=== PATIENT | female | born 1950 | race Caucasian/White ===

== ENCOUNTER → 2017-11-27 14:07 | Outpatient (CLI) | payer MEDICARE, OTHER, SELFPAY ==
--- NOTE | 2017-11-27 14:12 | CT_ITS ---
CT chest w con HISTORY: Follow-up right lung mass, emphysema, history of smoking ITS.REASON: LUNG MASS ORDERING PHYSICIAN: Florian Correa MD PATIENT AGE: 67 years TECHNIQUE: Axial images obtained following the administration of 75 mL of Isovue 370 . Sagittal, and coronal reformatted images are also generated and reviewed. All CT scans at the facility use one or more dose reduction, viz: automated exposure control; ma/kV adjustment per patient size (including targeted exams where dose is matched to indication; i.e. head); or iterative reconstruction technique. COMPARISON: 04/26/2017, 01/18/2017 FINDINGS: There are multiple small isodense lesions in the lower pole of the right lobe of the thyroid gland. This does not appear significantly changed. Irregular opacity once again noted in the right apex. The dimensions are somewhat difficult to measure due to the irregular shape measuring up to 4 cm transverse and 2 cm AP. This does not appear significantly changed. No mediastinal or hilar mass or adenopathy. There are biapical blebs with centrilobular emphysema. Fibrotic changes are present in the right upper lobe medially and in the left apex. There is a calcified granuloma in the left upper lobe. No new nodules are evident. 3 mm noncalcified nodule present in the right middle lobe unchanged. No evidence of aortic aneurysm or central pulmonary embolus. Mild atheromatous changes involving the aorta. No acute bony anomalies. Upper abdominal images show exophytic left renal cysts IMPRESSION: Overall stable CT appearance of the chest. There is been no significant change in the irregular opacity in the right apex which may represent postinflammatory fibrotic changes. Continued annual follow-up is recommended in this patient with history of smoking.
== END ==
PROVIDERS: Family Provider Family Medicine; PCP Family Medicine; Visit Provider Family Medicine
DX: R91.8 Other nonspecific abnormal finding of lung field (principal)
CPT/HCPCS: 71260; Q9967

== ENCOUNTER 2018-02-17 08:30 | Outpatient (RCR) | payer OTHER, SELFPAY ==
--- NOTE | 2017-12-26 11:23 | HMH.PTOPEV ---
PT Outpatient Evaluation Rehab PT Outpatient Evaluation Start: 12/26/17 11:14 Freq: Status: Active Protocol: Document 12/26/17 11:15 KELLEY (Rec: 12/26/17 11:23 KELLEY [id number]) Electronically Signed By Joey Noonan, PT 12/26/17 11:15 Outpatient Therapy Subjective History Subjective History Pt reports injury to neck occurred on 11/23/17 while at work. 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 Pt reports that pain (L arm) then progressed to L sided neck with headache. Pt currently reports constant neck pain L >R, and L UE s/s from shoulder to finger tips. Chief Complaint Pain Paresthesia Weakness Symptom Type Ache Throb Sharp Dull Stabbing Burning Numbness Tingling Shooting Symptoms Relieved By Rest/Positioning Symptoms Aggravated By Physical Activity Lifting Prior Functional Limitations None Current Functional Limitations Reaching Lifting Housework Driving Symptom Description Constant but Variable Level of pain today (0-10) 6 Pain scale - at its best (0-10) 6 Pain scale - at its worst (0-10) 8 Cervical Eval Palpation Cervical Muscles R Cervical Paraspinal L Cervical Paraspinal R Suboccipital L Suboccipital R CT Junction L CT Junction R Upper Trapezius L Upper Trapezius Cervical/Thoracic Palpation Findings Tenderness Spasm Muscle Guarding Posture Head/C-Spine Posture Sitting Position Flexed Head/C-Spine Posture Standing Position Flexed Flexibility Deficits Upper Trapezius Muscle Length (R) Mild Tightness (L) Moderate Tightness Levaetor Scapulae Muscle
== END 2018-02-17 08:31 | disposition home or self-care (01) ==
LOC: PT 08:30
PROVIDERS: Family Provider Family Medicine; PCP Nurse Practitioner Family; Visit Provider Nurse Practitioner Family
DX: M54.12 Radiculopathy, cervical region (principal)
CPT/HCPCS: 97010; 97012; 97014; 97035; 97110; 97140; 97163; G0283

== ENCOUNTER 2018-02-17 09:00 | Outpatient (RCR) | payer OTHER, MEDICARE, SELFPAY ==
--- NOTE | 2017-12-13 15:32 | HMH.OTOPEV ---
OT Inpatient Evaluation Rehab OT Outpatient Eval Start: 12/13/17 15:20 Freq: Status: Active Protocol: Document 12/13/17 15:21 RMSCOTTHALMoises (Rec: 12/13/17 15:32 [facility] SYSTEM[facility]ises [id number]) Electronically Signed By Candace Brown OT 12/13/17 15:21 Outpatient Therapy Subjective History Subjective History Pt is a 67 year old female who reports to therapy for initial evaluation to left shoulder. Pt currently works at [employer] fulltime and started there in October,. Pt reports she was standing on the line at work and reached for something with the left arm and she suddenly had sharp pain go down to the left elbow from the shoulder. Pt's pain has continued. Pt also does work overhead, pushing, pulling, and lifting materials . Pt demonstrates with decreased AROM and strength at left shoulder. Pt will continue to be seen and address these deficits. 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
== END 2018-02-17 09:01 | disposition home or self-care (01) ==
LOC: OT 09:00
PROVIDERS: Family Provider Family Medicine; PCP Nurse Practitioner Family; Visit Provider Nurse Practitioner Family
DX: M25.512 Pain in left shoulder (principal)
CPT/HCPCS: 97014; 97033; 97035; 97110; 97166; G0283

== ENCOUNTER → 2018-03-11 12:46 | Outpatient (CLI) | payer OTHER, SELFPAY ==
--- NOTE | 2018-03-11 12:56 | MR_ITS ---
MR shoulder LT wo con HISTORY:Left shoulder pain extending into the neck and humerus ITS.REASON: pain ORDERING PHYSICIAN: Yessenia Coy PATIENT AGE: 67 years Comparison: None TECHNIQUE: Standard multiplanar multiecho sequences are performed without contrast. FINDINGS: There is moderate acromioclavicular hypertrophy with a downsloping acromion. There is thickening of the supraspinatus tendon with increased T2 signal consistent with tendinopathy/tendinosis. There is discontinuity along the undersurface of the supraspinatus tendon with some heterogeneous signal intensity within the substance of the supraspinatus consistent with partial tear. At the distal aspect of the supraspinatus tendon at the insertion upon the greater tuberosity of the humerus there is focal increased T2 signal suggesting a more prominent partial tear at this region. There is does appear to be some fibers intact especially. A complete thickness tear tear is not identified. Tendinopathy/tendinosis of the infraspinatus tendon also noted also suspect partial tear distally.. The subscapularis and teres minor tendons are intact. No obvious labral tear. Focal increased T2 signal involves the greater tuberosity of the humerus consistent with bone marrow edema at the region of the insertion of the first benign is tendon. Small amount fluid is present in the subcoracoid region. The bicipital tendon is in place IMPRESSION: 1. Acromioclavicular arthropathy with subacromial stenosis which may result in impingement symptomatology. 2. Partial tear of the supraspinatus tendon with tendinopathy/tendinosis. A tear at the insertion on the greater tuberosity as expected with some intact fibers superficially and with edema of the greater tuberosity. 3. Tendinopathy/tendinosis of the infraspinatus tendon with partial tear distally as before
== END ==
PROVIDERS: Family Provider Family Medicine; PCP Nurse Practitioner Family; Visit Provider Nurse Practitioner Family
DX: M25.512 Pain in left shoulder (principal); Z02.6 Encounter for examination for insurance purposes
CPT/HCPCS: 73221

== ENCOUNTER → 2019-04-23 12:52 | Outpatient (CLI) | payer OTHER, SELFPAY ==
--- NOTE | 2019-04-23 13:22 | MR_ITS ---
PROCEDURE: MR SHOULDER LT WO CON CLINICAL INDICATION: LEFT SHOULDER PAIN COMPARISON: No exams were available for comparison TECHNIQUE: Routine multi-echo and multiplanar images. FINDINGS: Signal from the osseous marrow elements are normal except for subchondral increased T2 signal at the left AC joint area along with some surrounding mildly prominent area of increased T2 signal within the soft tissues likely from arthritic changes. The supraspinatus tendon shows 2 sites of abnormal signal, 1 of which involves the anterior insertion at the greater tubercle where there is moderate increased T2 signal and there is a focal full-thickness defect in the supraspinatus tendon approximately 10 millimeters proximal to the greater tubercle. There is perhaps on the minimal amount of fluid in the adjacent subdeltoid bursa. There is narrowing of the glenohumeral joint with loss of the articular cartilage involving the humeral head and glenoid process of the scapula. There is generalized attenuation of the entire labrum especially at the 12 o'clock position. Signal from the surrounding muscles appear to be unremarkable. Long head of the biceps tendon appears to be intact. IMPRESSION: Two sites of abnormal signal involving supraspinatus tendon, and there could be a partial tear at the insertion site at the greater tubercle with a full-thickness tear involving the supraspinatus tendon approximately 1 centimeter proximal to the greater tubercle. Attenuated labrum could be developmental or from chronic degenerative change. Arthritic changes at the AC joint without impingement. Dictated by: Ernesto Rendon 04/23/2019 15:34 Electronically signed by Ernesto Rendon in [facility] 04/23/2019 15:34
== END ==
PROVIDERS: PCP Family Medicine; Visit Provider Orthopaedic Surgery Adult Reconstructive Orthopaedic Surgery
DX: M25.512 Pain in left shoulder (principal)
CPT/HCPCS: 73221

== ENCOUNTER 2019-04-24 14:00 | Outpatient (RCR) | payer OTHER, MEDICARE, SELFPAY ==
--- NOTE | 2018-10-28 14:04 | HMH.RHREAS ---
Rehab Reassessment Rehab OP Re-assessment Start: 07/25/18 10:40 Freq: Status: Active Protocol: Document 10/28/18 12:59 TFRY (Rec: 10/28/18 14:04 TFRY [id number]) Electronically Signed By Marifer Haddad OT 10/28/18 12:59 Rehab Re-assessment Subjective Subjective My shoulder is about 80-85% better. Objective Objective Notes Patient seen this date for skilled occupational therapy services. See exeercise flow sheet for exercises. Reassessment of left shoulder - AROM - flexion - 0-135; abduction - 0-104; int. rot. - 0-50; ext. rot. - 0-12. PROM - left shoulder - flexion - 0 -150; abduction - 0-135; int. rot. - 0-68; ext. rot. - 0-35. Left shoulder strength - flexion - 3+/5; abduction - 3/ 5; int. rot. - 3+/5; ext. rot. - 3+/5. Pain on average is a 5. Patient reports being able to do more around the house than able to do previously. Assessment Progress Assessment Progressing as Expected Assessment Notes ROM/strength are improving. Patient goals met STG's - 7/8 LTG's - / Goals Not Met AROM/strength Plan Plan Continue to work on increasing AROM/strength of left shoulder. Frequency of Therapy 2x/week Duration of therapy 8 weeks Time and Billing Re-Eval Time 5 Re-Eval Billing Units 0 PHYSICIAN CERTIFICATION: I certify the specified therapy services for Narciso Hernandez are required, authorized, and reviewed every 30 days.
== END 2019-04-24 14:05 | disposition home or self-care (01) ==
LOC: OT 14:00
PROVIDERS: Visit Provider Orthopaedic Surgery Adult Reconstructive Orthopaedic Surgery
DX: S43.422A Sprain of left rotator cuff capsule, initial encounter (principal)
CPT/HCPCS: 97014; 97110; 97140; 97164; 97165; G0283

== ENCOUNTER 2019-06-16 10:00 | Outpatient (RCR) | payer OTHER, SELFPAY | END 2019-06-16 10:05 | disposition home or self-care (01) | LOC: OT 10:00 | PROVIDERS: Visit Provider Orthopaedic Surgery Adult Reconstructive Orthopaedic Surgery | DX: M25.512 Pain in left shoulder (principal) | CPT/HCPCS: 97014; 97110; 97140; 97165; G0283 ==

== ENCOUNTER → 2019-08-25 13:16 | Outpatient (CLI) | payer MEDICARE, SELFPAY ==
--- NOTE | 2019-08-25 13:27 | CT_ITS ---
PROCEDURE: CT CHEST W CON CLINCAL INDICATION: chest discomfort Chest pain COMPARISON: CHWWO CT CHEST W/WO CONTRAST from 04/26/[address] chest w con from 11/27/2017 TECHNIQUE: IV Contrast: 75ml Optiray 350 Axial images obtained with sagittal and coronal reformats. All CT scans at the facility use one or more dose reduction, viz: automated exposure control, ma/kV adjustment per patient size (including targeted exams where dose is matched to indication, i.e. head), or iterative reconstruction technique. FINDINGS: There is a septated cystic lesion in the right lobe of the thyroid gland measuring 1.9 cm. No mediastinal or hilar mass or adenopathy. Changes of COPD with centrilobular and paraseptal emphysema. Irregular increased density is once again noted in the right apex which does not appear significantly changed consistent with pulmonary fibrotic cyst changes. There is some scarring also in the left apex. There are other areas of scarring in both lungs. Calcified granuloma is present in the left upper lobe. No new nodules are evident. No lobar consolidation or collapse. Upper abdominal images show prior cholecystectomy. Left renal cysts are noted IMPRESSION: 1. Stable CT appearance of the chest. Irregular increased density once again noted in the right apex not significantly changed the 2. Cystic lesion within the right lobe of the thyroid gland not significantly changed. 3. COPD with scattered areas of scarring with centrilobular and paraseptal emphysema. Dictated by: Reed Lo MD 08/27/2019 08:08 Electronically signed by Reed Lo MD in [facility] 08/27/2019 08:08
[2019-08-25 13:40] LABS: Blood Urea Nitrogen 15 mg/dL (7-18); Creatinine,Serum 0.69 mg/dL (0.55-1.02); Estimated Glomerular Filt Rate 84 ml/min (>60); GFR (African American) 102 ML/MIN (>60)
== END ==
PROVIDERS: PCP Emergency Medicine; Visit Provider Emergency Medicine
DX: R07.89 Other chest pain (principal)
CPT/HCPCS: 36415; 71260; 82565; 84520; Q9967

== ENCOUNTER → 2019-12-18 10:13 | Outpatient (CLI) | payer MEDICARE, SELFPAY ==
--- NOTE | 2019-12-18 10:13 | MM_ITS ---
PROCEDURE: MM DIG SCREENING MAMM BI W/CAD Digital Breast Tomosynthesis Included CLINICAL INDICATION: screening There is no personal or family history of breast cancer. COMPARISON: DIGMAMMS MAMMOGRAM SCREEN-METAL TECHNICIAN N/C from 05/10/2004 DIGMAMMS MAMMOGRAM SCREEN-METAL TECHNICIAN N/C from 07/24/2007 DMSB DIG MAMM-SCREEN JOSUE W/CAD from 01/18/2017 TECHNIQUE: Standard CC and MLO images and 3D Tomosynthesis was obtained. R2 CAD reviewed. FINDINGS: Moderate diffuse fibroglandular densities are seen in the central portions of both breast. The findings of bilateral and symmetrical. There is no suspicious lesion and no suspicious microcalcifications. IMPRESSION: Moderate breast density with no suspicious lesions seen BI-RAD Category: 1 Negative FOLLOW-UP: 1YR 1 Year Follow-up (A letter has been sent to the patient regarding results of the study.) Dictated by: Dr. James Monte MD 12/18/2019 11:[address] James Monte MD in [facility] 12/18/2019 11:16
== END ==
PROVIDERS: PCP Emergency Medicine; Visit Provider Emergency Medicine
DX: Z12.31 Encounter for screening mammogram for malignant neoplasm of breast (principal)
CPT/HCPCS: 77063; 77067

== ENCOUNTER → 2019-12-23 09:33 | Outpatient (CLI) | payer MEDICARE, SELFPAY | PROVIDERS: PCP Emergency Medicine; Visit Provider Emergency Medicine | DX: R06.02 Shortness of breath (principal) | CPT/HCPCS: 94060; 94618; 94640; 94726; 94729 ==

== ENCOUNTER 2020-04-19 15:00 | Outpatient (RCR) | payer OTHER, SELFPAY | END 2020-04-19 16:00 | disposition home or self-care (01) | LOC: OT 15:00 | PROVIDERS: Visit Provider Orthopaedic Surgery Adult Reconstructive Orthopaedic Surgery | DX: M75.102 Unspecified rotator cuff tear or rupture of left shoulder, not specified as traumatic (principal) | CPT/HCPCS: 97014; 97110; 97140; 97164; 97166; G0283 ==

== ENCOUNTER 2020-07-20 13:08 | Emergency (ER) | payer MEDICARE, SELFPAY ==
[2020-07-20] VITALS (11 sets, daily range): BP systolic 117–143; BP diastolic 64–95; PULSE 88–100; RESP 18–20; TEMP 36.1–37; O2SAT 96–97; BMI 17.5
--- NOTE | 2020-07-20 13:03 | ECG_ITS ---
APPROVED REPORT Exam: Resting ECG HR:99 bpm ECG Measurements Heart Rate 99 AXES LA 146 P 87 QRSd 94 QRS 59 QT 346 T 72 QTc 444 Conclusion Normal sinus rhythm Late r wave progression - unchanged from prior Abnormal ECG Electronically signed by : Romulo Flores, 07/21/2020 19:21:46
--- NOTE | 2020-07-20 13:12 | XR_ITS ---
PROCEDURE: XR CHEST PORTABLE CLINICAL HISTORY: CP, SOA COMPARISON: CR CXR1 CHEST-PORTABLE from 09/22/2013 CR CXR1VP XR chest portable from 11/23/[address] CHEST W CON from 08/25/2019 FINDINGS: Moderate emphysematous changes are noted similar to the most recent chest 11/23/2017. There may be mild bulous change right upper lobe. There is minimal postinflammatory scarring left lower lobe and this was seen previously. There is no acute infiltrate. Cardiac size is normal and the peripheral vascularity is somewhat attenuated consistent emphysematous changes. IMPRESSION: Moderate COPD, no acute chest pathology noted Dictated by: Dr. James Monte MD 07/20/2020 13:39 Dr. James Monte MD in [facility] 07/20/2020 13:39
--- NOTE | 2020-07-20 13:19 | PC.NURSE ---
Lab at bedside
[2020-07-20 13:43] LABS: Basophils # 0.2 K/mm3 (0-0.2); Basophils % 1.6 % (0.1-2.0); Eosinophils # 0.2 K/mm3 (0.0-0.4); Eosinophils % 1.7 % (0.1-12.0); Hematocrit 57.7 % (37.0-47.0); Lymphocytes # 3.5 K/mm3 (0.7-4.5); Lymphocytes % 34.5 % (10-50); Mean Corpuscular HGB Conc 32.2 g/dL (31.8-35.4); Mean Corpuscular Hemoglobin 28.8 pg (27.0-31.2); Mean Corpuscular Volume 89.4 fl (81-99); Mean Platelet Volume 7.4 fl (7.4-10.4); Monocytes # 0.4 K/mm3 (0.1-1.0); Monocytes % 4.1 % (1.7-9.3); Neutrophils # 5.9 K/mm3 (1.8-7.8); Neutrophils % 58.1 % (37.0-80.0); Platelet Count 312 K/mm3 (142-424); Red Blood Count 6.45 M/mm3 (4.20-5.40); Red Cell Distribution Width 15.3 % (11.5-17.5); White Blood Count 10.2 K/mm3 (4.8-10.8)
[2020-07-20 13:44] LABS: Hemoglobin 18.6 g/dL (12.2-16.2)
[2020-07-20 13:59] LABS: Anion Gap 12.8 mEq/L (5-15); Blood Urea Nitrogen 9 mg/dl (7-17); Calcium 10.8 mg/dl (8.4-10.2); Carbon Dioxide 25 mmol/L (22.0-30.0); Chloride 102 mmol/L (98-107); Creatinine Clearance Estimated 37 mL/min (50-200); Estimated Glomerular Filt Rate 82 ml/min (>60); GFR (African American) 100 ML/MIN (>60); Glucose 99 mg/dl (74-100); Lactic Acid 1.1 mmol/L (0.7-2.1); Potassium 4.8 mmoL/L (3.5-5.1); Sodium 135 mmol/L (136-145)
[2020-07-20 14:14] LABS: Troponin I < 0.01 ng/ml (0.00-0.034)
--- NOTE | 2020-07-20 16:19 | HMH.EDCP ---
ED Disposition Clinical Impression: Atypical chest pain Disposition: Home, Self-Care Condition on Discharge: Good Instructions: DI for Atypical Chest Pain Additional Instructions: Glad To let you know that we have checked your labs including cardiac enzymes and also troponin 3 hours apart and chest x-ray and all of these findings have been within normal limits; please follow-up as needed Referrals: Gama Gil MD [Primary Care Provider] - - Critical Care Critical Care Time: No Attestation: On 07/20/20, the high probability of a clinically significant, sudden or life threatening deterioration of the following system(s) required my full and direct attention, intervention and personal management. The time I documented below is in addition to time spent performing reported procedures but includes the following listed in this critical care notation. Medical Decision Making - Medical Records Medical records reviewed: Yes: I reviewed the patient's medical records. MR Comment: This is a 70-year-old female here with a complaint of chest pain; states it radiates to her back we have checked labs including cardiac enzymes and also troponin 3 hours apart and chest x-ray and all of these findings have been within normal limits; - Chris Inquiry Pt receiving controlled substance: No Vital Signs: 07/20/20 13:08 07/20/20 13:33 07/20/20 13:40 Temperature 96.9 F L Temperature Source Temporal Artery Scan Pulse Rate [Apical] 96 H 94 H 90 Respiratory Rate 18 20 Blood Pressure [Right Arm] 130/84 143/81 H 143/81 H Blood Pressure Mean [Right Arm] 99 101 101 Blood Pressure Source [Right Arm] Automatic Cuff Automatic Cuff Automatic Cuff Blood Pressure Position [Right Arm] Sitting Sitting Sitting 02 Sat by Pulse Oximetry 97 96 96 Oxygen Delivery Method Room Air Room Air 07/20/20 14:00 07/20/20 14:19 07/20/20 14:24 Temperature Temperature Source Pulse Rate [Apical] 89 90 90 Respiratory Rate Blood Pressure [Right Arm] 140/86 130/76 130/76 Blood Pressure Mean [Right Arm] 104 94 94 Blood Pressure Source [Right Arm] Automatic Cuff Automatic Cuff Automatic Cuff Blood Pressure Position [Right Arm] Sitting Sitting Sitting 02 Sat by Pulse Oximetry 96 97 97 Oxygen Delivery Method Room Air Room Air Room Air 07/20/20 15:00 07/20/20 15:30 07/20/20 16:26 Temperature Temperature Source Pulse Rate [Apical] 91 H 89 100 H Respiratory Rate Blood Pressure [Right Arm] 136/86 141/81 H 117/95 H Blood Pressure Mean [Right Arm] 102 101 102 Blood Pressure Source [Right Arm] Automatic Cuff Automatic Cuff Automatic Cuff Blood Pressure Position [Right Arm] Sitting Sitting Sitting 02 Sat by Pulse Oximetry 96 97 96 Oxygen Delivery Method Room Air Room Air Room Air 07/20/20 16:45 Temperature Temperature Source Pulse Rate [Apical] 88 Respiratory Rate Blood Pressure [Right Arm] 128/81 Blood Pressure Mean [Right Arm] 96 Blood Pressure Source [Right Arm] Automatic Cuff Blood Pressure Position [Right Arm] Sitting 02 Sat by Pulse Oximetry 97 Oxygen Delivery Method Room Air - Lab Data Lab results reviewed: Yes: I reviewed the patient's lab results. Lab Results 07/20/20 13:21: WBC 10.2, RBC 6.45 H, Hgb 18.6 H*, Hct 57.7 H, MCV 89.4, MCH 28.8, MCHC 32.2, RDW 15.3, Plt Count 312, MPV 7.4, Neut % (Auto) 58.1, Lymph % (Auto) 34.5, [place] % (Auto) 4.1, Eos % (Auto) 1.7, Baso % (Auto) 1.6, Neut # (Auto) 5.9, Lymph # (Auto) 3.5, [place] # (Auto) 0.4, Eos # (Auto) 0.2, Baso # (Auto) 0.2 07/20/20 13:21: Sodium 135 L, Potassium 4.8, Chloride 102, Carbon Dioxide 25, Anion Gap 12.8, BUN 9, Creatinine 0.70, Estimated Creat Clear 37, Estimated GFR 82, Est GFR ( Amer) 100, Glucose 99, Calcium 10.8 H, Troponin I < 0.01 07/20/20 13:21: Lactate 1.1 07/20/20 16:15: Troponin I < 0.01 Result diagrams: 07/20/20 13:21 07/20/20 13:21 Orders (Tests/Meds): ED MEDICATIONS Discontinued Medications Generic Name Dose R
--- NOTE | 2020-07-20 16:20 | PC.NURSE ---
Called for dietary tray
--- NOTE | 2020-07-20 16:51 | PC.NURSE ---
Pt up to restroom at this time. States her DAVALOS has improved
[2020-07-20 16:58] LABS: Troponin I < 0.01 ng/ml (0.00-0.034)
== END 2020-07-20 18:17 | disposition home or self-care (01) ==
PROVIDERS: Emergency Provider Emergency Medicine; PCP Emergency Medicine
DX: R07.89 Other chest pain (principal); F41.8 Other specified anxiety disorders; F17.210 Nicotine dependence, cigarettes, uncomplicated; Z88.0 Allergy status to penicillin; Z79.899 Other long term (current) drug therapy
CPT/HCPCS: 36415; 71045; 80048; 83605; 84484; 85025; 87040; 93005; 96374; 99283

== ENCOUNTER 2020-07-27 14:14 | Observation (INO) | payer MEDICARE, SELFPAY ==
[2020-07-27 15:18] VITALS: BP 128/77; PULSE 95; RESP 20; TEMP 36.4; O2SAT 98; BMI 18.4
--- NOTE | 2020-07-27 15:19 | PC.NURSE ---
LATE ENTRY: PT ARRIVED TO THE FLOOR AT 1420
--- NOTE | 2020-07-27 15:31 | CA_ITS ---
APPROVED REPORT EXAM: Comprehensive 2D, Doppler, and color-flow Echocardiogram [employer]: Karla Moser CRT Ht: 5 ft 3 in Wt: 104lbs BSA: 1.46 BP: 128/77 mmHg Indications: Chest Pain, COPD, Shortness of Breath, smoking 2D Dimensions LVOT 1.53 cm (M/F) 1.5-2.5 M-Mode Dimensions RVDd 2.23 cm (0.9-2.6) LA Diam 1.66 cm (1.9-4.0) LVDd 3.25 cm (3.5-5.7) Ao Diam 2.83 cm (2.0-3.7) LVDs 1.97 cm (3.5-5.7) IVSd 1.28 cm (0.6-1.1) PWd 0.58 cm (0.6-1.1) EF (Teich) 71.30% FS 39.40% EDV (Teich) 42.50 mL ESV (Teich) 12.20 mL LV Diastology E Decel Time 158.00 (160-240 msec) E/A Ratio 0.67 MED E' 6.50 (< 7 cm/sec) MED A' 11.90 cm/s E'/MED E' Ratio 8.83 (>14) LAT E' 8.60 (<10 cm/sec) LAT A' 9.70 cm/s E/LAT E' Ratio 6.67 (>14) Aortic Valve AO Peak GR. 5.10 mmHg Mitral Valve MV A Velocity 86.00 (40-130 cm/s) E/A Ratio 0.67 MV Decel. Time 158.00 (160-240 ms) Pulmonary Valve PV Peak Velocity 38.00 (50-150 cm/s) Tricuspid Valve TR P. Velocity 181.00 cm/s RAP Estimate 10.00 mmHg RVSP 23.10 mmHg Left Ventricle Left atrium is mildly enlarged, left ventricle is normal size, mild concentric left ventricular hypertrophy, visually estimated ejection fraction 55% with no regional wall motion abnormality, grade 1 diastolic dysfunction seen without tissue Doppler evidence of raise left atrial pressure. Right Ventricle Right atrium and right ventricle are mildly enlarged with normal contractility. Aortic Valve Aortic valve is minimally thickened and fibrosed, there is no aortic stenosis or aortic insufficiency. Mitral Valve Mitral valve is minimally thickened, there is mild mitral regurgitation. Tricuspid Valve Tricuspid valve is grossly normal, there is mild tricuspid regurgitation, tricuspid regurgitation jet velocity is inadequate for calculation of the right ventricular systolic pressure. Pulmonic Valve Pulmonic valve is poorly visualized. Great Vessels Aortic root is normal size. Pericardium No significant pericardial effusion noted. Conclusion 1. Mild biatrial enlargement, normal left ventricular size, mild concentric left ventricular hypertrophy, visually estimated ejection fraction 55% with no regional wall motion abnormality, grade 1 diastolic dysfunction seen without tissue Doppler evidence of raise left atrial pressure. 2. Mildly enlarged right ventricle with normal contractility. 3. Mild mitral and tricuspid regurgitation. 4. No significant pericardial effusion noted. Electronically signed by : Alex Barroso, 07/28/2020 15:06:48
--- NOTE | 2020-07-27 15:35 | HMH.HP ---
*Admission Date: 07/27/20 *Chief complaint: chest pain *History of present illness: this pt is having progressive episodes of chest pain with minimal exertion and at rest - pt has tob use and fh with copd- pt was seen in the ed with recent chest pain and was seen in the ed - she has increased pain over the last few days - pt was seen in the pcp office and admitted with unstable angina - [facility] History I have reviewed the patient's past medical history: Yes Medical History: Reports:: Anxiety, Depression Denies:: Cancer, Diabetes Mellitus Type 1, Diabetes Mellitus Type 2, MRSA *Have you ever received a pneumonia vaccine?: Yes *Have you received a flu vaccine this season?: Yes Other Medical History: Reports: Arthritis Other Surgeries: Yes: Appendectomy, Cholecystectomy, Colonoscopy Amputation: No Fractures: No - *Social History Last grade of school completed: GED Smoking Status: Current every day smoker Tobacco Type: cigarettes # Packs/Day (cigarettes): 1 Alcohol Intake: never Alcohol Intake Frequency:: holidays/special occasions only Substance Use Type: denies use *Occupational Status:: other Housing: house Household Members: none *Travel in the last 8 weeks: None - Psychiatric History Pschychiatric History:: Reports:: Anxiety, Depression Family Hx:: Other Review of Systems - Review of Systems Review of systems:: pertinent systems reviewed and negative unless documented below - Constitutional Denies headache(s) - Eyes Denies change in vision - ENT Denies sore throat - *Cardiovascular Reports chest pain, Reports shortness of breath - *Respiratory Denies cough, Denies coughing up blood - *Gastrointestinal Denies abdominal pain - *Genitourinary Denies painful urination - *Musculoskeletal Denies joint pain - Integumentary/Breasts Denies rash - *Neurologic Denies seizure-like activity - Psychiatric Denies anxiety Meds Home Medications Medication Instructions Recorded Confirmed Type Albuterol Sulfate [Proventil Hfa] 2 puff INHALATION QID 07/20/20 07/27/20 History Umeclidinium Brm/Vilanterol Tr 1 inh INHALATION DAILY 07/20/20 07/27/20 History [Anoro Ellipta] Allergies Allergy/AdvReac Type Severity Reaction Status Date / Time chlorzoxazone Allergy Unknown COULDN'T Verified 07/27/20 13:07 [From PARAFON FORTE] MOVE Penicillins [PENICILLINS] Allergy Unknown Verified 07/27/20 13:07 Exam Vital signs and Labs for Last 24 Hours: Temp Pulse Resp BP Pulse Ox 97.6 F 95 H 20 128/77 98 07/27/20 15:18 07/27/20 15:18 07/27/20 15:18 07/27/20 15:18 07/27/20 15:18 I & O for Last 24 hours: Intake & Output 07/25/20 07/26/20 07/27/20 07/28/20 11:59 11:59 11:59 11:59 Weight 104 lb 4.8 oz - Constitutional no acute distress, thin - *Routine HEENT Exam Head: Present: normocephalic Eye: Present: EOMI, PERRL ENT: Present: mucous membranes dry - *Routine Neck Exam Present: supple. Absent: JVD - *Routine Respiratory Exam Present: decreased breath sounds, wheezes - *Routine Cardiovascular Exam Present: RRR, murmur, S4 - *Routine Abdominal Exam Present: soft - *Routine Extremities Exam Absent: calf tenderness - *Routine Skin Exam Present: intact - *Routine Neurological Exam Present: alert, oriented X3, CN II-XII intact - Routine Psychiatric Exam Present: normal affect Assessment and Plan (1) Unstable angina Status: Acute Category: Medical Code(s): I20.0 - Unstable angina (2) Chronic obstructive pulmonary disease Status: Chronic Qualifiers: COPD type: emphysema Emphysema type: unspecified Qualified Code(s): J43.9 - Emphysema, unspecified Category: Medical Code(s): J44.9 - Chronic obstructive pulmonary disease, unspecified (3) Tobacco use Status: Chronic Category: Social Hx Code(s): Z72.0 - Tobacco use (4) Low body mass index (BMI) Status: Acute Category: Medical
--- NOTE | 2020-07-27 15:46 | HMH.CNCARD ---
History of Present Illness Consult date: 07/27/20 Requesting physician: Gama Gil Consult reason: chest pain Chief complaint: chest pain History of present illness: This is a 70-year-old white female who presented to her primary care provider's office today for chest pain and then was subsequently admitted to the hospital from her primary care provider's office. The patient states that she has been having chest pain for the last several weeks but it worsened on July 202019. The patient came to the emergency department here at [facility] and was worked up and subsequently discharged from the hospital. She states that she has persisted to have chest pain since that time. She describes it as an aching sensation in the left side of her chest. She states that sometimes there is pressure as well. It radiates down her left arm and up the left side of her neck and into the left side of her jaw and her left ear. She states that this causes significant numbness and heaviness in her left arm. She states that this can be constant for several hours and does not really go away. She states that the pain will improve but then come right back. She states nothing worsens the pain. Nothing really helps to improve the pain either. She states that it is associated with shortness of breath and nausea. She describes this as a 10 out of 10 in intensity. She states that she has just not felt well since having this chest pain. She is a smoker. She denies any family history of heart disease. Although her mother did have congestive heart failure. She reports no personal history of heart disease. She denies any hypertension, hyperlipidemia or diabetes. [facility] History I have reviewed the patient's past medical history: Yes Medical History: Reports:: Anxiety, Depression Denies:: Cancer, Diabetes Mellitus Type 1, Diabetes Mellitus Type 2, MRSA *Have you ever received a pneumonia vaccine?: Yes *Have you received a flu vaccine this season?: Yes Other Medical History: Reports: Arthritis Other Surgeries: Yes: Appendectomy, Cholecystectomy, Colonoscopy Amputation: No Fractures: No - *Social History Last grade of school completed: GED Smoking Status: Current every day smoker Tobacco Type: cigarettes # Packs/Day (cigarettes): 1 Alcohol Intake: never Alcohol Intake Frequency:: holidays/special occasions only Substance Use Type: denies use *Occupational Status:: other Housing: house Household Members: none *Travel in the last 8 weeks: None - Psychiatric History Pschychiatric History:: Reports:: Anxiety, Depression Family Hx:: Other Meds Home Medications Medication Instructions Recorded Confirmed Type Albuterol Sulfate [Proventil Hfa] 2 puff INHALATION QID 07/20/20 07/27/20 History Umeclidinium Brm/Vilanterol Tr 1 inh INHALATION DAILY 07/20/20 07/27/20 History [Anoro Ellipta] Allergies Allergy/AdvReac Type Severity Reaction Status Date / Time chlorzoxazone Allergy Unknown COULDN'T Verified 07/27/20 13:07 [From PARAFON FORTE] MOVE Penicillins [PENICILLINS] Allergy Unknown Verified 07/27/20 13:07 Exam Vital signs and Labs for Last 24 Hours: Temp Pulse Resp BP Pulse Ox 97.6 F 95 H 20 128/77 98 07/27/20 15:18 07/27/20 15:18 07/27/20 15:18 07/27/20 15:18 07/27/20 15:18 I & O for Last 24 hours: Intake & Output 07/24/20 07/25/20 07/26/20 07/27/20 23:59 23:59 23:59 23:59 Weight 104 lb 4.8 oz - Constitutional no acute distress, average body habitus - *Routine HEENT Exam Head: Present: normocephalic, atraumatic Eye: Present: EOMI, PERRL ENT: Present: mucous membranes moist - *Routine Neck Exam Present: supple, full ROM, normal carotid upstroke. Absent: JVD, carotid bruit, lymphadenopathy - *Routine Respiratory Exam Present: CTA bilaterally - *Routine Cardiovascular Exam Present: RRR, Normal S1, Normal S2. Absent: murmur - *Routine Abdominal Exam Present: soft,
[2020-07-27 15:48] LABS: Basophils # 0.2 K/mm3 (0-0.2); Basophils % 1.4 % (0.1-2.0); Eosinophils # 0.1 K/mm3 (0.0-0.4); Hematocrit 52.8 % (37.0-47.0); Hemoglobin 17.1 g/dL (12.2-16.2); Lymphocytes % 36.7 % (10-50); Mean Corpuscular HGB Conc 32.4 g/dL (31.8-35.4); Mean Corpuscular Hemoglobin 28.6 pg (27.0-31.2); Mean Corpuscular Volume 88.4 fl (81-99); Monocytes # 0.5 K/mm3 (0.1-1.0); Monocytes % 4.6 % (1.7-9.3); Neutrophils # 6.2 K/mm3 (1.8-7.8); Neutrophils % 56.3 % (37.0-80.0); Platelet Count 337 K/mm3 (142-424); Red Blood Count 5.97 M/mm3 (4.20-5.40); White Blood Count 10.9 K/mm3 (4.8-10.8)
[2020-07-27 15:56] LABS: Alanine Aminotransferase 13 U/L (12-78); Albumin Level 4.7 g/dl (3.5-5.0); Albumin/Globulin Ratio 1.4 (1.1-1.8); Alkaline Phosphatase 98 U/L (38-126); Anion Gap 14.4 mEq/L (5-15); Aspartate Amino Transferase 23 U/L (14-36); Bilirubin,Total 0.7 mg/dl (0.2-1.3); Blood Urea Nitrogen 12 mg/dl (7-17); Calcium 10.5 mg/dl (8.4-10.2); Carbon Dioxide 26 mmol/L (22.0-30.0); Chloride 102 mmol/L (98-107); Cholesterol 237 mg/dl (140-200); Creatinine Clearance Estimated 39 mL/min (50-200); Estimated Glomerular Filt Rate 99 ml/min (>60); GFR (African American) 119 ML/MIN (>60); Globulin 3.3 g/dL (1.3-3.2); Glucose 100 mg/dl (74-100); HDL Cholesterol 59 mg/dl (40-60); Magnesium 1.9 mg/dl (1.6-2.3); Potassium 4.4 mmoL/L (3.5-5.1); Sodium 138 mmol/L (136-145); Triglycerides 94 mg/dl (30-150); VLDL Cholesterol 19 mg/dL (0-40)
[2020-07-27 16:00] VITALS: PULSE 90
[2020-07-27 16:00] LABS: INR 0.98 (0.9-1.1); Prothrombin Time 10.9 seconds (9.4-11.8)
[2020-07-27 16:07] LABS: Direct LDL Cholesterol 157.32 mg/dL (100-129)
[2020-07-27 16:09] LABS: Coronavirus 19 IgG Antibody Negative (Negative); Coronavirus 19 IgM Antibody Negative (Negative)
[2020-07-27 16:14] LABS: Troponin I < 0.01 ng/ml (0.00-0.034)
[2020-07-27 20:00] VITALS: BP 121/73; PULSE 72; PULSE 80; RESP 17; TEMP 36.7; O2SAT 96
[2020-07-27 21:56] LABS: Troponin I < 0.01 ng/ml (0.00-0.034)
[2020-07-28] VITALS (15 sets, daily range): BP systolic 86–129; BP diastolic 52–76; PULSE 48–80; RESP 16–18; TEMP 36.6–36.7; O2SAT 94–98; BMI 18.4
--- NOTE | 2020-07-28 | IR_ITS ---
APPROVED REPORT Patient Location: Inpatient PROCEDURES Left heart catheterization Left ventriculogram Selective coronary angiogram INDICATION Unstable angina Informed consent was obtained prior to the procedure. COMPLICATIONS NONE Estimated Blood Loss: LESS THAN 10 ML TECHNIQUE One percent lidocaine used to anesthetize the right anterior aspect of the wrist. The right radial artery was accessed via the Seldinger technique. A 6 Serbian sheath was placed in the right radial artery. 2.5 mg of verapamil, 800 mcg of nitroglycerin, 1mg Lidocaine and 5000 U Heparin were given through the arterial sheath. The trap catheter was also used to perform left heart catheterization, left ventriculogram and selective coronary angiogram. At the end of the procedure the sheath was removed good hemostasis was achieved using Traclet band, patient was transferred to the postop holding area in stable condition. ANGIOGRAPHIC RESULTS The left main artery Has a distal eccentric 20% stenosis The left anterior descending artery Has an ostial 10 to 20% stenosis with mild mid vessel 10 to 20% stenoses The circumflex artery Is a nondominant yet still large vessel with a mid vessel 30% stenosis The right coronary artery Is a large dominant vessel and has a proximal smooth 30 to 40% stenosis The GOLD ventriculogram reveals Normal 65% The left ventricular end-diastolic pressure 10 mmHg IMPRESSION Mild to moderate nonflow limiting coronary disease as described above Normal ejection fraction Normal left ventricular end-diastolic pressure PLAN 1. Medical management 2. Aggressive risk factor modification Electronically signed by : Keshawn Lang, 07/28/2020 14:24:01
--- NOTE | 2020-07-28 05:56 | PC.NURSE ---
Pt has been A&O x4 this shift. Pt has only c/o a headache for which Tylenol 650 was administered per SEP, pt slept soundly afterwards. Pt able to ambulate to bathroom, tolerated well. UOP has been adequate. Pt has nitro paste on per SEP but has not c/o chest pain this shift. Last ECG read shows NSR with peaked T waves. Vital signs have been stable. Lung sounds clear, sats in high 90s on RA. bowel sounds positive x4, abd soft and nontender. NPO since midnight. Call light in reach, no concerns at this time.
--- NOTE | 2020-07-28 07:13 | HMH.PNCARD ---
Subjective Date: 07/28/20 Time: 07:14 Principal diagnosis: chest pain Interval history: 70-year-old white female in bed in no acute distress. Denies any chest pain overnight. Troponins overnight are returned normal. Echocardiogram results are pending. Exam Vital signs and Labs for Last 24 Hours: Temp Pulse Resp BP Pulse Ox 97.9 F 60 17 113/69 96 07/28/20 04:00 07/28/20 04:00 07/28/20 04:00 07/28/20 04:00 07/28/20 04:00 Laboratory Results - last 24 hr 07/27/20 14:40: WBC 10.9 H, RBC 5.97 H, Hgb 17.1 H, Hct 52.8 H, MCV 88.4, MCH 28.6, MCHC 32.4, RDW 15.0, Plt Count 337, MPV 8.0, Neut % (Auto) 56.3, Lymph % (Auto) 36.7, [place] % (Auto) 4.6, Eos % (Auto) 1.0, Baso % (Auto) 1.4, Neut # (Auto) 6.2, Lymph # (Auto) 4.0, [place] # (Auto) 0.5, Eos # (Auto) 0.1, Baso # (Auto) 0.2 07/27/20 14:40: PT 10.9, INR 0.98 07/27/20 14:40: Sodium 138, Potassium 4.4, Chloride 102, Carbon Dioxide 26, Anion Gap 14.4, BUN 12, Creatinine 0.60, Estimated Creat Clear 39, Estimated GFR 99, Est GFR ( Amer) 119, Glucose 100, Calcium 10.5 H, Magnesium 1.9, Total Bilirubin 0.7, AST 23, ALT 13, Alkaline Phosphatase 98, Total Protein 8.0, Albumin 4.7, Globulin 3.3 H, Albumin/Globulin Ratio 1.4, Triglycerides 94, Cholesterol 237 H, LDL Cholesterol Direct 157.32 H, VLDL Cholesterol 19, HDL Cholesterol 59, Cholesterol/HDL Ratio 4.0 H 07/27/20 14:40: Troponin I < 0.01 07/27/20 14:40: SARS-CoV-2 IgG Ab (Rapid) Negative, SARS-CoV-2 IgM Ab (Rapid) Negative 07/27/20 21:25: Troponin I < 0.01 I & O for Last 24 hours: Intake & Output 07/25/20 07/26/20 07/27/20 07/28/20 11:59 11:59 11:59 11:59 Intake Total 440 / 440 Output Total 500 / 500 Balance -60 / -60 Weight 104 lb 4.811 oz - Constitutional no acute distress - *Routine HEENT Exam Head: Present: normocephalic Eye: Present: EOMI, PERRL ENT: Present: mucous membranes moist - *Routine Neck Exam Present: supple. Absent: lymphadenopathy - *Routine Respiratory Exam Present: CTA bilaterally - *Routine Cardiovascular Exam Present: RRR - *Routine Abdominal Exam Present: soft, normoactive bowel sounds. Absent: tenderness - *Routine Extremities Exam Absent: cyanosis, clubbing, edema - *Routine Skin Exam Present: warm. Absent: rash - *Routine Neurological Exam Present: alert, oriented X3 Progress Note: A&P Assessment and Plan for All Diagnoses:: 1. Chest pain/unstable angina, plan for cardiac catheterization today 2. Hyperlipidemia, consider starting statin therapy pending left heart catheterization results 3. Further recommendations pending cardiac cath and echo results.
--- NOTE | 2020-07-28 07:47 | HMH.PHAVTE ---
[facility] VTE Monitoring - Patient Demographics Admission date: 07/27/20 Report Date: 07/28/20 Time: 07:47 Allergies/Adverse Reactions: Patient Allergies chlorzoxazone [From PARAFON FORTE] Allergy (Unknown, Verified 07/27/20 13:07) COULDN'T MOVE Penicillins [PENICILLINS] Allergy (Unknown, Verified 07/27/20 13:07) Height: 1.6 m Weight: 47.31 kg Patient Problems: Current Active Problems Unstable angina (Acute) Low body mass index (BMI) (Acute) Chronic obstructive pulmonary disease (Chronic) Tobacco use (Chronic) - VTE Risk Labs: VTE Related Lab Results Hgb 17.1 g/dL (12.2-16.2) H 07/27/20 14:40 Hct 52.8 % (37.0-47.0) H 07/27/20 14:40 Plt Count 337 K/mm3 (142-424) 07/27/20 14:40 PT 10.9 seconds (9.4-11.8) 07/27/20 14:40 INR 0.98 (0.9-1.1) 07/27/20 14:40 BUN 12 mg/dl (7-17) 07/27/20 14:40 Creatinine 0.60 mg/dl (0.52-1.04) 07/27/20 14:40 Estimated Creat Clear 39 mL/min (50-200) 07/27/20 14:40 VTE Score: 4 VTE Risk Level: Low Risk - Prophylaxis VTE Prophylaxis Ordered?: Yes Types of VTE Prophylaxis: TEDS Knee High Location of Applied Device: Bilateral Lower Extremeties
--- NOTE | 2020-07-28 07:48 | HMH.PHAINT ---
MEDICATION RECONCILIATION COMPLETED ON PATIENT USING EXTERNAL FILL HISTORY FROM PHARMACY. -EVELYN GALAN, [place]
--- NOTE | 2020-07-28 14:36 | HMH.DCSUM ---
General - General Admission date:: 07/27/20 Discharge date: 07/28/20 HPI HPI: this pt is having progressive episodes of chest pain with minimal exertion and at rest - pt has tob use and fh with copd- pt was seen in the ed with recent chest pain and was seen in the ed - she has increased pain over the last few days - pt was seen in the pcp office and admitted with unstable angina - Hospital Course Hospital Course: Laboratory Tests 07/27/20 07/27/20 07/27/20 14:40 14:40 14:40 WBC 10.9 H RBC 5.97 H Hgb 17.1 H Hct 52.8 H MCV 88.4 MCH 28.6 MCHC 32.4 RDW 15.0 Plt Count 337 MPV 8.0 Neut % (Auto) 56.3 Lymph % (Auto) 36.7 [place] % (Auto) 4.6 Eos % (Auto) 1.0 Baso % (Auto) 1.4 Neut # (Auto) 6.2 Lymph # (Auto) 4.0 [place] # (Auto) 0.5 Eos # (Auto) 0.1 Baso # (Auto) 0.2 PT 10.9 INR 0.98 Sodium 138 Potassium 4.4 Chloride 102 Carbon Dioxide 26 Anion Gap 14.4 BUN 12 Creatinine 0.60 Estimated Creat Clear 39 Estimated GFR 99 Est GFR ( Amer) 119 Glucose 100 Calcium 10.5 H Magnesium 1.9 Total Bilirubin 0.7 AST 23 ALT 13 Alkaline Phosphatase 98 Troponin I Total Protein 8.0 Albumin 4.7 Globulin 3.3 H Albumin/Globulin Ratio 1.4 Triglycerides 94 Cholesterol 237 H LDL Cholesterol Direct 157.32 H VLDL Cholesterol 19 HDL Cholesterol 59 Cholesterol/HDL Ratio 4.0 H SARS-CoV-2 IgG Ab (Rapid) SARS-CoV-2 IgM Ab (Rapid) 07/27/20 07/27/20 07/27/20 14:40 14:40 21:25 WBC RBC Hgb Hct MCV MCH MCHC RDW Plt Count MPV Neut % (Auto) Lymph % (Auto) [place] % (Auto) Eos % (Auto) Baso % (Auto) Neut # (Auto) Lymph # (Auto) [place] # (Auto) Eos # (Auto) Baso # (Auto) PT INR Sodium Potassium Chloride Carbon Dioxide Anion Gap BUN Creatinine Estimated Creat Clear Estimated GFR Est GFR ( Amer) Glucose Calcium Magnesium Total Bilirubin AST ALT Alkaline Phosphatase Troponin I < 0.01 < 0.01 Total Protein Albumin Globulin Albumin/Globulin Ratio Triglycerides Cholesterol LDL Cholesterol Direct VLDL Cholesterol HDL Cholesterol Cholesterol/HDL Ratio SARS-CoV-2 IgG Ab (Rapid) Negative SARS-CoV-2 IgM Ab (Rapid) Negative cath report.: ANGIOGRAPHIC RESULTS The left main artery Has a distal eccentric 20% stenosis The left anterior descending artery Has an ostial 10 to 20% stenosis with mild mid vessel 10 to 20% stenoses The circumflex artery Is a nondominant yet still large vessel with a mid vessel 30% stenosis The right coronary artery Is a large dominant vessel and has a proximal smooth 30 to 40% stenosis The GOLD ventriculogram reveals Normal 65% The left ventricular end-diastolic pressure 10 mmHg IMPRESSION Mild to moderate nonflow limiting coronary disease as described above Normal ejection fraction Normal left ventricular end-diastolic pressure PLAN 1. Medical management 2. Aggressive risk factor modification pt will be dc.stopped asa and continue metoprolol. progress Note: A&P Assessment and Plan for All Diagnoses:: 1. Chest pain/unstable angina, plan for cardiac catheterization today 2. Hyperlipidemia, consider starting statin therapy pending left heart catheterization results 3. Further recommendations pending cardiac cath and echo results. Objective Vital signs: Temp Pulse Resp BP Pulse Ox 97.8 F 59 L 18 108/58 L 97 07/28/20 07:56 07/28/20 14:05 07/28/20 14:05 07/28/20 14:05 07/28/20 14:05 no acute distress - *Routine HEENT Exam Head: Present: normocephalic Eye: Present: PERRL ENT: Present: mucous membranes moist - *Routine Neck Exam Present: supple - *Routine Respiratory Exam Present: CTA bilaterally - *Routine Cardiovascular
== END 2020-07-28 18:28 | disposition home or self-care (01) ==
PROVIDERS: Internal Medicine; Nurse Practitioner Family; Admitting Provider Emergency Medicine; PCP Emergency Medicine; Visit Provider Emergency Medicine
DX: I25.110 Atherosclerotic heart disease of native coronary artery with unstable angina pectoris (principal); Z72.0 Tobacco use; J44.9 Chronic obstructive pulmonary disease, unspecified; Z88.0 Allergy status to penicillin; Z88.8 Allergy status to other drugs, medicaments and biological substances
CPT/HCPCS: 36415; 80053; 80061; 83735; 84484; 85025; 85610; 86328; 93306; 93458; 99152; C1725; C1769; G0378; J1644; Q9967

== ENCOUNTER → 2020-08-16 11:33 | Outpatient (CLI) | payer MEDICARE, SELFPAY ==
--- NOTE | 2020-08-16 11:38 | CT_ITS ---
PROCEDURE: CT HEAD/BRAIN WO CON CLINICAL INDICATION: blurry vision Severe with blurred vision in left occipital pain COMPARISON: CT HDWO CT HEAD W/O CONTRAST from 01/05/2016 TECHNIQUE: Axial images obtained. All CT scans at the facility use one or more dose reduction, viz: automated exposure control, ma/kV adjustment per patient size (including targeted exams where dose is matched to indication, i.e. head), or iterative reconstruction technique. FINDINGS: No midline shift, mass effect, intracranial hemorrhage, hydrocephalus, or extra-axial fluid collection is evident. There is an area of decreased density along the anterior horn of the right lateral ventricle. This is in the region of the lateral aspect of the corpus callosum. This area measures 8 mm and was not present on the previous exam and may be due to an old lacunar infarction. Multiple sclerosis plaques may also curve in the corpus callosum. Nonemergent MRI without and with contrast enhancement may provide further evaluation. The calvarium has an unremarkable appearance. No mastoid effusion. No sinus air-fluid level. IMPRESSION: 1. No acute intracranial findings. 2. Hypodensity anterior to the anterior horn of the right lateral ventricle in the region of the corpus callosum and could be due to an area of old lacunar infarction or demyelinating plaque. Nonemergent MRI without and with gadolinium enhancement may provide further evaluation. Dictated by: Reed Lo MD 08/16/2020 12:14 Reed Lo MD in [place] 08/16/2020 12:14
== END ==
PROVIDERS: PCP Emergency Medicine; Visit Provider Nurse Practitioner Family
DX: H53.8 Other visual disturbances (principal); J44.9 Chronic obstructive pulmonary disease, unspecified; M54.12 Radiculopathy, cervical region; R07.89 Other chest pain; R53.83 Other fatigue; Z72.0 Tobacco use
CPT/HCPCS: 70450

== ENCOUNTER 2020-08-20 17:39 | Emergency (ER) | payer MEDICARE, SELFPAY ==
[2020-08-20 17:41] VITALS: BP 106/67; PULSE 105; RESP 18; TEMP 36.9; O2SAT 98; BMI 17.9
--- NOTE | 2020-08-20 17:43 | HMH.EDHA ---
ED Disposition Clinical Impression: Acute bacterial sinusitis Headache Qualifiers: Headache type: unspecified Headache chronicity pattern: acute headache Intractability: not intractable Qualified Code(s): R51.9 - Headache, unspecified Disposition: Home, Self-Care Condition on Discharge: Good Instructions: DI for Sinus Headache, DI for Sinusitis Prescriptions: Sulfamethoxazole/Trimethoprim [Bactrim DS tablet] 1 each PO BID #14 tab Prescription Printed methylPREDNISolone [Medrol] 4 mg PO DIRECTED #21 pack Prescription Printed Referrals: Gama Gil MD [Primary Care Provider] - 3 days - Critical Care Critical Care Time: No Attestation: On , the high probability of a clinically significant, sudden or life threatening deterioration of the following system(s) required my full and direct attention, intervention and personal management. The time I documented below is in addition to time spent performing reported procedures but includes the following listed in this critical care notation. Medical Decision Making - Medical Records Medical records reviewed: Yes: I reviewed the patient's medical records. - Chris Inquiry Pt receiving controlled substance: No Vital Signs: 08/20/20 17:41 08/20/20 18:41 Temperature 98.5 F Temperature Source Oral Pulse Rate [Radial] 105 H 90 Respiratory Rate 18 Blood Pressure [Right Arm] 106/67 L 119/52 L Blood Pressure Mean [Right Arm] 80 74 Blood Pressure Position [Right Arm] Sitting Sitting 02 Sat by Pulse Oximetry 98 97 Oxygen Delivery Method Room Air Room Air - Lab Data Lab results reviewed: Yes: I reviewed the patient's lab results. Lab Results 08/20/20 18:25: WBC 14.8 H, RBC 5.92 H, Hgb 16.7 H, Hct 51.9 H, MCV 87.7, MCH 28.3, MCHC 32.2, RDW 14.7, Plt Count 415, MPV 7.5, Neut % (Auto) 72.4, Lymph % (Auto) 21.0, [place] % (Auto) 4.6, Eos % (Auto) 1.2, Baso % (Auto) 0.9, Neut # (Auto) 10.7 H, Lymph # (Auto) 3.1, [place] # (Auto) 0.7, Eos # (Auto) 0.2, Baso # (Auto) 0.1, ESR 4 08/20/20 18:25: Sodium 142, Potassium 3.6, Chloride 101, Carbon Dioxide 32 H, Anion Gap 12.6, BUN 17, Creatinine 0.70, Estimated Creat Clear 37, Estimated GFR 82, Est GFR ( Amer) 100, Glucose 150 H, Calcium 10.5 H, C-Reactive Protein 26.6 H Result diagrams: 08/20/20 18:25 08/20/20 18:25 Orders (Tests/Meds): ED MEDICATIONS Generic Name Dose Route Start Last Admin Trade Name Freq PRN Reason Stop Dose Admin Sodium Chloride 1,000 mls @ 999 mls/hr 08/20/20 18:00 08/20/20 18:11 Sod Chlor 0.9% 1000ml Bag IV 08/20/20 19:00 999 mls/hr .[id number] CORRINA Administration Discontinued Medications Generic Name Dose Route Start Last Admin Trade Name Freq PRN Reason Stop Dose Admin Dexamethasone Sodium Phosphate 10 mg 08/20/20 17:55 08/20/20 18:12 Dexamethasone 4mg/Ml 5ml Mdv IV 08/20/20 17:56 10 mg ONCE ONE Administration Diphenhydramine HCl 50 mg 08/20/20 17:56 08/20/20 18:12 Diphenhydramine 50mg/Ml Vial IV 08/20/20 17:57 50 mg ONCE ONE Administration Metoclopramide HCl 10 mg 08/20/20 17:56 08/20/20 18:11 Metoclopramide Hcl 10mg/2ml Vial IVP 08/20/20 17:57 10 mg ONCE ONE Administration ORDERS Category Date Time Status CT head/brain wo con Stat Cat Scan 08/20/20 17:54 Taken Covid-19 Nasal PCR ([facility]) Routine Lab 08/20/20 18:30 Received - CT Data CT Scan: Head Time Received: 19:14 Findings Narrative: No acute intracranial abnormality, left maxillary sinus disease Medical Decision Narrative: Patient's headache started around 10 to 10:30 AM Saturday morning and she had a CT scan of the head at 1130, within the 6-hour window to identify subarachnoid hemorrhage. CT head is of very low likelihood at this point. She has no signs of meningismus and is afebrile, low suspicion for meningitis/encephalitis. Sed rate within normal limits, unlikely temporal arteritis. She does have left maxillary sinus disease noted on the CT scan which is a
--- NOTE | 2020-08-20 17:54 | CT_ITS ---
PROCEDURE: CT HEAD/BRAIN WO CON Referring Doctor: Alistair Yanes Patient Age:70Y CLINICAL INDICATION: headache since Saturday. No history of migraines. Pain late mainly on the left side of head COMPARISON: CT HDWO CT HEAD W/O CONTRAST from 01/05/[address] HEAD/BRAIN WO CON from 08/16/2020 TECHNIQUE: No IV contrast. Standard axial images were obtained. All CT scans at the facility use one or more dose reduction, viz: automated exposure control, ma/kV adjustment per patient size (including targeted exams where dose is matched to indication, i.e. head), or iterative reconstruction technique. FINDINGS: No acute intracranial findings.. No definitive change since previous CT head studies from December [address] head from August 16 this year No territorial infarct No intracranial hemorrhage. No hydrocephalus.The ventricles and basal cisterns appear clear and satisfactory. Only question that the temporal horn on the left is slightly more evident but I believe this is merely positional. However there should be persistent headache or other findings you may want to consider postcontrast CT or MRI in follow-up. No mass or midline shift nor mass effect. No subdural or extra-axial fluid collection is evident. Posterior fossa unremarkable. Skull intact- calvarium unremarkable. Nomastoid effusions. Mastoid air cells are well developed and clear. Middle ear clear. IAC's symmetric. Paranasal sinuses: Moderate mucosal left maxillary sinus most evident posteriorly. The other paranasal sinuses unremarkable IMPRESSION: No discrete acute intracranial findings. Initially question left temporal horn is perhaps slightly more evident but suspect this is this is positional.-However there should be persistent headache or other findings you may want to consider a follow-up postcontrast CT or MRI . moderate mucosal thickening at the left maxillary sinus incidentally noted.. Dictated by: Braulio Herrera MD 08/20/2020 23:00 Braulio Herrera MD in [place] 08/20/2020 23:00
--- NOTE | 2020-08-20 18:00 | PC.NURSE ---
visual acuity lt 20/40 rt 20/40 -2 with out correction
[2020-08-20 18:41] VITALS: BP 119/52; PULSE 90; O2SAT 97
[2020-08-20 18:47] LABS: Basophils # 0.1 K/mm3 (0-0.2); Basophils % 0.9 % (0.1-2.0); Eosinophils # 0.2 K/mm3 (0.0-0.4); Eosinophils % 1.2 % (0.1-12.0); Hematocrit 51.9 % (37.0-47.0); Hemoglobin 16.7 g/dL (12.2-16.2); Lymphocytes # 3.1 K/mm3 (0.7-4.5); Mean Corpuscular HGB Conc 32.2 g/dL (31.8-35.4); Mean Corpuscular Hemoglobin 28.3 pg (27.0-31.2); Mean Corpuscular Volume 87.7 fl (81-99); Mean Platelet Volume 7.5 fl (7.4-10.4); Monocytes # 0.7 K/mm3 (0.1-1.0); Monocytes % 4.6 % (1.7-9.3); Neutrophils # 10.7 K/mm3 (1.8-7.8); Neutrophils % 72.4 % (37.0-80.0); Platelet Count 415 K/mm3 (142-424); Red Blood Count 5.92 M/mm3 (4.20-5.40); Red Cell Distribution Width 14.7 % (11.5-17.5); White Blood Count 14.8 K/mm3 (4.8-10.8)
[2020-08-20 18:49] LABS: Blood Urea Nitrogen 17 mg/dl (7-17); Calcium 10.5 mg/dl (8.4-10.2); Carbon Dioxide 32 mmol/L (22.0-30.0); Creatinine Clearance Estimated 37 mL/min (50-200); Estimated Glomerular Filt Rate 82 ml/min (>60); GFR (African American) 100 ML/MIN (>60); Glucose 150 mg/dl (74-100); Potassium 3.6 mmoL/L (3.5-5.1)
[2020-08-20 18:50] LABS: Anion Gap 12.6 mEq/L (5-15); Chloride 101 mmol/L (98-107); Sodium 142 mmol/L (136-145)
[2020-08-20 18:54] LABS: C-Reactive Protein 26.6 mg/L (0-4)
[2020-08-20 19:10] LABS: Erythrocyte Sedimentation Rate 4 mm/hr (0-30)
[2020-08-20 19:39] VITALS: BP 122/70; PULSE 92; RESP 16; TEMP 36.9; O2SAT 97
== END 2020-08-20 19:43 | disposition home or self-care (01) ==
PROVIDERS: Emergency Provider Emergency Medicine; PCP Emergency Medicine
DX: Z20.822 Contact with and (suspected) exposure to COVID-19 (principal); J01.90 Acute sinusitis, unspecified; I25.10 Atherosclerotic heart disease of native coronary artery without angina pectoris; F41.8 Other specified anxiety disorders; F17.210 Nicotine dependence, cigarettes, uncomplicated; Z79.899 Other long term (current) drug therapy
CPT/HCPCS: 70450; 80048; 85025; 85651; 86140; 96365; 96375; 99283; U0003

== ENCOUNTER → 2020-08-23 08:13 | Outpatient (CLI) | payer MEDICARE, SELFPAY ==
--- NOTE | 2020-08-23 08:33 | MR_ITS ---
PROCEDURE: MR HEAD/BRAIN WO/W CON CLINICAL INDICATION: cva, Left temporal headache, follow-up abnormal head CT COMPARISON: CT HDWO CT HEAD W/O CONTRAST from 01/05/[address] HEAD/BRAIN WO CON from 08/16/[address] HEAD/BRAIN WO CON from 08/20/2020 TECHNIQUE: Routine multiplanar multi echo sequences are performed without and with gadolinium enhancement. FINDINGS: There is fairly prominent restricted diffusion in the left occipital lobe posteriorly with some sparing of the cortex. Similar lobular areas of signal intensity noted in the medial aspect of the left temporal lobe and a small focus of restricted diffusion in the left thalamus. These areas show increased diffusion and decreased ADC signal consistent with areas of acute infarction. These areas also show slight increase in T2 signal and FLAIR signal and slight decrease in T1 signal with some mild edematous changes. No enhancement is evident. No midline shift. No obvious internal areas of hemorrhage. There are scattered periventricular and subcortical T2 white matter hyperintensities. The cerebellopontine angle, cerebellum, and brainstem have an unremarkable appearance. A small area of CSF signal intensity is present in the medial aspect of the right head of the caudate measuring 10 mm and could be due to cystic encephalomalacia changes from an old lacunar infarction. There is moderate mucosal thickening of the left maxillary sinus with an air-fluid level in left maxillary sinus. No mastoid effusion is apparent. 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 The infarction is not complete as there are areas of cortex in the left occipital lobe and medial aspect left temporal lobe which are not involved. No evidence of intracranial hemorrhage Dictated by: Reed Lo MD 08/23/2020 12:03 Reed Lo MD in [place] 08/23/2020 12:03
[2020-08-23 08:45] LABS: Blood Urea Nitrogen 18 mg/dl (7-17); Estimated Glomerular Filt Rate 71 ml/min (>60); GFR (African American) 86 ML/MIN (>60)
--- NOTE | 2020-08-23 13:30 | ECG_ITS ---
APPROVED REPORT Exam: Resting ECG HR:79 bpm ECG Measurements Heart Rate 79 AXES MO 178 P 56 QRSd 98 QRS 52 QT 386 T 66 QTc 442 Conclusion Normal sinus rhythm with sinus arrhythmia Normal ECG Electronically signed by : Romulo Flores, 08/24/2020 17:41:35
== END ==
PROVIDERS: PCP Emergency Medicine; Visit Provider Nurse Practitioner Family
DX: I63.9 Cerebral infarction, unspecified (principal)
CPT/HCPCS: 36415; 70553; 82565; 84520; 93005; A9576

== ENCOUNTER 2020-08-23 12:34 | Emergency (ER) | payer MEDICARE, SELFPAY ==
--- NOTE | 2020-08-23 12:38 | HMH.EDHA ---
ED Disposition Clinical Impression: CVA (cerebral vascular accident) Qualifiers: CVA mechanism: occlusion Precerebral and cerebral artery: posterior cerebral artery Laterality of affected vessel: left Qualified Code(s): I63.532 - Cerebral infarction due to unspecified occlusion or stenosis of left posterior cerebral artery Disposition: Home, Self-Care Condition on Discharge: Good Instructions: DI for Stroke-Ischemic Prescriptions: Clopidogrel Bisulfate [Plavix 75mg Tab] 75 mg PO DAILY #21 tab Transmission Status: Pending to [facility] Referrals: Gama Gil MD [Primary Care Provider] - 08/29/20 - Critical Care Critical Care Time: Yes Attestation: On , the high probability of a clinically significant, sudden or life threatening deterioration of the following system(s) required my full and direct attention, intervention and personal management. The time I documented below is in addition to time spent performing reported procedures but includes the following listed in this critical care notation. 45 Vital system(s) involved:: Circulatory Failure, Central Nervous System My critical care processes included: Assessment & monitoring of V/S, Initial and Re-exams, Data Review/Interpretation, Coordinating Care, Medication Orders and management, Documentation Medical Decision Making - Medical Records Medical records reviewed: Yes: I reviewed the patient's medical records. - Chris Inquiry Pt receiving controlled substance: No Vital Signs: 08/23/20 12:43 08/23/20 13:04 08/23/20 13:36 Temperature 98.4 F Temperature Source Oral Pulse Rate [Right Radial] 76 69 79 Respiratory Rate 16 Blood Pressure [Right Arm] 150/78 H 142/78 H 154/83 H Blood Pressure Mean [Right Arm] 102 99 106 Blood Pressure Source [Right Arm] Automatic Cuff Automatic Cuff Automatic Cuff Blood Pressure Position [Right Arm] Supine Sitting Sitting 02 Sat by Pulse Oximetry 97 97 95 Oxygen Delivery Method Room Air Room Air Room Air 08/23/20 15:03 Temperature Temperature Source Pulse Rate [Right Radial] 59 L Respiratory Rate Blood Pressure [Right Arm] 136/80 Blood Pressure Mean [Right Arm] 98 Blood Pressure Source [Right Arm] Automatic Cuff Blood Pressure Position [Right Arm] Sitting 02 Sat by Pulse Oximetry 96 Oxygen Delivery Method Room Air - Lab Data Lab results reviewed: Yes: I reviewed the patient's lab results. Lab Results 08/23/20 12:40: WBC 18.4 H, RBC 5.71 H, Hgb 16.1, Hct 50.7 H, MCV 88.9, MCH 28.2, MCHC 31.7 L, RDW 14.7, Plt Count 434 H, MPV 7.7, Neut % (Auto) 82.2 H, Lymph % (Auto) 11.7, Gillespie % (Auto) 5.4, Eos % (Auto) 0.4, Baso % (Auto) 0.3, Neut # (Auto) 15.1 H, Lymph # (Auto) 2.2, Gillespie # (Auto) 1.0, Eos # (Auto) 0.1, Baso # (Auto) 0.1, Total Counted 100, Neutrophils % (Manual) 69, Lymphocytes % (Manual) 26, Monocytes % (Manual) 5, Platelet Estimate Normal, RBC Morphology Normal 08/23/20 12:40: Sodium 141, Potassium 4.1, Chloride 105, Carbon Dioxide 30, Anion Gap 10.1, BUN 19 H, Creatinine 0.70, Estimated Creat Clear 37, Estimated GFR 82, Est GFR ( Amer) 100, Glucose 136 H, Calcium 10.3 H, Troponin I < 0.01 08/23/20 13:13: POC Glucose 156 H 08/23/20 13:30: Urine Color Yellow, Urine Appearance Clear, Urine pH 6.5, Ur Specific [place] 1.025, Urine Protein Negative, Urine Glucose (UA) Negative, Urine Ketones Negative, Urine Blood Trace-i, Urine Nitrate Negative, Urine Bilirubin Negative, Urine Urobilinogen 0.2, Ur Leukocyte Esterase Negative, Urine RBC 3-5, Urine WBC 3-5, Ur Squamous Epith Cells 5-10, Urine Bacteria 1+, Hyaline Casts 5-10 Result diagrams: 08/23/20 12:40 08/23/20 12:40 Orders (Tests/Meds): ED MEDICATIONS Discontinued Medications Generic Name Dose Route Start Last Admin Trade Name Freq PRN Reason Stop Dose Admin Iopamidol 100 ml 08/23/20 14:35 08/23/20 14:36 Iopamidol-370 (76%);100ml Bottle IV 08/23/20 14:36 100 ml ONCE ONE Administration Sodium Chloride 50 ml 0
[2020-08-23 12:43] VITALS: BP 150/78; PULSE 76; RESP 16; TEMP 36.9; O2SAT 97; BMI 17.9
--- NOTE | 2020-08-23 12:47 | XR_ITS ---
PROCEDURE: XR CHEST PORTABLE CLINICAL HISTORY: cva Stroke evaluation COMPARISON: CR CXR1 CHEST-PORTABLE from 09/22/2013 CR CXR1VP XR chest portable from 11/23/[address] CHEST W CON from 08/25/2019 CR XR CHEST PORTABLE from 07/20/2020 FINDINGS: The cardiomediastinal silhouette and pulmonary vascularity are within normal limits. Calcified granulomas present in the left perihilar region. COPD changes. No lobar consolidation or collapse. There is a hyperdensity in the left upper quadrant overlying the gastric air bubble which is of unknown clinical significance possibly due to an artifact. IMPRESSION: As above, no acute finding Dictated by: Reed Lo MD 08/23/2020 16:04 Reed Lo MD in [place] 08/23/2020 16:04
--- NOTE | 2020-08-23 12:47 | PC.NURSE ---
Calling Dr. Armendariz at this time
[2020-08-23 13:04] VITALS: BP 142/78; PULSE 69; O2SAT 97
--- NOTE | 2020-08-23 13:11 | PC.NURSE ---
calling [facility] at this time. dr castaneda has already spoken with dr chavarria
[2020-08-23 13:19] LABS: Chloride 105 mmol/L (98-107); Potassium 4.1 mmoL/L (3.5-5.1); Sodium 141 mmol/L (136-145)
[2020-08-23 13:20] LABS: POC Glucose,Bedside 156 (70-110)
[2020-08-23 13:21] LABS: Basophils # 0.1 K/mm3 (0-0.2); Basophils % 0.3 % (0.1-2.0); Eosinophils # 0.1 K/mm3 (0.0-0.4); Eosinophils % 0.4 % (0.1-12.0); Hematocrit 50.7 % (37.0-47.0); Hemoglobin 16.1 g/dL (12.2-16.2); Lymphocytes # 2.2 K/mm3 (0.7-4.5); Lymphocytes % 11.7 % (10-50); Mean Corpuscular HGB Conc 31.7 g/dL (31.8-35.4); Mean Corpuscular Hemoglobin 28.2 pg (27.0-31.2); Mean Corpuscular Volume 88.9 fl (81-99); Mean Platelet Volume 7.7 fl (7.4-10.4); Monocytes % 5.4 % (1.7-9.3); Neutrophils # 15.1 K/mm3 (1.8-7.8); Neutrophils % 82.2 % (37.0-80.0); Platelet Count 434 K/mm3 (142-424); Red Blood Count 5.71 M/mm3 (4.20-5.40); Red Cell Distribution Width 14.7 % (11.5-17.5); White Blood Count 18.4 K/mm3 (4.8-10.8)
[2020-08-23 13:22] LABS: Anion Gap 10.1 mEq/L (5-15); Blood Urea Nitrogen 19 mg/dl (7-17); Calcium 10.3 mg/dl (8.4-10.2); Carbon Dioxide 30 mmol/L (22.0-30.0); Creatinine Clearance Estimated 37 mL/min (50-200); Estimated Glomerular Filt Rate 82 ml/min (>60); GFR (African American) 100 ML/MIN (>60); Glucose 136 mg/dl (74-100)
--- NOTE | 2020-08-23 13:25 | CT_ITS ---
Procedure: CT ANGIO NECK CLINICAL HISTORY: stroke Left posterior cerebral artery stroke. Visual disturbance, left-sided weakness COMPARISON: CT CT CHEST W CON from 08/25/[address] ANGIO HEAD from 08/23/2020 TECHNIQUE: IV Contrast: 100ml Isovue 370 Axial images obtained with sagittal and coronal reformats. All CT scans at the facility use one or more dose reduction, viz: automated exposure control, ma/kV adjustment per patient size (including targeted exams where dose is matched to indication, i.e. head), or iterative reconstruction technique. FINDINGS: CTA NECK: Atheromatous changes are present involving the aortic arch with scattered areas of calcific plaque. No significant stenosis of the great vessels. Right common carotid: There is approximately 45 percent smooth segment stenosis involving the ostium of the right common carotid artery. Fibrocalcific plaque is present at the distal aspect of the right common carotid artery and at the proximal aspect of the right internal carotid artery with approximately 30 percent stenosis. No ulcerations evident. The right internal carotid artery cervical portion has an otherwise unremarkable appearance. Left common carotid: Calcific plaque is present at the ostium with approximately 40 percent stenosis. Scattered minimal fibrocalcific plaque of the distal common carotid with 20 percent or less stenosis. The cervical portion of the left internal carotid has an unremarkable appearance. There is moderate tortuosity of the left ICA. The left vertebral has an unremarkable appearance and is the dominant vertebral artery. Right vertebral artery is small. No stenosis or dissection evident. CTA HEAD: Right internal carotid: There are atheromatous changes involving the intracranial portion of the right ICA within the cavernous portion causing luminal irregularity but no significant stenosis. Left internal carotid: Atheromatous changes involve the cavernous portion of the left ICA without significant stenosis. There is a PCOM aneurysm on the left. The aneurysm points medially and posteriorly and measures 3.5 x 3 mm. The [id number] is otherwise unremarkable. The anterior cerebral arteries and middle cerebral arteries appear unremarkable. Basilar artery has an unremarkable appearance. There is occlusion of the P2 segment of the left posterior cerebral artery Paraseptal emphysematous changes are present in the lung apices with biapical scarring. Centrilobular emphysematous changes are also present. The right lobe of the thyroid gland is enlarged with a complex nodule measuring 2.6 cm. This is probably unchanged. 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 Occlusion of the left P2 segment of the posterior cerebral artery. Dictated by: Reed Lo MD 08/23/2020 15:42 Reed Lo MD in [place] 08/23/2020 15:42
[2020-08-23 13:30] LABS: MANUAL DIFFERENTIAL MANUAL DIFFERENTIAL (MANUAL DIFF)
--- NOTE | 2020-08-23 13:33 | PC.NURSE ---
pt taken to restroom for Urine sample
--- NOTE | 2020-08-23 13:33 | PC.NURSE ---
Pt up to restroom.
[2020-08-23 13:36] VITALS: BP 154/83; PULSE 79; O2SAT 95
[2020-08-23 13:42] LABS: Troponin I < 0.01 ng/ml (0.00-0.034)
--- NOTE | 2020-08-23 13:53 | CT_ITS ---
PROCEDURE: CT HEAD/BRAIN WO CON CLINICAL INDICATION: stroke Stroke follow-up COMPARISON: CT CT HEAD/BRAIN WO CON from 08/20/2020 MR MR HEAD/BRAIN WO/W CON from 08/23/2020 TECHNIQUE: Axial images obtained. All CT scans at the facility use one or more dose reduction, viz: automated exposure control, ma/kV adjustment per patient size (including targeted exams where dose is matched to indication, i.e. head), or iterative reconstruction technique. FINDINGS: There is been interval development of low-density changes in the left occipital lobe consistent with infarction. No intracranial hemorrhage apparent. No midline shift. Low-density changes noted in the left temporal lobe also consistent with an area of infarction. No midline shift. No hydrocephalus Mucosal thickening involves the left maxillary sinus with an air-fluid level left maxillary sinus. IMPRESSION: Interval development of low-density changes in the left occipital lobe and medial aspect of the left temporal lobe consistent with acute/subacute infarction without midline shift or intracranial hemorrhage. Dictated by: Reed Lo MD 08/23/2020 14:59 Reed Lo MD in [facility] 08/23/2020 14:59
[2020-08-23 14:17] LABS: Lymphocytes % 26 % (10-50); Monocytes % 5 % (2-9); Neutrophils % 69 % (42-76); Platelet Estimate Normal; RBC Morphology Normal; Total Cells Counted 100
[2020-08-23 15:03] VITALS: BP 136/80; PULSE 59; O2SAT 96
[2020-08-23 15:04] LABS: Microscopic, Urine URINE MICROSCOPIC (MICROSCOPIC)
[2020-08-23 15:07] LABS: Appearance,Urine CLEAR (Clear); Bilirubin,Urine Negative (Negative); Blood, Urine TRACE-I (Negative); Color,Urine YELLOW (Yellow); Glucose,Urine (UA) Negative (Negative); Ketones,Urine Negative (Negative); Leukocyte Esterase,Urine Negative (Negative); Nitrate,Urine Negative (Negative); PH,Urine 6.5 (5.0-8.5); Protein,Urine Negative (Negative); Specific Gravity, Urine 1.025 (1.005-1.030); Urobilinogen,Urine 0.2 EU/dl (0.2)
[2020-08-23 15:18] LABS: Bacteria,Urine 1+ /lpf
--- NOTE | 2020-08-23 15:51 | PC.NURSE ---
speaking with Dr. Gil
[2020-08-23 16:01] VITALS: BP 132/76; PULSE 76; RESP 16; TEMP 36.6; O2SAT 98
== END 2020-08-23 16:02 | disposition home or self-care (01) ==
PROVIDERS: Emergency Provider Emergency Medicine; PCP Emergency Medicine
DX: I63.532 Cerebral infarction due to unspecified occlusion or stenosis of left posterior cerebral artery (principal); G44.89 Other headache syndrome; H53.8 Other visual disturbances; Z86.73 Personal history of transient ischemic attack (TIA), and cerebral infarction without residual deficits; F41.9 Anxiety disorder, unspecified; F32.9 Major depressive disorder, single episode, unspecified; Z79.82 Long term (current) use of aspirin; Z79.899 Other long term (current) drug therapy; Z88.0 Allergy status to penicillin; Z88.8 Allergy status to other drugs, medicaments and biological substances; Z72.0 Tobacco use
CPT/HCPCS: 36415; 70450; 70496; 70498; 70553; 71045; 80048; 81001; 82565; 82962; 84484; 84520; 85007; 85025; 93005; 99283; A9576; Q9967

== ENCOUNTER → 2020-08-29 13:11 | Outpatient (CLI) | payer MEDICARE, SELFPAY ==
--- NOTE | 2020-08-29 13:11 | CT_ITS ---
PROCEDURE: CT LUNG SCREENING CLINICAL INDICATION: Lung cancer screening Current smoker 30 pack year smoking history COMPARISON: CT CHWWO CT CHEST W/WO CONTRAST from 04/26/[address] CHEST W CON from 08/25/2019 TECHNIQUE: The exam was performed on a [employer] Light Speed [address] scanner using 2.90 mGy CTDI. A low dose helical CT CHEST was performed on a multi-detector scanner. All CT scans at the facility use one or more dose reduction, viz: automated exposure control, ma/kV adjustment per patient size (including targeted exams where dose is matched to indication, i.e. head), or iterative reconstruction technique. The LDCT was performed in a facility that meets the criteria for the screening program. Data regarding this exam was submitted to ACR which is an approved registry. The order for this exam indicates that it came as a result of a lung cancer screening counseling shard decision-making visit that included all the elements required of such a visit including smoking cessation. The radiologist interpreting this exam meets the CMS criteria for the LDCT lung cancer screening program. The exam is reported using the Lung-RADS classification scale and reported to the ACR registry. NOTE: This study was performed for the specific purposes of lung cancer screening and is not an alternative to diagnostic chest CT. RADIATION DOSE: CTDI vol(CT dose Index-volume) = 2.90mG DLP (Dose Length Product) = 107.86 mGcm FINDINGS: COPD changes with paraseptal and centrilobular emphysema. There is scattered areas of scarring. Biapical scarring is noted right greater than left similar to the previous exam. No suspicious nodules evident. OTHER FINDINGS: Coronary artery calcification the. Lobulated 3.4 cm left renal cyst. Heterogeneous 2 cm right thyroid nodule unchanged IMPRESSION: Lung-RADS Category 2 Benign Appearance or Behavior Follow-up: Continue annual screening with LDCT in 12 months Dictated by: Reed Lo MD 09/04/2020 12:00 Reed Lo MD in [facility] 09/04/2020 12:00
== END ==
PROVIDERS: PCP Emergency Medicine; Visit Provider Internal Medicine Pulmonary Disease
DX: Z87.891 Personal history of nicotine dependence (principal); Z12.2 Encounter for screening for malignant neoplasm of respiratory organs
CPT/HCPCS: 71271

== ENCOUNTER → 2020-08-30 11:59 | Outpatient (CLI) | payer MEDICARE, SELFPAY | PROVIDERS: PCP Emergency Medicine; Visit Provider Nurse Practitioner Family | DX: H53.8 Other visual disturbances (principal); I48.0 Paroxysmal atrial fibrillation; I63.532 Cerebral infarction due to unspecified occlusion or stenosis of left posterior cerebral artery; I63.9 Cerebral infarction, unspecified; J43.9 Emphysema, unspecified; R07.89 Other chest pain; R51.9 Headache, unspecified; Z72.0 Tobacco use | CPT/HCPCS: 93270 ==

== ENCOUNTER → 2020-09-09 09:15 | Outpatient (CLI) | payer MEDICARE, SELFPAY ==
--- NOTE | 2020-09-09 09:16 | CA_ITS ---
APPROVED REPORT Letterer: Darcy Aguillon RVT Laterality: Bilateral Study Quality: Good Indications: CVA Risk Factors Smoking Doppler Spectral Velocity Analysis ECA (R) 67.40/8.60 cm/s ECA (L) 123.00/10.70 cm/s dICA (R) 116.60/38.50 cm/s dICA (L) 71.60/24.60 cm/s Layla (R) 92.00/34.20 cm/s Layla (L) 121.90/38.50 cm/s pICA (R) 78.10/26.70 cm/s pICA (L) 121.90/31.00 cm/s dCCA (R) 55.60/11.80 cm/s dCCA (L) 92.00/18.20 cm/s pCCA (R) 88.80/18.20 cm/s pCCA (L) 82.30/12.80 cm/s Vert (R) 58.80/10.70 cm/s Vert (L) 53.10/13.70 cm/s ICA/CCA 2.10 ICA/CCA 1.33 Findings Study suggests less than 50% stenosis of the right internal cartoid artery. Study suggests less than 50% stenosis of the left internal cartoid artery. Antegrade flow seen bilateral vertebral arteries. Conclusion Study suggests less than 50% stenosis of the right internal cartoid artery. Study suggests less than 50% stenosis of the left internal cartoid artery. Antegrade flow seen bilateral vertebral arteries. Electronically signed by : Tasneem Rodriguez MD 09/09/2020 19:41:11
--- NOTE | 2020-09-09 09:16 | CA_ITS ---
APPROVED REPORT EXAM: Comprehensive 2D, Doppler, and color-flow Echocardiogram Control And Recovery Combat Rescue: Kerry Weston RT(R) Ht: 5 ft 1 in Wt: 99lbs BSA: 1.40 BP: 100/45 mmHg Indications: SOA, cryptogenic stroke, atypical CP, smoker, COPD, headache 2D Dimensions LVOT 1.84 cm (M/F) 1.5-2.5 M-Mode Dimensions RVDd 2.02 cm (0.9-2.6) LA Diam 2.23 cm (1.9-4.0) LVDd 3.77 cm (3.5-5.7) Ao Diam 2.67 cm (2.0-3.7) LVDs 3.05 cm (3.5-5.7) IVSd 0.84 cm (0.6-1.1) PWd 0.87 cm (0.6-1.1) EF (Teich) 40.10% FS 19.10% EDV (Teich) 60.80 mL ESV (Teich) 36.40 mL LV Diastology E Decel Time 200.00 (160-240 msec) E/A Ratio 0.8 Mitral Valve MV E Max Darnell. 58.00 (40-130 cm/s) MV A Velocity 77.00 (40-130 cm/s) E/A Ratio 0.76 MV Decel. Time 200.00 (160-240 ms) MV PHT 59.00 ms Tricuspid Valve TR P. Velocity 221.00 cm/s RAP Estimate 10.00 mmHg RVSP 29.50 mmHg Left Ventricle Left atrium is mildly enlarged, left ventricle is normal size, mild concentric left ventricular hypertrophy, visually estimated ejection fraction 55% with no regional wall motion abnormality, Doppler evidence of impaired LV relaxation seen, there is no tissue Doppler performed. Right Ventricle Right atrium and right ventricular qualitatively mildly enlarged with normal contractility. Aortic Valve Aortic valve is minimally thickened and fibrosed, there is no aortic stenosis or aortic insufficiency. Mitral Valve Mitral valve is minimally thickened, there is mild mitral regurgitation. Tricuspid Valve Tricuspid valve grossly normal, there is mild tricuspid regurgitation, calculated right ventricular systolic pressure is within normal range. Pulmonic Valve Pulmonic valve is poorly visualized. Great Vessels Aortic root is normal size. Pericardium No significant pericardial effusion noted. Conclusion 1. Mild biatrial enlargement, normal left ventricular size, mild concentric left ventricular hypertrophy, visually estimated ejection fraction 55% with no regional wall motion abnormality. Doppler evidence of impaired LV relaxation seen, there is no tissue Doppler performed. 2. Mild mitral and tricuspid regurgitation, calculated right ventricular systolic pressure is within normal range. 3. No significant pericardial effusion noted. Electronically signed by : Alex Barroso, 09/09/2020 10:56:35
== END ==
PROVIDERS: PCP Emergency Medicine; Visit Provider Nurse Practitioner Family
DX: H53.8 Other visual disturbances (principal); I63.532 Cerebral infarction due to unspecified occlusion or stenosis of left posterior cerebral artery; J43.9 Emphysema, unspecified; R07.89 Other chest pain; R42 Dizziness and giddiness; R51.9 Headache, unspecified; Z72.0 Tobacco use
CPT/HCPCS: 93306; 93880

== ENCOUNTER → 2020-09-15 09:43 | Outpatient (CLI) | payer MEDICARE, SELFPAY ==
[2020-09-15 09:49] LABS: MANUAL DIFFERENTIAL MANUAL DIFFERENTIAL (MANUAL DIFF)
[2020-09-15 10:21] LABS: Basophils # 0.1 K/mm3 (0-0.2); Basophils % 1.1 % (0.1-2.0); Eosinophils # 0.3 K/mm3 (0.0-0.4); Eosinophils % 2.2 % (0.1-12.0); Hematocrit 46.4 % (37.0-47.0); Hemoglobin 14.6 g/dL (12.2-16.2); Lymphocytes # 2.4 K/mm3 (0.7-4.5); Lymphocytes % 20.7 % (10-50); Mean Corpuscular HGB Conc 31.6 g/dL (31.8-35.4); Mean Corpuscular Hemoglobin 27.9 pg (27.0-31.2); Mean Corpuscular Volume 88.5 fl (81-99); Mean Platelet Volume 7.3 fl (7.4-10.4); Monocytes # 0.4 K/mm3 (0.1-1.0); Monocytes % 3.6 % (1.7-9.3); Neutrophils # 8.3 K/mm3 (1.8-7.8); Neutrophils % 72.3 % (37.0-80.0); Platelet Count 479 K/mm3 (142-424); Red Blood Count 5.24 M/mm3 (4.20-5.40); Red Cell Distribution Width 14.2 % (11.5-17.5); White Blood Count 11.4 K/mm3 (4.8-10.8)
[2020-09-15 10:56] LABS: Erythrocyte Sedimentation Rate 22 mm/hr (0-30)
[2020-09-15 11:10] LABS: Chloride 109 mmol/L (98-107)
[2020-09-15 11:11] LABS: Potassium 4.6 mmoL/L (3.5-5.1); Sodium 143 mmol/L (136-145)
[2020-09-15 11:13] LABS: Alanine Aminotransferase 16 U/L (12-78); Alkaline Phosphatase 110 U/L (38-126); Anion Gap 11.6 mEq/L (5-15); Aspartate Amino Transferase 31 U/L (14-36); Bilirubin,Total 0.5 mg/dl (0.2-1.3); Blood Urea Nitrogen 12 mg/dl (7-17); Carbon Dioxide 27 mmol/L (22.0-30.0); Estimated Glomerular Filt Rate 99 ml/min (>60); GFR (African American) 119 ML/MIN (>60)
[2020-09-15 11:14] LABS: Albumin Level 4.6 g/dl (3.5-5.0); Albumin/Globulin Ratio 1.4 (1.1-1.8); Calcium 10.8 mg/dl (8.4-10.2); Globulin 3.4 g/dL (1.3-3.2); Glucose 94 mg/dl (74-100)
[2020-09-15 11:19] LABS: C-Reactive Protein 6.6 mg/L (0-4)
[2020-09-15 11:45] LABS: Thyroid Stimulating Hormone 0.02 uIU/mL (0.465-4.68)
[2020-09-15 12:50] LABS: Lymphocytes % 19 % (10-50); Monocytes % 1 % (2-9); Neutrophils % 76 % (42-76); Total Cells Counted 100
[2020-09-15 12:52] LABS: Platelet Estimate Moderate Increase; RBC Morphology Normal
[2020-09-16 18:40] LABS: Rapid Plasma Reagin Ab Titer Non Reactive (NonRea<1:1)
[2020-09-24 22:17] LABS: Antinuclear Antibodies (ANA) NEGATIVE
== END ==
PROVIDERS: Visit Provider Nurse Practitioner Family
DX: H53.40 Unspecified visual field defects (principal); I63.9 Cerebral infarction, unspecified; I67.1 Cerebral aneurysm, nonruptured; R07.89 Other chest pain; R51.9 Headache, unspecified; R63.4 Abnormal weight loss; R79.82 Elevated C-reactive protein (CRP); Z68.1 Body mass index [BMI] 19.9 or less, adult; Z72.0 Tobacco use
CPT/HCPCS: 36415; 80053; 84443; 85007; 85014; 85018; 85048; 85049; 85651; 86038; 86140; 86225; 86235; 86592

== ENCOUNTER → 2020-09-21 14:05 | Outpatient (CLI) | payer MEDICARE, SELFPAY | PROVIDERS: PCP Emergency Medicine; Visit Provider Nurse Practitioner Family | DX: H53.40 Unspecified visual field defects (principal); I63.9 Cerebral infarction, unspecified; I67.1 Cerebral aneurysm, nonruptured; R07.89 Other chest pain; R51.9 Headache, unspecified; R63.4 Abnormal weight loss; R79.82 Elevated C-reactive protein (CRP); Z68.1 Body mass index [BMI] 19.9 or less, adult; Z72.0 Tobacco use | CPT/HCPCS: 94762 ==

== ENCOUNTER → 2020-10-25 14:53 | Outpatient (CLI) | payer MEDICARE, SELFPAY ==
[2020-10-25 15:25] LABS: T4 (Thyroxine) 5.7 ug/dl (5.53-11.0)
[2020-10-25 15:38] LABS: Thyroid Stimulating Hormone 0.25 uIU/mL (0.465-4.68)
[2020-10-27 14:03] LABS: Triiodothyronine (T3) Total 128 ng/dL (71-180)
== END ==
PROVIDERS: Visit Provider Emergency Medicine
DX: E07.9 Disorder of thyroid, unspecified (principal)
CPT/HCPCS: 84436; 84443; 84480

== ENCOUNTER → 2020-11-17 16:58 | Outpatient (CLI) | payer MEDICARE, SELFPAY ==
[2020-11-17 17:47] LABS: Alanine Aminotransferase 20 U/L (12-78); Albumin Level 4.8 g/dl (3.5-5.0); Alkaline Phosphatase 114 U/L (38-126); Aspartate Amino Transferase 29 U/L (14-36); Bilirubin,Unconjugated 1.1 mg/dL (0.0-1.1); Chol/HDL Ratio 3.2 (1-3.5); Cholesterol 142 mg/dl (140-200); HDL Cholesterol 45 mg/dl (40-60); Total Protein,Serum 7.6 g/dl (6.3-8.2); Triglycerides 123 mg/dl (30-150); VLDL Cholesterol 25 mg/dL (0-40)
[2020-11-17 18:13] LABS: Direct LDL Cholesterol 75.82 mg/dL (100-129)
[2020-11-19 10:32] LABS: Prolactin 4.6 ng/mL (4.8-23.3)
[2020-11-20 06:33] LABS: Thyroid Peroxidase Antibodies <9 IU/mL (0-34)
[2020-11-21 23:41] LABS: Thyroid Stimulating Immunoglob <0.10 IU/L (0.00-0.55)
== END ==
PROVIDERS: Physician Assistant; Visit Provider Emergency Medicine
DX: E78.5 Hyperlipidemia, unspecified (principal); I10 Essential (primary) hypertension; I25.10 Atherosclerotic heart disease of native coronary artery without angina pectoris; I65.29 Occlusion and stenosis of unspecified carotid artery; J43.9 Emphysema, unspecified; Z72.0 Tobacco use; E07.9 Disorder of thyroid, unspecified
CPT/HCPCS: 36415; 80061; 80076; 84146; 84445; 86376

== ENCOUNTER → 2020-12-06 14:23 | Outpatient (CLI) | payer MEDICARE, SELFPAY ==
--- NOTE | 2020-12-06 14:23 | US_ITS ---
PROCEDURE: US THYROID CLINICAL INDICATION: hyperactive thyroid COMPARISON: No exams were available for comparison FINDINGS: Right lobe: 4.5 x 1.4 x 2.7 cm. Left lobe: 3.9 x 1.2 x 1.6 cm. Isthmus: Unremarkable Additional findings: In the mid to lower aspect of the right lobe there is a 2.7 x 1.3 cm mixed solid and cystic nodule which is well-circumscribed wider than tall no obvious internal calcifications. TR level 2 may be followed. A 4 mm slightly hypoechoic well-circumscribed nodules present in the mid polar region on the left. There is a questionable 6 x 8 mm isoechoic area in the lower pole on the left only well demonstrated in the transverse plane not well delineated in the sagittal plane IMPRESSION: 1. Dominant nodule on the right appears benign. 2. Hypoechoic and isoechoic nodule on the left probably benign. Suggest 6 month follow-up. Dictated by: Reed Lo MD 12/06/2020 15:05 Reed Lo MD in [place] 12/06/2020 15:05
== END ==
PROVIDERS: PCP Emergency Medicine; Visit Provider Nurse Practitioner Family
DX: F41.9 Anxiety disorder, unspecified (principal); R63.4 Abnormal weight loss; R79.89 Other specified abnormal findings of blood chemistry
CPT/HCPCS: 76536

== ENCOUNTER → 2020-12-20 09:41 | Outpatient (POV) | payer MEDICARE, SELFPAY | PROVIDERS: Visit Provider Otolaryngology | DX: Z00.00 Encounter for general adult medical examination without abnormal findings (principal) ==

== ENCOUNTER → 2020-12-21 13:40 | Outpatient (CLI) | payer MEDICARE, SELFPAY | PROVIDERS: Visit Provider Nurse Practitioner Family | DX: Z01.818 Encounter for other preprocedural examination (principal); Z20.822 Contact with and (suspected) exposure to COVID-19 | CPT/HCPCS: U0003 ==

== ENCOUNTER → 2020-12-22 20:16 | Outpatient (CLI) | payer MEDICARE, SELFPAY | PROVIDERS: PCP Emergency Medicine; Visit Provider Specialist | DX: G47.33 Obstructive sleep apnea (adult) (pediatric) (principal); R09.02 Hypoxemia | CPT/HCPCS: 95810 ==

== ENCOUNTER → 2021-01-24 18:21 | Outpatient (CLI) | payer MEDICARE, SELFPAY ==
[2021-01-24 22:03] LABS: Free T4 (Free Thyroxine) 0.89 ng/dl (0.78-2.19)
[2021-01-26 09:39] LABS: Triiodothyronine (T3) Total 129 ng/dL (71-180)
== END ==
PROVIDERS: Visit Provider Emergency Medicine
DX: E07.9 Disorder of thyroid, unspecified (principal)
CPT/HCPCS: 84439; 84443; 84480

== ENCOUNTER → 2021-01-30 12:28 | Outpatient (CLI) | payer MEDICARE, SELFPAY | PROVIDERS: PCP Emergency Medicine; Visit Provider Nurse Practitioner Family | DX: G47.34 Idiopathic sleep related nonobstructive alveolar hypoventilation (principal); J44.9 Chronic obstructive pulmonary disease, unspecified; Z72.0 Tobacco use | CPT/HCPCS: 94762 ==

== ENCOUNTER → 2021-02-08 06:29 | Outpatient (CLI) | payer MEDICARE, SELFPAY ==
--- NOTE | 2021-02-08 06:36 | NM_ITS ---
APPROVED REPORT Exam: Nuclear Stress Test Indication: chest pain..short of breath..fatigue Patient Location: Outpatient Stress Tech: Mayte AdamsNj AR Tech:FARZANA Kapoor RT(R)(N) Ht: 5 ft 3 in Wt: 98 lbs Bra Size: 34b HR: 57 bpm BP: 135/55 mmHg BSA: 1.43 m2 BMI: 17.3 Procedure: Patient received a 0.4 mg of intravenous Lexiscan, resting heart rate 57 bpm, resting blood pressure 135/55 mmHg, with Lexiscan maximum heart rate achived was 94 bpm which is Less than 85 % of the maximum predicted heart rate and blood pressure was 136/62 mmHg. With Lexiscan, patient denied any complaint of chest pain. Electrocardiogram Resting electrocardiogram shows sinus rhythm, with Lexiscan there is less than 1.[address] segment depression noted from the baseline EKG. The EKG portion of the Lexiscan is nondiagnostic. Cardiac Stress and Resting SPECT Images: Cardiac Stress and Resting SPECT images were obtained using technetium 99m Myoview 31.5 mCi stress and 10.11 mCi at rest. Gated SPECT for analysis of segmental wall motion and calculation of the ejection fraction also done. Prone images were also obtained. Cardiac stress and resting SPECT images show a mild fixed defect in the anterior apical wall with normal contractility on the gated SPECT is likely secondary to soft tissue attenuation, no reversible ischemia seen, computer derived ejection fraction is 51% with no regional wall motion abnormality, right ventricle is normal size and contractility. Conclusion: 1. The EKG portion of the Lexiscan is nondiagnostic. 2. No scintigraphic evidence of reversible ischemia seen, computer derived ejection fraction is 51% with no regional wall motion abnormality, right ventricle is normal size and contractility. 3. Likely normal Lexiscan Myoview study. Electronically signed by : Alex Barroso, 02/09/2021 10:25:04
--- NOTE | 2021-02-08 06:36 | CA_ITS ---
APPROVED REPORT Exam: Pharmacologic Technologist: theresa ortiz, Ht: 5 ft 1 in Wt: 98 lbs BSA: 1.40 m2 Indications: Angina Medical History Medications: Metoprolol,,,,, Asa,,,,, Lipitor,,,,, Albuterol,,,,, AmiTRIPTYLINE,,,,, ANora,,,,, AmOvig,,,,, Allergies: Penicillin, Parafon forte Cardiac Risk Factors: HTN, FHX of CAD, Smoking Stress Test Details Test: LEXISCAN HR Resting HR: 67 bpm Max Heart Rate (APMHR): 149.190370 bpm Max HR Achieved: 97 bpm Target HR (85% APMHR): 126.919611 bpm % of APMHR: 65.10 Recovery HR: 89 bpm BP Resting BP: 135/55 mmHg Max BP: 141/63 mmHg Recovery BP: 130.0/58.0 mmHg ECG Resting ECG: NSR, normal Clinical Exercise duration: 04:03 min Highest Stage Achieved: Exercise capacity: 1.0 METs Stress ECG Conclusion Aminophylline 75mg slowly given via IV. SOA, mild stomach discomfort, headache, and malaise during peak infusion that resolved during recovery. No chest pain. No arrhythmia or ectopy. Ns ST changes inferiorly. Unremarkable Lexiscan stress. Images reported seperately. Test Summary REST 04:56 . . 67 . 135/ 55 . . Stage 1 01:00 . . 89 . . . . Stage 2 01:00 . . 95 . 141/ 63 . . Stage 3 01:00 . . 90 . 132/ 56 . . Stage 4 01:00 . . 93 . 136/ 62 . . Stage 4 01:03 . . 93 . 136/ 62 . Stop exercise at 04:03 RECOVERY 01:00 . . 89 . 130/ 58 . . RECOVERY 02:00 . . 85 . 130/ 58 . . RECOVERY 03:00 . . 89 . 125/ 62 . . RECOVERY 04:00 . . 85 . 132/ 54 . . RECOVERY 05:00 . . 79 . 132/ 54 . . RECOVERY 06:00 . . 69 . 120/ 64 . . RECOVERY 07:00 . . 70 . 120/ 64 . . RECOVERY 08:00 . . 65 . 137/ 56 . . RECOVERY 09:00 . . 0 . 137/ 56 . . RECOVERY 09:10 . . 0 . 137/ 56 . . Electronically signed by : Alex Barroso, 02/09/2021 10:15:01
== END ==
PROVIDERS: PCP Emergency Medicine; Visit Provider Urology
DX: E78.2 Mixed hyperlipidemia (principal); I10 Essential (primary) hypertension; I65.29 Occlusion and stenosis of unspecified carotid artery; Z72.0 Tobacco use; I20.8 Other forms of angina pectoris
CPT/HCPCS: 78452; 93017; A9502; J0280; J2785

== ENCOUNTER → 2021-05-25 12:41 | Outpatient (CLI) | payer MEDICARE, SELFPAY ==
--- NOTE | 2021-05-25 12:42 | US_ITS ---
PROCEDURE: US THYROID CLINICAL INDICATION: abnormal 6 month follow up COMPARISON: CT CHWWO CT CHEST W/WO CONTRAST from 04/26/2017 US US THYROID from 12/06/2020 FINDINGS: Right lobe: 4.6 x 1.3 x 2.5 cm. There is a mixed cystic and solid nodule in the right lobe mid to lower pole measuring 2.5 x 1.3 cm not significantly changed. Left lobe: 4.1 x 1.1 x 1.3 cm. A 4 x 3 mm hypoechoic nodules present in the mid aspect of the left lobe unchanged. There is a 5 mm area of heterogeneous echogenicity in the upper pole nonspecific. Heterogeneous echogenicity also noted in the lower pole Isthmus: Unremarkable Additional findings: IMPRESSION: No change in the mixed cystic and solid nodule of the right lobe of the thyroid gland with other smaller nodules is present bilaterally. Annual follow-up suggested. Dictated by: Reed Lo MD 05/25/2021 17:28 Reed Lo MD in [facility] 05/25/2021 17:28
== END ==
PROVIDERS: PCP Emergency Medicine; Visit Provider Specialist
DX: I63.9 Cerebral infarction, unspecified (principal); J44.9 Chronic obstructive pulmonary disease, unspecified; R51.9 Headache, unspecified; Z72.0 Tobacco use
CPT/HCPCS: 76536

== ENCOUNTER → 2021-07-07 08:55 | Outpatient (CLI) | payer MEDICARE, SELFPAY | PROVIDERS: Visit Provider Emergency Medicine | DX: Z20.822 Contact with and (suspected) exposure to COVID-19 (principal) | CPT/HCPCS: C9803; U0003; U0005 ==

== ENCOUNTER → 2021-07-17 08:38 | Outpatient (CLI) | payer MEDICARE, SELFPAY ==
--- NOTE | 2021-07-17 08:38 | FL_ITS ---
PROCEDURE: FL BARIUM SWALLOW CLINICAL INDICATION: dysphagia COMPARISON: CT CT LUNG SCREENING from 08/29/2020 US US THYROID from 05/25/2021 TECHNIQUE: In the upright position the patient was observed to swallow barium in both the AP and lateral view. The cervical esophagus was examined under fluoroscopy with images obtained. The patient was then placed prone in the right anterior oblique position and was observed to swallow barium with Valsalva technique . FLUOROSCOPY TIME: 1.05 minutes FINDINGS: There was no evidence of aspiration. There was normal peristalsis. No filling defects or mucosal abnormalities. No masses or strictures. Mildly prominent anterior osteophytes are present at C4, C5, C6, and C7 causing indentation upon the posterior aspect of the esophagus. No hiatal hernia IMPRESSION: Posterior indentation upon the esophagus by mildly prominent cervical osteophytes otherwise negative Dictated by: Reed Lo MD 07/18/2021 12:19 Reed Lo MD in [facility] 07/18/2021 12:19
== END ==
PROVIDERS: PCP Emergency Medicine; Visit Provider Otolaryngology
DX: R13.10 Dysphagia, unspecified (principal)
CPT/HCPCS: 74220

== ENCOUNTER 2021-07-19 07:08 | Emergency (ER) | payer MEDICARE, MEDICAID, SELFPAY ==
[2021-07-19 07:09] VITALS: BP 131/62; PULSE 63; RESP 16; TEMP 36.7; O2SAT 99; BMI 18.8
--- NOTE | 2021-07-19 07:18 | CT_ITS ---
PROCEDURE INFORMATION: Exam: CT Head Without Contrast Exam date and time: 07/19/2021 7:18 AM Age: 71 years old Clinical indication: Injury or trauma; Fall; Abrasion; Eye; Left; Additional info: Fall, hit head TECHNIQUE: Imaging protocol: Computed tomography of the head without contrast. Radiation optimization: All CT scans at this facility use at least one of these dose optimization techniques: automated exposure control; mA and/or kV adjustment per patient size (includes targeted exams where dose is matched to clinical indication); or iterative reconstruction. COMPARISON: CT HEAD/BRAIN WO CON 08/23/2020 2:09 PM FINDINGS: Brain: Normal. No hemorrhage. Unremarkable white matter. No mass effect. Cerebral ventricles: No ventriculomegaly. Paranasal sinuses: Visualized sinuses are unremarkable. No fluid levels. Mastoid air cells: Visualized mastoid air cells are well aerated. Bones/joints: Unremarkable. No acute fracture. Soft tissues: There is soft tissue swelling anterior to the left orbit. IMPRESSION: No acute intracranial abnormality.
--- NOTE | 2021-07-19 07:18 | CT_ITS ---
PROCEDURE INFORMATION: Exam: CT Maxillofacial Without Contrast Exam date and time: 07/19/2021 7:18 AM Age: 71 years old Clinical indication: Injury or trauma; Fall; Swelling; Eyelid; Upper left; Additional info: Fall, hit head TECHNIQUE: Imaging protocol: Computed tomography images of the face without contrast. Radiation optimization: All CT scans at this facility use at least one of these dose optimization techniques: automated exposure control; mA and/or kV adjustment per patient size (includes targeted exams where dose is matched to clinical indication); or iterative reconstruction. COMPARISON: CT HEAD/BRAIN WO CON 07/19/2021 7:34 AM FINDINGS: Orbital cavity: Orbits are normal. Globes are unremarkable. Bones/joints: No acute fracture. Paranasal sinuses: Normal. No air-fluid levels. Soft tissues: There is soft tissue swelling anterior to the left orbit and maxillary sinus. IMPRESSION: No acute findings.
--- NOTE | 2021-07-19 07:18 | CT_ITS ---
PROCEDURE INFORMATION: Exam: CT Cervical Spine Without Contrast Exam date and time: 07/19/2021 7:18 AM Age: 71 years old Clinical indication: Injury or trauma; Fall; Concussion/head injury; Additional info: Fall, hit head TECHNIQUE: Imaging protocol: Computed tomography images of the cervical spine without contrast. Radiation optimization: All CT scans at this facility use at least one of these dose optimization techniques: automated exposure control; mA and/or kV adjustment per patient size (includes targeted exams where dose is matched to clinical indication); or iterative reconstruction. COMPARISON: CT LUNG SCREENING 08/29/2020 1:18 PM FINDINGS: Bones/joints: The vertebral body heights are maintained. There are no fractures or dislocations of the cervical spine. There is associated marginal endplate osteophytosis. There is hypertrophy and degeneration of the facet joints. The vertebral bodies and posterior elements are well aligned. Discs/Spinal canal/Neural foramina: There is narrowing of the C5-C6 intervertebral disk spaces. Prevertebral Space: The prevertebral soft tissues are unremarkable. Thyroid: There is a 14 mm nodule in the right lobe of the thyroid.No follow-up is recommended.. Lungs: There are emphysematous and fibrotic changes of the lung apices Soft tissues: Unremarkable. IMPRESSION: 1. No fractures or dislocations. 2. Multilevel spondylitic changes. COMMENTS: Consistent with the [employer]'s Incidental Findings Committee white paper (J Am Nicanor Radiol 2015): In patients aged 35 years and older with an incidental thyroid nodule equal to or greater than 1.[address], MRI or extrathyroidal US, further evaluation with dedicated thyroid US is recommended for patients with normal life expectancy and without comorbidities. For smaller nodules without suspicious features, no further evaluation or follow up is recommended.
--- NOTE | 2021-07-19 07:19 | XR_ITS ---
PROCEDURE INFORMATION: Exam: XR Right Forearm Exam date and time: 07/19/2021 7:19 AM Age: 71 years old Clinical indication: Injury or trauma; Fall; Swelling (edema); Wrist; Right; Additional info: Rue pain , fall TECHNIQUE: Imaging protocol: XR Right forearm. Views: 2 views. COMPARISON: CR XR WRIST RT 2V 07/19/2021 7:42 AM FINDINGS: Bones/joints: No acute fracture or malalignment. Osteopenia. Soft tissues: Normal. IMPRESSION: No acute fracture or malalignment.
--- NOTE | 2021-07-19 07:19 | XR_ITS ---
PROCEDURE INFORMATION: Exam: XR Right Elbow Exam date and time: 07/19/2021 7:19 AM Age: 71 years old Clinical indication: Pain; Elbow; Right; Additional info: Fall rue pain TECHNIQUE: Imaging protocol: XR Right elbow. Views: 1 or 2 views. COMPARISON: CR XR WRIST RT 2V 07/19/2021 7:42 AM FINDINGS: Bones/joints: No acute fracture or malalignment. Joint spaces are maintained. No joint effusion. Soft tissues: Normal. IMPRESSION: No acute fracture or malalignment.
--- NOTE | 2021-07-19 07:19 | XR_ITS ---
PROCEDURE INFORMATION: Exam: XR Right Wrist Exam date and time: 07/19/2021 7:19 AM Age: 71 years old Clinical indication: Pain; Wrist; Right; Additional info: Rue pain fall TECHNIQUE: Imaging protocol: XR Right wrist. Views: 1 or 2 views. COMPARISON: CR XR HAND RT MIN 3V 07/19/2021 7:40 AM FINDINGS: Bones/joints: No acute fracture in the wrist. Acute minimally displaced fracture of the base of the 5th proximal phalanx. Mild 1st CMC joint degenerative changes. Osteopenia. Soft tissues: Normal. IMPRESSION: 1. Acute minimally displaced fracture of the base of the 5th proximal phalanx. 2. No acute fracture in the wrist.
--- NOTE | 2021-07-19 07:19 | XR_ITS ---
PROCEDURE INFORMATION: Exam: XR Right Hand Exam date and time: 07/19/2021 7:19 AM Age: 71 years old Clinical indication: Pain; Hand; Right; Additional info: Rue pain fall TECHNIQUE: Imaging protocol: XR Right hand. Views: 3 or more views. COMPARISON: No relevant prior studies available. FINDINGS: Bones/joints: Acute minimally displaced fracture of the base of the 5th proximal phalanx with extension into the 5th MCP joint. Osteopenia. Mild 1st CMC joint degenerative changes. Soft tissues: Normal. IMPRESSION: Acute minimally displaced fracture of the base of the 5th proximal phalanx with extension into the 5th MCP joint.
--- NOTE | 2021-07-19 07:21 | HMH.EDFALL ---
ED Disposition <Bonnie Cobb - Last Filed: 07/19/21 07:21> Condition on Discharge: Good - Critical Care Critical Care Time: No <Gibran Diaz - Last Filed: 07/19/21 09:04> Clinical Impression: Phalanx, proximal fracture of finger Disposition: Home, Self-Care Referrals: Gama Gil MD [Primary Care Provider] - Neftaly Alegria MD [Staff Physician] - Attestation: On 07/19/21, the high probability of a clinically significant, sudden or life threatening deterioration of the following system(s) required my full and direct attention, intervention and personal management. The time I documented below is in addition to time spent performing reported procedures but includes the following listed in this critical care notation. Medical Decision Making - Medical Records Medical records reviewed: Yes: I reviewed the patient's medical records. - Chris Inquiry Pt receiving controlled substance: No - Lab Data Lab results reviewed: Yes: I reviewed the patient's lab results. <Bonnie Cobb - Last Filed: 07/19/21 07:21> <Gibran Diaz - Last Filed: 07/19/21 09:04> Vital Signs: 07/19/21 07:09 07/19/21 07:31 07/19/21 08:00 Temperature 98.1 F Temperature Source Oral Pulse Rate 77 82 Pulse Rate [Left Radial] 63 Respiratory Rate 16 Blood Pressure 148/67 H 135/57 L Blood Pressure [Left Arm] 131/62 Blood Pressure Mean 94 99 Blood Pressure Mean [Left Arm] 85 Blood Pressure Source [Left Arm] Automatic Cuff Blood Pressure Position [Left Arm] Sitting 02 Sat by Pulse Oximetry 99 94 L 94 L Oxygen Delivery Method Room Air Orders (Tests/Meds): ED MEDICATIONS Discontinued Medications Generic Name Dose Route Start Last Admin Trade Name Freq PRN Reason Stop Dose Admin Acetaminophen 650 mg 07/19/21 07:20 07/19/21 07:30 Acetaminophen 325mg Tab PO 07/19/21 07:21 650 mg ONCE ONE Administration Medical Decision Narrative: Miss Aviles is a 71 yo female who presents to the ED for mechanical fall w/ isolated RUE pain and facial trauma. Patient is neurovascularly intact and hemodynamically stable on arrival. Patient denies any prodrumal symptoms prior to falling. She denies LOC. Physical exam remarkable for well appearing female. Ambulatory on arrival. Patient has conjunctival hemorrhage to (L) eye w/ full EOM. Patient has ecchymosis to the (L) maxilla. Ecchymosis to the RUE elbow to the hand, full ROM no sensory or motor deficits. Patient is given tylenol PO for pain control. CT head, CT cervical spine, CT face and XR of RUE elbow to the hand are obtained for further evaluation results pending. Patient care handed off to oncoming physician pending final read on CT scans and final dispo. (Bonnie Cobb) Patient reassessed at 09 100. Patient is alert and oriented. No neuro deficits. CT of the head, face and cervical spine unremarkable. X-rays of the hand demonstrate a minimally angulated proximal fifth phalanx fracture. Fracture placed in a ulnar gutter splint and discharged with orthopedic follow-up (Gibran Diaz) Fall HPI - General Mode of Arrival: Ambulatory Source of Information: Patient Limitations: No Limitations - History of Present Illness MD complaint: fall Onset (ago): day(s) Fall from: standing Fall witnessed: no Place fall occurred: home Loss of consciousness: none Prolonged down time: no Symptoms prior to fall: none Context: tripped/slipped Location of injury: head, face, other (RUE ) Location of injury - extremities: Right: elbow (ecchymosis ), forearm (ecchymosis ), hand (ecchymosis and swelling ) Severity: mild Associated symptoms (after fall): denies <Bonnie Cobb - Last Filed: 07/19/21 07:21> <Gibran Diaz - Last Filed: 07/19/21 09:04> - General Chief Complaint: Fall Stated Complaint: AO fall 07/18 face and rt hand injury Time Seen by Provider: 07/19/21 07:20 - History of Present Illness HPI Narrative: Miss aviles is a 71 yo female w/ PMH for CVA s/p
[2021-07-19 07:31] VITALS: BP 148/67; PULSE 77; O2SAT 94
--- NOTE | 2021-07-19 07:34 | PC.NURSE ---
pt to radiology
--- NOTE | 2021-07-19 07:56 | PC.NURSE ---
pt return from radiology
[2021-07-19 08:00] VITALS: BP 135/57; PULSE 82; O2SAT 94
[2021-07-19 08:31] VITALS: BP 118/53; PULSE 69; O2SAT 92
[2021-07-19 09:01] VITALS: BP 138/50; PULSE 67; O2SAT 98
[2021-07-19 09:10] VITALS: BP 138/50; PULSE 72; RESP 18; TEMP 37; O2SAT 99
== END 2021-07-19 09:10 | disposition home or self-care (01) ==
PROVIDERS: Emergency Provider Internal Medicine Critical Care Medicine; PCP Emergency Medicine
DX: S62.616A Displaced fracture of proximal phalanx of right little finger, initial encounter for closed fracture (principal); W01.0XXA Fall on same level from slipping, tripping and stumbling without subsequent striking against object, initial encounter; Y92.019 Unspecified place in single-family (private) house as the place of occurrence of the external cause; J44.9 Chronic obstructive pulmonary disease, unspecified; I25.10 Atherosclerotic heart disease of native coronary artery without angina pectoris; F41.8 Other specified anxiety disorders; E78.5 Hyperlipidemia, unspecified; I10 Essential (primary) hypertension; F17.210 Nicotine dependence, cigarettes, uncomplicated
CPT/HCPCS: 29125; 70450; 70486; 72125; 73070; 73090; 73100; 73130; 99283

== ENCOUNTER → 2021-08-04 14:14 | Outpatient (CLI) | payer MEDICARE, SELFPAY ==
--- NOTE | 2021-08-04 14:19 | XR_ITS ---
FINAL REPORT CLINICAL HISTORY: rt hand fx COMPARISON: July 19, 2021 FINDINGS: RIGHT HAND Three views were obtained. There is no dislocation. There is a fracture of the proximal aspect of the 5th proximal phalanx. The bony alignment is unchanged. The visualized joint spaces are normally aligned. The soft tissues are unremarkable. IMPRESSION: No significant change in 5th digit fracture. No new fracture identified. Reviewed, Interpreted and Dictated by Bong Fraga III, MD Transcribed by Promise Rain Authenticated by Bong Fraga III, MD on 08/04/2021 03:21:09 PM [facility]
== END ==
PROVIDERS: PCP Emergency Medicine; Visit Provider Orthopaedic Surgery
DX: S62.91XA Unspecified fracture of right hand, initial encounter for closed fracture (principal)
CPT/HCPCS: 73130

== ENCOUNTER 2021-08-09 09:45 | Outpatient (RCR) | payer MEDICARE, MEDICAID, SELFPAY | END 2021-08-09 14:46 | disposition home or self-care (01) | LOC: OT 09:45 | PROVIDERS: PCP Emergency Medicine; Visit Provider Orthopaedic Surgery | DX: S62.646D Nondisplaced fracture of proximal phalanx of right little finger, subsequent encounter for fracture with routine healing (principal) | CPT/HCPCS: 97760 ==

== ENCOUNTER → 2021-08-10 14:19 | Outpatient (CLI) | payer MEDICARE, MEDICAID, SELFPAY ==
--- NOTE | 2021-08-10 14:22 | US_ITS ---
FINAL REPORT CLINICAL HISTORY: THYROID NODULE-- fu COMPARISON: May 25, 2021 FINDINGS: THYROID ULTRASOUND The right lobe of the thyroid measures 4.3 x 2.1 x 1.3 cm. The left lobe of the thyroid measures 3.8 x 1.4 x 0.9 cm. There are multiple nodules. The dominant right thyroid nodule measures 2.2 x 1.4 cm and previously measured 2.5 x 1.3 cm. This is not significantly changed and is predominantly solid and isoechoic consistent with a TI-RADS 3. There are 2 small left thyroid nodules measuring 0.3 and 0.6 cm, stable from prior. IMPRESSION: Multiple stable thyroid nodules bilaterally. Recommend additional follow-up in 6 months. Reviewed, Interpreted and Dictated by Bong Fraga III, MD Transcribed by Ahsan Reid Authenticated by Bong Fraga III, MD on 08/10/2021 03:27:[address] [facility]
== END ==
PROVIDERS: PCP Emergency Medicine; Visit Provider Otolaryngology
DX: E04.1 Nontoxic single thyroid nodule (principal)
CPT/HCPCS: 76536

== ENCOUNTER → 2021-09-01 11:56 | Outpatient (CLI) | payer MEDICARE, MEDICAID, SELFPAY ==
--- NOTE | 2021-09-01 12:03 | XR_ITS ---
FINAL REPORT CLINICAL HISTORY: . f/u fx COMPARISON: August 04, 2021 FINDINGS: 3 views of the right hand were obtained. There is a fracture of the proximal aspect of the 5th proximal phalanx. Bony alignment is stable. There has been partial interval healing. Mild degenerative changes are present. There is no soft tissue abnormality. IMPRESSION: Partial interval healing of a 5th proximal phalanx fracture. Reviewed, Interpreted and Dictated by Bong Fraga III, MD Transcribed by Ahsan Reid Authenticated by Bong Fraga III, MD on 09/01/2021 01:38:24 PM [facility]
--- NOTE | 2021-09-01 12:13 | CT_ITS ---
FINAL REPORT TECHNIQUE: Axial images were obtained from the lung apex to the mid abdomen by computed tomography. Low-dose protocol was utilized. CLINICAL HISTORY: . current smoker COMPARISON: 09/18/2020 FINDINGS: CHEST CT LOW DOSE CTDI vol (mGy): 2.90 DLP (mGy-cm): 108.38 There is a 17 mm right thyroid lobe nodule, stable. There are multiple small mediastinal nodes. There is no axillary adenopathy. The heart is normal in size. There is no pericardial or pleural effusion. There are several bilateral pulmonary nodules which are stable. There is a 5 mm medial left upper lobe nodule which is stable. This is well-seen on image #16. There is a new, 9 mm nodular opacity in the posterior right upper lobe well-seen on image #28. There is worsening right middle lobe atelectasis or scar. There is a calcified granuloma in the left lung. Limited images of the upper abdomen show left adrenal gland enlargement, favor an adenoma. IMPRESSION: New, 9 mm nodular opacity in the posterior right upper lobe. Lung RADS category 4B. Recommend PET/CT follow-up. Reviewed, Interpreted and Dictated by Bong Fraga III, MD Transcribed by Angelita Judd Authenticated by Bong Fraga III, MD on 09/01/2021 02:57:[address] [facility]
== END ==
PROVIDERS: PCP Emergency Medicine; Visit Provider Internal Medicine Pulmonary Disease
DX: S62.619A Displaced fracture of proximal phalanx of unspecified finger, initial encounter for closed fracture (principal); Z87.891 Personal history of nicotine dependence; Z12.2 Encounter for screening for malignant neoplasm of respiratory organs
CPT/HCPCS: 71271; 73130

== ENCOUNTER → 2021-09-22 10:21 | Outpatient (CLI) | payer MEDICARE, MEDICAID, SELFPAY ==
--- NOTE | 2021-09-22 10:26 | XR_ITS ---
FINAL REPORT CLINICAL HISTORY: 5th digit fracture COMPARISON: September 01, 2021 FINDINGS: RIGHT HAND: 3 views of the right hand were obtained. There is a fracture of the proximal aspect of the 5th proximal phalanx with evidence of interval healing. There is no acute fracture. There is mild degenerative change. Soft tissues are unremarkable. IMPRESSION: Healing 5th metacarpal fracture. Reviewed, Interpreted and Dictated by Bong Fraga III, MD Transcribed by Ahsan Reid Authenticated by Bong Fraga III, MD on 09/22/2021 11:26:18 AM [facility]
== END ==
PROVIDERS: PCP Emergency Medicine; Visit Provider Orthopaedic Surgery
DX: S62.619A Displaced fracture of proximal phalanx of unspecified finger, initial encounter for closed fracture (principal)
CPT/HCPCS: 73130

== ENCOUNTER → 2021-10-19 13:42 | Outpatient (CLI) | payer MEDICARE, MEDICAID, SELFPAY ==
[2021-10-19 15:25] LABS: Erythrocyte Sedimentation Rate 15 mm/hr (0-30)
[2021-10-19 16:08] LABS: C-Reactive Protein 1.2 mg/L (0-4)
== END ==
PROVIDERS: PCP Emergency Medicine; Visit Provider Specialist
DX: R51.9 Headache, unspecified (principal)
CPT/HCPCS: 36415; 85651; 86140

== ENCOUNTER → 2021-10-27 09:21 | Outpatient (CLI) | payer MEDICARE, MEDICAID, SELFPAY ==
--- NOTE | 2021-10-27 09:25 | XR_ITS ---
FINAL REPORT CLINICAL HISTORY: 5th digit fx COMPARISON: September 22, 2021 FINDINGS: RIGHT HAND Three views demonstrate a chronic fracture of the proximal aspect of the 5th proximal phalanx which appears stable. There is no dislocation. There are mild degenerative changes. The soft tissues are unremarkable. IMPRESSION: Chronic fracture of the 5th proximal phalanx. Reviewed, Interpreted and Dictated by Bong Fraga III, MD Transcribed by Promise Rain Authenticated by Bong Fraga III, MD on 10/27/2021 10:37:[address] [facility]
== END ==
PROVIDERS: PCP Emergency Medicine; Visit Provider Orthopaedic Surgery
DX: S62.646D Nondisplaced fracture of proximal phalanx of right little finger, subsequent encounter for fracture with routine healing (principal)
CPT/HCPCS: 73130

== ENCOUNTER → 2021-11-24 09:04 | Outpatient (CLI) | payer MEDICARE, MEDICAID, SELFPAY ==
--- NOTE | 2021-11-24 09:08 | XR_ITS ---
FINAL REPORT CLINICAL HISTORY: 5th finger fx f/u COMPARISON: October 27, 2021 FINDINGS: 3 views of the right hand were obtained. There is a healed fracture of the base of the 5th proximal phalanx, stable. On the lateral view is soft tissue swelling dorsal aspect of the distal metacarpals. The joint spaces are intact. IMPRESSION: Healed fracture of the of the 5th proximal phalanx, stable. Reviewed, Interpreted and Dictated by Lul Patton MD Transcribed by Ahsan Reid Authenticated by Lul Patton MD on 11/24/2021 10:12:43 AM [facility]
== END ==
PROVIDERS: PCP Emergency Medicine; Visit Provider Orthopaedic Surgery
DX: S62.646D Nondisplaced fracture of proximal phalanx of right little finger, subsequent encounter for fracture with routine healing (principal)
CPT/HCPCS: 73130

== ENCOUNTER 2021-11-29 14:00 | Outpatient (RCR) | payer MEDICARE, MEDICAID, SELFPAY ==
--- NOTE | 2021-11-02 11:17 | HMH.OTOPEV ---
OT Inpatient Evaluation Rehab OT Outpatient Eval Start: 11/02/21 10:35 Freq: Status: Active Protocol: Document 11/02/21 10:36 VIKTOR (Rec: 11/02/21 11:17 VIKTOR [id number]) Electronically Signed By Shawanda España OT 11/02/21 10:36 Outpatient Therapy Subjective History Subjective History 71 year old female referred to skilled OP OT services for chronic fx of the 5th proximal phalanx. Patient reported falling in Aug 2021 when taking trash out with resulting in fx to 5th digit. After wearing a partial cast for 1-1.5 months, Patient was completing AROM of 5th digits indepedently, however ~1 month patient continues to have limited AROM of MP, PIP and DIP AROM of 5th digit. f/u x- ray on 10/27/21 with healing of chronic fracture of the 5th proximal phalanx. 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 Director Finance Strength Symptom Type Ache,Throb Symptoms Relieved By Nothing Symptoms Aggravated By Physical Activity Prior Functional Limitations None Current Functional Limitations Reaching,Lifting,Recreation Activity Symptom Description Constant and Continuous Level of pain today (0-10) 0 Pain scale - at its best (0-10) 0 Pain scale - at its worst (0-10) 7 Wrist/Hand Eval Finger Range of Motion Right Little Finger Finger Metacarpophalangeal Flexion 60 Active Range of Motion (degrees) Finger Metacarpophalangeal Extension 25 Active Range of Motion (degrees) Finger Proximal Interphalangeal Flexion 65 Active Range (degrees) Finger Distal Interphalangeal Flexion 50 Active Range of Motion (degrees) Senior Director Finance/Pinch Strength Right Senior Director Finance Strength Measurement (lbs) 20 Left Senior Director Finance Strength Measurement (lbs) 50 OT Outpatient Assessment Impairments Problems/Impairments Impaired Range of Motion, Impaired Strength,Subjective C /O Pain Prognosis Rehab Potential Good Clinical Impression Consistent with Diagnosis Yes Short Term Goals Number of Weeks 2 Increase Range of Motion Yes: Improve R 5th digit MP flex: 70; PIP flex: 75; DIP:60 Increase Strength Yes: 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
== END 2021-11-29 14:05 | disposition home or self-care (01) ==
LOC: OT 14:00
PROVIDERS: PCP Emergency Medicine; Visit Provider Orthopaedic Surgery
DX: S62.646D Nondisplaced fracture of proximal phalanx of right little finger, subsequent encounter for fracture with routine healing (principal)
CPT/HCPCS: 97010; 97014; 97018; 97110; 97140; 97165; G0283

== ENCOUNTER → 2021-11-30 14:17 | Outpatient (CLI) | payer MEDICARE, MEDICAID, SELFPAY ==
--- NOTE | 2021-11-30 14:21 | CT_ITS ---
FINAL REPORT TECHNIQUE: This study was performed with techniques to keep radiation doses as low as reasonably achievable, (ALARA). Individualized dose reduction techniques using automated exposure control or adjustment of mA and/or kV according to the patient''s size were employed. CLINICAL HISTORY: Lung nodule follow-up COMPARISON: September 01, 2021 and August 29, 2020 FINDINGS: CTDI vol (mGy): 2.90 DLP (mGy-cm): 108.[address] images of the chest were obtained using the low-dose protocol for screening. There is no evidence of mediastinal or hilar mass or adenopathy. No axillary mass or adenopathy is identified. On the lung window images, there is a 5 mm left upper lobe nodule on image 16, stable. There is a 9 mm ground-glass nodule in the posterior right upper lobe image 27, stable since 2021 but new since 2020. There is scarring at the bilateral lung apices, right greater than left, stable. There are moderate changes of emphysema. There is a calcified granuloma in the lingula. Limited images of the upper abdomen demonstrate status post cholecystectomy. There are multiple presumed bilateral renal cysts. There is an enlarged left adrenal gland, adenoma versus hyperplasia. IMPRESSION: Lung RADS category 2. Recommend 12 month followup low-dose CT for further evaluation. Bilateral lung nodules as described. Enlarged left adrenal gland, adenoma versus hyperplasia. Reviewed, Interpreted and Dictated by Bong Fraga III, MD Transcribed by Jennifer Mullen Authenticated by Bong Fraga III, MD on 11/30/2021 04:49:20 PM [facility]
== END ==
PROVIDERS: PCP Emergency Medicine; Visit Provider Internal Medicine Pulmonary Disease
DX: R91.8 Other nonspecific abnormal finding of lung field (principal)
CPT/HCPCS: 71250

== ENCOUNTER 2021-12-28 19:50 | Emergency (ER) | payer MEDICARE, MEDICAID, SELFPAY ==
[2021-12-28] VITALS (10 sets, daily range): BP systolic 105–148; BP diastolic 44–90; PULSE 67–86; RESP 14–17; TEMP 36.4–36.6; O2SAT 95–99; BMI 22.3
--- NOTE | 2021-12-28 19:49 | ECG_ITS ---
APPROVED REPORT Exam: Resting ECG HR:67 bpm ECG Measurements Heart Rate 67 AXES MS 157 P 71 QRSd 102 QRS 49 QT 360 T 55 QTc 375 Conclusion SINUS RHYTHM WITH MARKED SINUS ARRHYTHMIA BORDERLINE ECG UNCONFIRMED REPORT Electronically signed by : Romulo Flores MD 12/29/2021 14:18:40
--- NOTE | 2021-12-28 19:59 | XR_ITS ---
PROCEDURE INFORMATION: Exam: XR Chest Exam date and time: 12/28/2021 7:57 PM Age: 71 years old Clinical indication: Pain; Left-sided; Additional info: Cp TECHNIQUE: Imaging protocol: XR of the chest. Views: 2 views. COMPARISON: CT CHEST WO CON 11/30/2021 2:47 PM FINDINGS: Lungs: Emphysema with apical scarring. No consolidation. Pleural spaces: No pleural effusion. No pneumothorax. Heart/Mediastinum: No cardiomegaly. Bones/joints: Unremarkable. IMPRESSION: No acute findings.
[2021-12-28 20:09] LABS: Basophils # 0.3 K/mm3 (0-0.2); Basophils % 2.3 % (0.1-2.0); Eosinophils # 0.4 K/mm3 (0.0-0.4); Eosinophils % 2.9 % (0.1-12.0); Hematocrit 42.2 % (37.0-47.0); Hemoglobin 13.6 g/dL (12.2-16.2); Lymphocytes % 32.4 % (10-50); Mean Corpuscular HGB Conc 32.3 g/dL (31.8-35.4); Mean Corpuscular Hemoglobin 26.8 pg (27.0-31.2); Mean Platelet Volume 7.6 fl (7.4-10.4); Monocytes # 0.7 K/mm3 (0.1-1.0); Monocytes % 5.9 % (1.7-9.3); Neutrophils # 6.9 K/mm3 (1.8-7.8); Neutrophils % 56.4 % (37.0-80.0); Platelet Count 333 K/mm3 (142-424); Red Blood Count 5.08 M/mm3 (4.20-5.40); Red Cell Distribution Width 16.3 % (11.5-17.5); White Blood Count 12.2 K/mm3 (4.8-10.8)
[2021-12-28 20:12] LABS: Blood Urea Nitrogen 12 mg/dl (7-17); Calcium 9.7 mg/dl (8.4-10.2); Carbon Dioxide 29 mmol/L (22.0-30.0); Chloride 107 mmol/L (98-107); Creatinine Clearance Estimated 44 mL/min (50-200); Estimated Glomerular Filt Rate 62 ml/min (>60); GFR (African American) 74 ML/MIN (>60); Glucose 115 mg/dl (74-100); Sodium 143 mmol/L (136-145)
[2021-12-28 20:13] LABS: Alanine Aminotransferase 22 U/L (12-78); Albumin Level 4.3 g/dl (3.5-5.0); Alkaline Phosphatase 92 U/L (38-126); Aspartate Amino Transferase 33 U/L (14-36); Bilirubin,Indirect 0.3 mg/dL (0.0-0.9); Bilirubin,Total 0.3 mg/dl (0.2-1.3); Bilirubin,Unconjugated 0.6 mg/dL (0.0-1.1); Total Protein,Serum 7.5 g/dl (6.3-8.2)
[2021-12-28 20:25] LABS: Troponin I < 0.01 ng/ml (0.00-0.034)
--- NOTE | 2021-12-28 20:38 | HMH.EDGENADL ---
ED Disposition Clinical Impression: Chest pain Qualifiers: Chest pain type: unspecified Qualified Code(s): R07.9 - Chest pain, unspecified Disposition: Home, Self-Care Condition on Discharge: Good Referrals: Gama Gil MD [Primary Care Provider] - - Critical Care Critical Care Time: No Attestation: On 12/28/21, the high probability of a clinically significant, sudden or life threatening deterioration of the following system(s) required my full and direct attention, intervention and personal management. The time I documented below is in addition to time spent performing reported procedures but includes the following listed in this critical care notation. Medical Decision Making - Medical Records Medical records reviewed: Yes: I reviewed the patient's medical records. - Chris Inquiry Pt receiving controlled substance: No Vital Signs: 12/28/21 19:50 12/28/21 19:58 12/28/21 20:30 Temperature 97.5 F L Temperature Source Oral Pulse Rate 83 86 Pulse Rate [Right Brachial] 67 Respiratory Rate 16 Blood Pressure 148/69 H 142/59 H Blood Pressure [Right Arm] 105/57 L Blood Pressure Mean [Right Arm] 73 Blood Pressure Source [Right Arm] Automatic Cuff Blood Pressure Position [Right Arm] Sitting 02 Sat by Pulse Oximetry 99 95 97 Oxygen Delivery Method Room Air 12/28/21 21:00 12/28/21 21:36 12/28/21 22:03 Temperature Temperature Source Pulse Rate 78 72 74 Pulse Rate [Right Brachial] Respiratory Rate 14 Blood Pressure 123/57 L 132/57 L 130/44 L Blood Pressure [Right Arm] Blood Pressure Mean [Right Arm] Blood Pressure Source [Right Arm] Blood Pressure Position [Right Arm] 02 Sat by Pulse Oximetry 97 98 97 Oxygen Delivery Method 12/28/21 22:35 12/28/21 23:03 Temperature Temperature Source Pulse Rate 80 79 Pulse Rate [Right Brachial] Respiratory Rate 17 Blood Pressure 120/65 114/66 Blood Pressure [Right Arm] Blood Pressure Mean [Right Arm] Blood Pressure Source [Right Arm] Blood Pressure Position [Right Arm] 02 Sat by Pulse Oximetry 96 96 Oxygen Delivery Method - Lab Data Lab results reviewed: Yes: I reviewed the patient's lab results. Lab Results 12/28/21 19:56: WBC 12.2 H, RBC 5.08, Hgb 13.6, Hct 42.2, MCV 83.0, MCH 26.8 L, MCHC 32.3, RDW 16.3, Plt Count 333, MPV 7.6, Neut % (Auto) 56.4, Lymph % (Auto) 32.4, Bleckley % (Auto) 5.9, Eos % (Auto) 2.9, Baso % (Auto) 2.3 H, Neut # (Auto) 6.9, Lymph # (Auto) 4.0, Bleckley # (Auto) 0.7, Eos # (Auto) 0.4, Baso # (Auto) 0.3 H 12/28/21 19:56: Sodium 143, Potassium 4.0, Chloride 107, Carbon Dioxide 29, Anion Gap 11.0, BUN 12, Creatinine 0.90, Estimated Creat Clear 44, Estimated GFR 62, Est GFR ( Amer) 74, Glucose 115 H, Calcium 9.7, Troponin I < 0.01 12/28/21 19:56: Total Bilirubin 0.3, Direct Bilirubin 0.0, Conjugated Bilirubin 0.0, Indirect Bilirubin 0.3, Unconjugated Bilirubin 0.6, AST 33, ALT 22, Alkaline Phosphatase 92, Total Protein 7.5, Albumin 4.3 12/28/21 19:56: D-Dimer 0.77 H 12/28/21 19:56: NT-Pro-B Natriuret Pep 174 H 12/28/21 22:36: Troponin I < 0.01 Result diagrams: 12/28/21 19:56 12/28/21 19:56 Orders (Tests/Meds): ED MEDICATIONS Discontinued Medications Generic Name Dose Route Start Last Admin Trade Name Efrain PRN Reason Stop Dose Admin Acetaminophen 1,000 mg 12/28/21 20:38 12/28/21 21:06 Acetaminophen 500mg Tab PO 12/28/21 20:39 1,000 mg ONCE ONE Administration Aspirin 325 mg 12/28/21 20:38 12/28/21 21:07 Aspirin 325mg Tablet PO 12/28/21 20:39 325 mg ONCE ONE Administration Ketorolac Tromethamine 15 mg 12/28/21 20:39 12/28/21 21:08 Ketorolac 30mg/Ml Vial IV 12/28/21 20:40 15 mg ONCE ONE Administration Oxycodone HCl 5 mg 12/28/21 22:52 Oxycodone 5mg Immediate Release Tablet PO 12/28/21 22:53 ONCE ONE Prochlorperazine Edisylate 10 mg 12/28/21 22:52 Prochlorperazine 10mg/2ml Vial IV 12/28/21 22:53 ONCE ONE
[2021-12-28 20:56] LABS: D-Dimer 0.77 ug/mL (0.0-0.5)
[2021-12-28 21:01] LABS: NT Pro Brain Natriuretic Pep. 174 pg/mL (0-125)
[2021-12-28 23:07] LABS: Troponin I < 0.01 ng/ml (0.00-0.034)
== END 2021-12-29 00:11 | disposition home or self-care (01) ==
PROVIDERS: Emergency Medicine; Emergency Provider Student in an Organized Health Care Education/Training Program; PCP Emergency Medicine
DX: R07.9 Chest pain, unspecified (principal); M79.602 Pain in left arm; R20.2 Paresthesia of skin; R11.0 Nausea; I72.9 Aneurysm of unspecified site; E78.5 Hyperlipidemia, unspecified; G43.909 Migraine, unspecified, not intractable, without status migrainosus; J44.9 Chronic obstructive pulmonary disease, unspecified; F32.A Depression, unspecified; F41.9 Anxiety disorder, unspecified; F17.210 Nicotine dependence, cigarettes, uncomplicated; Z79.01 Long term (current) use of anticoagulants; Z79.2 Long term (current) use of antibiotics; Z79.51 Long term (current) use of inhaled steroids; Z79.52 Long term (current) use of systemic steroids; Z79.82 Long term (current) use of aspirin; Z99.81 Dependence on supplemental oxygen; Z79.899 Other long term (current) drug therapy; Z88.0 Allergy status to penicillin; Z88.8 Allergy status to other drugs, medicaments and biological substances; Z82.49 Family history of ischemic heart disease and other diseases of the circulatory system
CPT/HCPCS: 71046; 80048; 80076; 83880; 84484; 85025; 85378; 93005; 96374; 99285

== ENCOUNTER → 2022-01-11 14:11 | Outpatient (CLI) | payer MEDICARE, MEDICAID, SELFPAY ==
--- NOTE | 2022-01-11 14:14 | XR_ITS ---
FINAL REPORT CLINICAL HISTORY: soa COMPARISON: December 28, 2021 FINDINGS: Two views of the chest were obtained. The heart size and pulmonary vascularity are within normal limits. The mediastinum is normal. There is hyperinflation consistent COPD. There is mild left lung base atelectasis. There is no pneumothorax. The bony thorax is intact. IMPRESSION: COPD Mild left lung base atelectasis. Reviewed, Interpreted and Dictated by Bong Fraga III, MD Transcribed by Promise Rain Authenticated and [facility]
== END ==
PROVIDERS: PCP Emergency Medicine; Visit Provider Internal Medicine Pulmonary Disease
DX: J44.9 Chronic obstructive pulmonary disease, unspecified (principal)
CPT/HCPCS: 71046

== ENCOUNTER → 2022-02-13 11:07 | Outpatient (CLI) | payer MEDICARE, MEDICAID, SELFPAY ==
--- NOTE | 2022-02-13 11:24 | CT_ITS ---
FINAL REPORT TECHNIQUE: Axial imaging of the chest is obtained after the administration of contrast. 3-D MIP reformatted images were also obtained and reviewed per PE protocol. CLINICAL HISTORY: dyspnea, to rule out PE COMPARISON: CT lung cancer screening exam dated 09/01/2021. FINDINGS: The pulmonary arteries are well filled. There is no evidence of pulmonary embolus. There is no aortic dissection or intimal flap. There is a hypodense lesion in the inferior right thyroid. There is no lymphadenopathy. There are changes of emphysema. There is an irregular opacity at the right apex measuring 2.8 x 1.5 cm on image 23. This is unchanged from August. There is a left apical opacity with some surrounding groundglass opacity. This is also stable and may be scarring as well. The lungs are otherwise clear. There is no pleural or pericardial effusion. Limited evaluation of the upper abdomen is without acute abnormality. There is a left renal cyst which is incompletely imaged. There is no acute osseous abnormality. IMPRESSION: No evidence of pulmonary embolism or aortic dissection. Irregular opacity at the right greater than left lung apex, stable since screening CT in August 2021. This may be scar. However, neoplasm not excluded. Follow-up or PET/CT recommended. Right thyroid nodule. Consider ultrasound if indicated. Authenticated and [facility]
[2022-02-13 11:50] LABS: Blood Urea Nitrogen 11 mg/dl (7-17); Estimated Glomerular Filt Rate 82 ml/min (>60); GFR (African American) 100 ML/MIN (>60)
== END ==
PROVIDERS: PCP Emergency Medicine; Visit Provider Physician Assistant
DX: I63.332 Cerebral infarction due to thrombosis of left posterior cerebral artery (principal); J43.9 Emphysema, unspecified; R06.09 Other forms of dyspnea; R07.89 Other chest pain; Z72.0 Tobacco use
CPT/HCPCS: 36415; 71275; 82565; 84520; Q9967

== ENCOUNTER → 2022-03-09 09:14 | Outpatient (CLI) | payer MEDICARE, MEDICAID, SELFPAY ==
--- NOTE | 2022-03-09 09:18 | XR_ITS ---
FINAL REPORT CLINICAL HISTORY: small finger injury. patient fell and has pain in 5th digit. unable to straighten finger. COMPARISON: 11/24/2021 FINDINGS: Right hand Three views were obtained. There is no acute fracture or dislocation. Mild degenerative changes are present. There is stable chronic deformity of the 5th proximal phalanx, likely represents an old fracture. No soft tissue abnormality is identified. IMPRESSION: Degenerative and chronic appearing findings. Reviewed, Interpreted and Dictated by Bong Fraga III, MD Transcribed by Angelita Judd Authenticated and [facility]
== END ==
PROVIDERS: PCP Emergency Medicine; Visit Provider Orthopaedic Surgery
DX: M79.644 Pain in right finger(s) (principal)
CPT/HCPCS: 73130

== ENCOUNTER → 2022-03-12 14:25 | Outpatient (CLI) | payer MEDICARE, MEDICAID, SELFPAY ==
--- NOTE | 2022-03-12 14:29 | US_ITS ---
FINAL REPORT CLINICAL HISTORY: THYROID NODULE COMPARISON: August 10, 2021 FINDINGS: THYROID ULTRASOUND Sonographic images of the thyroid was obtained. The right lobe of the thyroid measures 4.8 x 1.6 x 1.8 cm. The left lobe of the thyroid measures 4.3 x 1.3 x 1.6 cm. The isthmus measures 2 mm. The dominant nodule in the right lobe measures 2.2 cm, is partially cystic and partially solid consistent with TI-RADS 3. IMPRESSION: Dominant right lobe nodule less than 2.5 cm and stable as compared to previous. Recommend additional 1 year follow-up. Reviewed, Interpreted and Dictated by Lul Patton MD Transcribed by Promise Rain Authenticated and [facility]
== END ==
PROVIDERS: PCP Emergency Medicine; Visit Provider Otolaryngology
DX: E04.1 Nontoxic single thyroid nodule (principal)
CPT/HCPCS: 76536

== ENCOUNTER 2022-07-29 21:27 | Emergency (ER) | payer MEDICARE, MEDICAID, SELFPAY ==
[2022-07-29 21:28] VITALS: BP 110/59; PULSE 77; RESP 16; TEMP 36.6; O2SAT 98; BMI 21.2
[2022-07-29 21:32] VITALS: BP 110/59; PULSE 84; O2SAT 96
--- NOTE | 2022-07-29 21:45 | ECG_ITS ---
APPROVED REPORT Exam: Resting ECG HR:80 bpm ECG Measurements Heart Rate 80 AXES VT 161 P 83 QRSd 98 QRS 74 QT 343 T 51 QTc 379 Conclusion SINUS RHYTHM WITH SINUS ARRHYTHMIA NONSPECIFIC ST & T-WAVE ABNORMALITY BORDERLINE ECG UNCONFIRMED REPORT Electronically signed by : Romulo Flores MD 07/30/2022 19:24:04
--- NOTE | 2022-07-29 21:49 | XR_ITS ---
PROCEDURE INFORMATION: Exam: XR Chest Exam date and time: 07/29/2022 10:33 PM Age: 72 years old Clinical indication: Pain; Chest pressure; Additional info: Chest pain TECHNIQUE: Imaging protocol: Radiologic exam of the chest. Views: 2 views. COMPARISON: CR XR CHEST 2V 01/11/2022 2:23 PM FINDINGS: Lungs: There is biapical pleural plaquing [id number]-[id number]-left. Right perihilar bandlike density. No consolidation. Pleural spaces: Unremarkable. No pleural effusion. No pneumothorax. Heart/Mediastinum: Unremarkable. No cardiomegaly. Vasculature: Unremarkable. Bones/joints: Unremarkable. IMPRESSION: Right perihilar atelectasis. There is no consolidation or acute failure.
--- NOTE | 2022-07-29 21:49 | CT_ITS ---
PROCEDURE INFORMATION: Exam: CTA Chest With Contrast Exam date and time: 07/29/2022 10:48 PM Age: 72 years old Clinical indication: Pain; Chest pressure; Additional info: Chest pain TECHNIQUE: Imaging protocol: Computed tomographic angiography of the chest with contrast. 3D rendering (Not supervised by radiologist): MIP and/or 3D reconstructed images were created by the technologist. Radiation optimization: All CT scans at this facility use at least one of these dose optimization techniques: automated exposure control; mA and/or kV adjustment per patient size (includes targeted exams where dose is matched to clinical indication); or iterative reconstruction. Contrast material: ISOUVE; Contrast volume: 70 ml; Contrast route: INTRAVENOUS (IV); COMPARISON: CT ANGIO CHEST PE PROTOCOL 02/13/2022 12:29 PM FINDINGS: Pulmonary arteries: Normal. No pulmonary emboli. Aorta: Unremarkable. No aortic aneurysm. No aortic dissection. Thyroid: 20 x 21 x 26 mm right thyroid nodule. Lungs: Right middle lobe atelectasis. Biapical pleural-parenchymal scarring oudgx-olkngtk-jahe-left similar to the prior exam. There are associated bullous changes. Mild emphysematous changes. Left upper lobe calcified granuloma. Small ground-glass infiltrate within the posterolateral right lower lobe centered on image 89 series 5. Pleural spaces: No pleural effusion. Heart: Unremarkable. No cardiomegaly. No pericardial effusion. Lymph nodes: Unremarkable. No enlarged lymph nodes. Gallbladder and bile ducts: The gallbladder is absent. There is no biliary ductal dilation. Adrenal glands: Stable 15 mm low-density left adrenal nodule. Bones/joints: Unremarkable. No acute fracture. Soft tissues: Unremarkable. IMPRESSION: 1. There is no pulmonary embolus or acute aortic finding. 2. Small inflammatory focus within the posterolateral right lower lobe. Right middle lobe atelectasis. 3. Stable biapical pleural-parenchymal scarring tioyf-huijuuo-pqho-left with associated bullous changes. Mild emphysematous changes are present as well. 4. 2.6 cm right thyroid nodule. This has been followed with ultrasound previously. 5. Stable 15 mm left adrenal lesion. COMMENTS: 1. Consistent with the [employer]'s Incidental Findings Committee white paper (J Am Nicanor Radiol 2015): In patients aged 35 years and older with an incidental thyroid nodule equal to or greater than 1.[address], MRI or extrathyroidal US, further evaluation with dedicated thyroid US is recommended for patients with normal life expectancy and without comorbidities. For smaller nodules without suspicious features, no further evaluation or follow up is recommended. 2. In the absence of a history or active diagnosis of lung cancer, it is recommended that this patient with emphysema be evaluated for enrollment in a low dose CT lung cancer screening program.
--- NOTE | 2022-07-29 21:55 | HMH.EDCP ---
Discharge Plan Disposition Patient Disposition: Home, Self-Care Chief Complaint: Chest Pain Prescriptions Prescriptions: No Action esomeprazole magnesium 40 mg capsule,delayed release(DR/EC) 40 mg PO DAILY Qty: 60 4RF ibuprofen 400 mg tablet 400 mg PO Q8H PRN (Reason: pain) Qty: 30 0RF Anoro Ellipta 62.5-25 mcg/actuation blister with device 1 inh IH DAILY 90 Days Qty: 180 2RF albuterol sulfate 90 mcg/actuation HFA aerosol inhaler 2 inh INHALATION QID PRN (Reason: shortness of breath or wheezing) 90 Days Qty: 8.5 2RF divalproex [Depakote] 250 mg tablet,delayed release (DR/EC) 500 mg PO QHS Qty: 60 6RF trazodone 50 mg tablet 50 mg PO HS MDD 100 mg PRN (Reason: insomnia) Qty: 60 6RF Rx Instructions: 50 mg p.o. nightly no later than 9 PM. May increase up to 100 mg p.o. nightly if persistent symptoms and no side effects. Ajovy Autoinjector 225 mg/1.5 mL auto-injector 675 mg SQ [id number] aspirin 81 mg tablet,delayed release (DR/EC) See Rx Instructions .ROUTE .COMPLEX Qty: 100 5RF Dose Instruction: TAKE ONE TABLET BY MOUTH ONCE A DAY Rx Instructions: TAKE ONE TABLET BY MOUTH ONCE A DAY metoprolol succinate 25 mg tablet extended release 24 hr See Rx Instructions .ROUTE .COMPLEX Qty: 90 2RF Dose Instruction: TAKE ONE TABLET BY MOUTH ONCE A DAY Rx Instructions: TAKE ONE TABLET BY MOUTH ONCE A DAY atorvastatin 40 mg tablet See Rx Instructions .ROUTE .COMPLEX Qty: 90 5RF Dose Instruction: TAKE ONE TABLET BY MOUTH ONCE A DAY Rx Instructions: TAKE ONE TABLET BY MOUTH ONCE A DAY Clinical Impressions Clinical Impression: Chest pain, Tobacco use, COPD (chronic obstructive pulmonary disease) Instructions Patient Instructions: DI for Atypical Chest Pain Discharge ED Provider: Gama Gil Chest Pain HPI General Chief Complaint: Chest Pain Stated Complaint: chest pain Time Seen by Provider: 07/29/22 21:55 Mode of Arrival: Ambulatory Source of Information: Patient and Medical Record Limitations: No Limitations Description of Symptoms (Recalled from ER Triage Doc. by RN): pt reports pain that shoots down the left side of her back down to her left lung and takes her breath. History of Present Illness HPI narrative: yesterday and today has post chest pain with lt lat chest pain with tingling to lt upper ext - pt has hx of copd and uses tob - also has hx of cad- MD complaint: chest pain indicative of cardiac Onset (ago): day(s) Duration: intermittent Activity at onset: during rest Pain location: left chest Severity: moderate Quality: dull Pain radiation: back Associated symptoms: dyspnea Risk Factors for CAD: Hypertension, Family Hx of CAD and Smoking Treatments prior to or on arrival for Cardiac Chest Pain: none TYLER Score for Non-Stemi Age of Patient: 70-79 years old Heart Rate: 70-89 bpm Systolic Blood Pressure: 120-139 mmhg Serum Creatinine: 0.80-1.19 mg/dl CHF Killip Class: I-No CHF Other Risk Factors: None Non-Stemi Risk Score: 125 Risk Stratification: 109-140 = Intermediate Ri Related Data Prior Cardiac Testing/Procedures: Stress Test On Oral Contraceptives: No Home Medications Medication Instructions Recorded Confirmed fremanezumab-vfrm 225 mg/1.5 mL 675 mg SQ [id number] 05/15/22 07/27/22 subcutaneous auto-injector (AjovDoppelgames) Previous Rx's Medication Instructions Recorded esomeprazole magnesium 40 mg 40 mg PO DAILY #60 caps 06/28/21 capsule,delayed release ibuprofen 400 mg tablet 400 mg PO Q8H PRN pain #30 tabs 01/12/22 albuterol sulfate 90 mcg/actuation 2 inh inhalation QID PRN shortness 03/07/22 aerosol inhaler of breath or wheezing 90 days #8.5 grams umeclidinium 62.5 mcg-vilanterol 1 inh inhalation DAILY 90 days 03/07/22 25 mcg/actuation powdr for #180 ea inhalation (Anoro Ellipta) divalproex 250 mg tablet,delayed 500 mg PO QHS #60 tabs 05/15/22 release (Depakote) trazodone 50 mg tablet 50 m
[2022-07-29 22:00] VITALS: BP 114/58; PULSE 74; O2SAT 95
[2022-07-29 22:10] LABS: Basophils # 0.2 K/mm3 (0-0.2); Basophils % 1.6 % (0.1-2.0); Eosinophils # 0.2 K/mm3 (0.0-0.4); Eosinophils % 1.6 % (0.1-12.0); Hemoglobin 13.3 g/dL (12.2-16.2); Lymphocytes # 6.4 K/mm3 (0.7-4.5); Lymphocytes % 46.2 % (10-50); Mean Corpuscular HGB Conc 32.6 g/dL (31.8-35.4); Mean Corpuscular Hemoglobin 27.6 pg (27.0-31.2); Mean Corpuscular Volume 84.8 fl (81-99); Mean Platelet Volume 8.6 fl (7.4-10.4); Monocytes % 7.5 % (1.7-9.3); Neutrophils % 43.2 % (37.0-80.0); Platelet Count 286 K/mm3 (142-424); Red Blood Count 4.84 M/mm3 (4.20-5.40); Red Cell Distribution Width 15.5 % (11.5-17.5); White Blood Count 13.8 K/mm3 (4.8-10.8)
[2022-07-29 22:12] LABS: Alanine Aminotransferase 16 U/L (12-78); Albumin Level 4.1 g/dl (3.5-5.0); Albumin/Globulin Ratio 1.4 (1.1-1.8); Alkaline Phosphatase 68 U/L (38-126); Anion Gap 8.7 mEq/L (5-15); Aspartate Amino Transferase 28 U/L (14-36); Bilirubin,Total 0.4 mg/dl (0.2-1.3); Blood Urea Nitrogen 19 mg/dl (7-17); Calcium 9.5 mg/dl (8.4-10.2); Carbon Dioxide 31 mmol/L (22.0-30.0); Chloride 102 mmol/L (98-107); Creatinine Clearance Estimated 43 mL/min (50-200); Estimated Glomerular Filt Rate 70 ml/min (>60); GFR (African American) 85 ML/MIN (>60); Glucose 104 mg/dl (74-100); Potassium 3.7 mmoL/L (3.5-5.1); Sodium 138 mmol/L (136-145); Total Protein,Serum 7.1 g/dl (6.3-8.2)
[2022-07-29 22:21] LABS: NT Pro Brain Natriuretic Pep. 117 pg/mL (0-125)
[2022-07-29 22:30] VITALS: BP 125/65; PULSE 77; O2SAT 97
[2022-07-29 22:33] LABS: Erythrocyte Sedimentation Rate 15 mm/hr (0-30)
[2022-07-29 22:42] LABS: Coronavirus 19, PCR Not Detected (NotDetected); Influenza A, PCR Not Detected (NotDetected); Influenza B, PCR Not Detected (NotDetected)
[2022-07-29 23:00] VITALS: BP 124/57; PULSE 78; O2SAT 96
[2022-07-29 23:10] LABS: Troponin I < 0.01 ng/ml (0.00-0.034)
[2022-07-29 23:30] VITALS: BP 125/62; PULSE 66; O2SAT 94
[2022-07-29 23:37] LABS: Lipase 120 U/L (23-300)
[2022-07-30] VITALS: BP 130/59; PULSE 78; O2SAT 93
[2022-07-30 00:30] VITALS: BP 139/69; PULSE 81; O2SAT 94
[2022-07-30 01:01] LABS: Microscopic, Urine URINE MICROSCOPIC (MICROSCOPIC)
[2022-07-30 01:07] LABS: Appearance,Urine CLEAR (Clear); Bilirubin,Urine Negative (Negative); Blood, Urine TRACE-I (Negative); Color,Urine YELLOW (Yellow); Glucose,Urine (UA) Negative (Negative); Ketones,Urine Negative (Negative); Leukocyte Esterase,Urine Negative (Negative); Nitrate,Urine Negative (Negative); Protein,Urine Negative (Negative)
[2022-07-30 01:10] LABS: Amorphous Sediment,Urine Trace /lpf
--- NOTE | 2022-07-30 01:30 | ECG_ITS ---
APPROVED REPORT Exam: Resting ECG HR:76 bpm ECG Measurements Heart Rate 76 AXES GA 178 P 75 QRSd 106 QRS 68 QT 371 T -40 QTc 401 Conclusion SINUS RHYTHM MODERATE T-WAVE ABNORMALITY, CONSIDER INFERIOR ISCHEMIA [-0.1+ mV T-WAVE IN II/aVF] ABNORMAL ECG UNCONFIRMED REPORT Electronically signed by : Romulo Flores MD 07/30/2022 19:23:48
[2022-07-30 01:51] LABS: Troponin I < 0.01 ng/ml (0.00-0.034)
[2022-07-30 02:14] VITALS: BP 134/78; PULSE 77; PULSE 80; RESP 16; TEMP 36.6; O2SAT 96
== END 2022-07-30 02:27 | disposition home or self-care (01) ==
PROVIDERS: Emergency Provider Emergency Medicine; PCP Emergency Medicine
DX: R07.89 Other chest pain (principal); J44.9 Chronic obstructive pulmonary disease, unspecified; F17.210 Nicotine dependence, cigarettes, uncomplicated; Z86.73 Personal history of transient ischemic attack (TIA), and cerebral infarction without residual deficits; Z20.822 Contact with and (suspected) exposure to COVID-19
CPT/HCPCS: 71046; 71275; 80053; 81001; 83690; 83880; 84484; 85025; 85651; 93005; 96374; 99285; C9803; Q9967; U0003; U0005

== ENCOUNTER → 2022-08-01 14:56 | Outpatient (POV) | payer MEDICARE, MEDICAID, SELFPAY | PROVIDERS: Visit Provider Specialist/Technologist | DX: Z00.00 Encounter for general adult medical examination without abnormal findings (principal) ==

== ENCOUNTER → 2022-08-09 12:07 | Outpatient (CLI) | payer MEDICARE, MEDICAID, SELFPAY ==
--- NOTE | 2022-08-09 12:07 | NM_ITS ---
APPROVED REPORT Exam: Nuclear Stress Test Indication: Chest pain, SOB, Fatigue, Tobacco use Patient Location: Outpatient Stress Tech: Belgica Sung IN Tech:FARZANA Kapoor RT(R)(N) Ht: 5 ft 3 in Wt: 118 lbs Bra Size: 34B HR: 50 bpm BP: 146/84 mmHg BSA: 1.54 m2 TID: 1.19 BMI: 20.9 History: Chest pain, SOB, Fatigue, Tobacco use Procedure: Patient received a 0.4 mg of intravenous Lexiscan, resting heart rate 50 bpm, resting blood pressure 146/84 mmHg, with Lexiscan maximum heart rate achived was 84 bpm which is Less than 85 % of the maximum predicted heart rate and blood pressure was 160/67 mmHg. With Lexiscan, patient denied any complaint of chest pain. Electrocardiogram Resting electrocardiogram shows sinus rhythm, with Lexiscan there is less than 1.[address] segment depression noted from the baseline EKG. The EKG portion of the Lexiscan is nondiagnostic. Cardiac Stress and Resting SPECT Images: Cardiac Stress and Resting SPECT images were obtained using technetium 99m Myoview 32.4 mCi stress and 10.58 mCi at rest. Gated SPECT for analysis of segmental wall motion and calculation of the ejection fraction also done. Cardiac stress and rest respectively show uniform myocardial activity without segmental perfusion abnormality, computer derived ejection fraction is 52% with no regional wall motion abnormality, right ventricle is mildly enlarged with normal contractility. Conclusion: 1. The EKG portion of the Lexiscan is nondiagnostic. 2. No scintigraphic evidence of reversible ischemia seen, computer derived ejection fraction is 52% with no regional wall motion abnormality, right ventricle is mildly enlarged with normal contractility. 3. Normal Lexiscan Myoview study. Electronically signed by : Alex Barroso MD 08/10/2022 12:58:27
--- NOTE | 2022-08-09 13:34 | CA_ITS ---
APPROVED REPORT EXAM: Comprehensive 2D, Doppler, and color-flow Echocardiogram Government Affairs Fellow: Isela Little, RCS, RVS Ht: 5 ft 0 in Wt: 119lbs BSA: 1.50 BP: 122/62 mmHg Indications: smoker, soa, atypical cp, muscle spasms 2D Dimensions Aortic Root 2.39 cm LA Volume 43.30 mL Left Atrium 2.89 cm LA Volume Index 28.30 mL/m2 (M/F) 16-34 LVOT 2.03 cm (M/F) 1.5-2.5 M-Mode Dimensions RVDd 1.84 cm (0.9-2.6) LA Diam 3.33 cm (1.9-4.0) LVDd 4.66 cm (3.5-5.7) Ao Diam 2.52 cm (2.0-3.7) LVDs 2.88 cm (3.5-5.7) IVSd 0.80 cm (0.6-1.1) PWd 0.70 cm (0.6-1.1) EF (Teich) 68.40% EPSs 0.27 cm FS 38.20% EDV (Teich) 100.30 mL TAPSE 2.30 (<1.7) ESV (Teich) 31.70 mL LV Diastology E Decel Time 247.00 (160-240 msec) E/A Ratio 1.22 MED E' 8.20 (< 7 cm/sec) MED A' 8.60 cm/s E'/MED E' Ratio 10.63 (>14) LAT E' 8.40 (<10 cm/sec) LAT A' 9.20 cm/s E/LAT E' Ratio 10.38 (>14) Aortic Valve LVOT Max 104.00 (70-110 cm/s) LVOT VTI 24.97 cm AoV Peak Darnell. 145.00 (50-130 cm/s) AO Peak GR. 8.40 mmHg AO Mean GR. 4.20 (<5 mmHg) AO VTI 33.38 (18-25 cm) SUHA (VTI) 2.42 (2.5-4.5 cm2) Mitral Valve MV A Velocity 71.00 (40-130 cm/s) E/A Ratio 1.22 MV Decel. Time 247.00 (160-240 ms) MV PHT 73.00 ms Pulmonary Valve PV Peak Velocity 56.00 (50-150 cm/s) Tricuspid Valve TR P. Velocity 212.00 cm/s RAP Estimate 10.00 mmHg RVSP 28.00 mmHg Left Ventricle Left atrium is mildly enlarged, left ventricle is normal size, estimated ejection fraction 55% with no regional wall motion abnormality, diastolic parameters are inconclusive. Right Ventricle Right atrium and right ventricle are mildly enlarged with normal contractility. Aortic Valve Aortic valve is minimally thickened and fibrosed there is no aortic stenosis or aortic insufficiency. Mitral Valve Mitral valve is grossly normal, there is no mitral stenosis, there is trace mitral regurgitation. Tricuspid Valve Tricuspid valve grossly normal, there is trace tricuspid regurgitation, tricuspid regurgitation jet velocity is inadequate for calculation of the right ventricular systolic pressure. Pulmonic Valve Pulmonic valve is poorly visualized. Great Vessels Aortic root is normal size. Inferior vena cava is normal size with normal inspiratory collapse. Pericardium No significant pericardial effusion noted. Conclusion 1. Mild biatrial enlargement, normal left ventricular size, estimated ejection fraction 55% with no regional wall motion abnormality, diastolic parameters are inconclusive. 2. Mildly enlarged right ventricle with normal contractility. 3. Trace mitral and tricuspid regurgitation. 4. No significant pericardial effusion noted. 5. Inferior vena cava is normal size with normal inspiratory collapse. Electronically signed by : Alex Barroso MD 08/10/2022 15:16:43
--- NOTE | 2022-08-09 14:21 | CA_ITS ---
APPROVED REPORT Exam: Pharmacologic Technologist: Belgica Rangel, Ht: 5 ft 0 in Wt: 119 lbs BSA: 1.50 m2 HR: 50 bpm BP: 146/84 mmHg Medical History Medications: Aspirin,,,,, Metoprolol,,,,, Atorvastatin,,,,, Albuterol,,,,, Ibuprofen,,,,, Esomeprazole,,,,, DePakote,,,,, Trazodone,,,,, ANoro,,,,, AJOVY,,,,, Stress Test Details Test: LEXISCAN Reason for pharmacologic stress test: physical limitation. HR Resting HR: 50 bpm Max Heart Rate (APMHR): 147.083918 bpm Max HR Achieved: 84 bpm Target HR (85% APMHR): 124.431784 bpm % of APMHR: 57.14 Recovery HR: 57 bpm BP Resting BP: 146/84 mmHg Max BP: 160/67 mmHg Recovery BP: 140.0/56.0 mmHg ECG Resting ECG: Marked sinus rajendra, otherwise normal Clinical Exercise duration: 04:01 min Highest Stage Achieved: Exercise capacity: 1.0 METs Stress ECG Conclusion Symptoms: Chest thightness, head discomfort. Arrhythmias/Ectopy: None ST-T Changes: No significant changes. Conclusion: Unremarkable Lexiscan stress. Myoview images reported separately. Test Summary REST . . . . . . . Resting REST 07:38 . . 50 . 146/ 84 . . Stage 1 01:00 . . 79 . . . . Stage 2 01:00 . . 75 . 160/ 67 . . Stage 3 01:00 . . 64 . 141/ 57 . . Stage 4 01:00 . . 61 . 129/ 60 . . Stage 4 01:01 . . 60 . 129/ 60 . Stop exercise at 04:01 RECOVERY 01:00 . . 58 . . . . RECOVERY 02:00 . . 56 . 136/ 59 . . RECOVERY 03:00 . . 56 . 136/ 59 . . RECOVERY 03:25 . . 58 . 140/ 56 . . Electronically signed by : Alex Barroso MD 08/10/2022 12:55:26
== END ==
LOC: RAD 12:07
PROVIDERS: PCP Emergency Medicine; Visit Provider Nurse Practitioner
DX: I10 Essential (primary) hypertension (principal); I20.0 Unstable angina; I63.332 Cerebral infarction due to thrombosis of left posterior cerebral artery; I65.29 Occlusion and stenosis of unspecified carotid artery; R06.09 Other forms of dyspnea; R07.9 Chest pain, unspecified; Z72.0 Tobacco use
CPT/HCPCS: 78452; 93017; 93306; A9502; J2785

== ENCOUNTER → 2022-08-13 13:53 | Outpatient (CLI) | payer MEDICARE, MEDICAID, SELFPAY ==
--- NOTE | 2022-08-13 13:54 | CA_ITS ---
FINAL REPORT TECHNIQUE: Stone scale, color and spectral doppler images of the bilateral carotid arteries were obtained. CLINICAL HISTORY: CAROTID BRUITS,SMOKER FINDINGS: Peak systolic velocity in the right internal carotid artery is 83 cm/sec. The internal carotid to common carotid artery ratio is 1.5. There is mild plaque formation. The right vertebral artery is normal in direction. Peak systolic velocity in the left internal carotid artery is 92 cm/sec. The internal carotid to common carotid artery ratio is 1.5. There is mild plaque formation. The left vertebral artery is normal in direction. IMPRESSION: Less than 50% bilateral carotid artery stenosis. Normal peak systolic velocities and normal internal to common carotid artery ratios bilaterally. Reviewed, Interpreted and Dictated by Amie Sparks MD Transcribed by Ahsan Reid Authenticated and . [facility]
== END ==
PROVIDERS: PCP Emergency Medicine; Visit Provider Otolaryngology
DX: I63.332 Cerebral infarction due to thrombosis of left posterior cerebral artery (principal)
CPT/HCPCS: 93880

== ENCOUNTER → 2022-08-23 13:38 | Outpatient (CLI) | payer MEDICARE, MEDICAID, SELFPAY ==
[2022-08-23 19:20] LABS: Valproic Acid, (Depakene) 48.5 ug/ml (50-100)
== END ==
PROVIDERS: PCP Emergency Medicine; Visit Provider Specialist
DX: G43.909 Migraine, unspecified, not intractable, without status migrainosus (principal); I67.1 Cerebral aneurysm, nonruptured
CPT/HCPCS: 36415; 80164

== ENCOUNTER → 2022-09-05 09:41 | Outpatient (CLI) | payer MEDICARE, MEDICAID, SELFPAY ==
[2022-09-05 10:20] VITALS: PULSE 79; PULSE 82
== END ==
PROVIDERS: PCP Emergency Medicine; Visit Provider Internal Medicine Pulmonary Disease
DX: R06.02 Shortness of breath (principal)
CPT/HCPCS: 94060; 94640

== ENCOUNTER → 2022-10-11 10:16 | Outpatient (CLI) | payer MEDICARE, MEDICAID, SELFPAY ==
--- NOTE | 2022-10-11 10:16 | MM_ITS ---
PROCEDURE INFORMATION: Exam: MG Bilateral Screening 3D Mammography Exam date and time: 10/11/2022 10:16 AM Age: 72 years old Clinical indication: Screening. No family history of breast cancer. TECHNIQUE: Imaging protocol: Bilateral Screening tomosynthesis and 2D mammography including computer-aided detection (CAD) when performed. Limited positioning related to mobility impairment, particularly in relation to left shoulder surgeries. COMPARISON: 1. MG MM DIG SCREENING MAMM BI W/CAD 12/18/2019 10:17 AM 2. MG DMSB DIG MAMM-SCREEN JOSUE W/CAD 01/18/2017 3:16 PM 3. MG DIGMAMMS MAMMOGRAM SCREEN-SOLAR INSTALLER TECHNICIAN N/C 07/24/2007 3:34 PM 4. MG DIGMAMMS MAMMOGRAM SCREEN-SOLAR INSTALLER TECHNICIAN N/C 05/10/2004 3:34 PM FINDINGS: MAMMOGRAPHY: Breast composition: The breasts are heterogeneously dense, which may obscure small masses. Mass: None. Architectural distortion: None. Calcifications: No suspicious calcifications. Asymmetric density: None. Skin thickening: None. Axillary adenopathy: None. IMPRESSION: No mammographic evidence of malignancy. Annual screening is recommended unless otherwise clinically indicated. ASSESSMENT: BI-RADS Category 1: Negative
== END ==
PROVIDERS: PCP Emergency Medicine; Visit Provider Emergency Medicine
DX: Z12.31 Encounter for screening mammogram for malignant neoplasm of breast (principal)
CPT/HCPCS: 77063; 77067

== ENCOUNTER → 2022-11-07 14:11 | Outpatient (CLI) | payer MEDICARE, MEDICAID, SELFPAY | PROVIDERS: PCP Emergency Medicine; Visit Provider Emergency Medicine | DX: M54.2 Cervicalgia (principal) ==

== ENCOUNTER → 2022-11-22 12:24 | Outpatient (CLI) | payer MEDICARE, MEDICAID, SELFPAY ==
--- NOTE | 2022-11-22 12:48 | MR_ITS ---
FINAL REPORT CLINICAL HISTORY: neck pain. left arm shaking. left sided facial numbness. neck pain worse on left side. COMPARISON: None FINDINGS: Multi planar MR imaging was obtained of the cervical spine. There is abnormal decreased signal throughout the cervical discs. The vertebrae are of normal height. There is no malalignment. The cervical cord demonstrates normal signal and configuration. C2-C3: There is no evidence of significant disc bulge or protrusion. There is no significant facet hypertrophy. C3-C4: There is no evidence of significant disc bulge or protrusion. There is no significant facet hypertrophy. C4-C5: Mild disc bulge. Neural foramen are adequately patent. C5-C6: Midline and right paracentral disc protrusion. Mild compromise of the right side of the spinal canal. High-grade right C6 neural foraminal narrowing. C6-C7: Diffuse disc bulge. Endplate hypertrophy eccentric to the right. High-grade right neural foraminal narrowing. C7-T1: There is no evidence of significant disc bulge or protrusion. There is no significant facet hypertrophy. IMPRESSION: Posterolateral protrusion C5-6 and C6-7 with endplate hypertrophy and high-grade right neural foraminal narrowing Reviewed, Interpreted and Dictated by Lul Patton MD Transcribed by Jennifer Mullen Authenticated and [facility]
== END ==
LOC: RAD 12:25
PROVIDERS: PCP Emergency Medicine; Visit Provider Emergency Medicine
DX: M54.2 Cervicalgia (principal)
CPT/HCPCS: 72141; 76376

== ENCOUNTER 2022-12-04 11:29 | Day surgery (SDC) | payer MEDICARE, MEDICAID, SELFPAY ==
[2022-12-03 11:53] VITALS: BMI 20.9
[2022-12-04 11:51] VITALS: BP 133/71; PULSE 93; RESP 18; TEMP 36.7; O2SAT 97
--- NOTE | 2022-12-04 12:55 | HMH.SCOPE ---
Procedure: Date: 12/04/22 Patient Date of :: 1950 Procedure Performed:: Colonoscopy with polypectomy by means other than snare Indications:: History of colon polyps Performing Provider:: Kev Feldman MD Referring Provider:: . Sedation:: Monitored anesthesia care Procedure:: After informed consent was obtained the patient was taken to the endoscopy suite. Sedation ensued after the patient was transferred to the left lateral decubitus position. Pulse, blood pressure, and oxygen saturation were monitored throughout the procedure. Digital rectal exam revealed no significant abnormality. The colonoscope was placed in position. The entire colon was evaluated. The colonoscope was carefully removed and the patient was transferred to recovery in stable condition. Please see findings and specimens below for detail. Findings:: Bowel preparation moderate Hemorrhoidal cushions Significant tortuosity and spasticity (most pronounced in sigmoid) Scattered diverticulosis Small polyp at 50 cm Specimens:: Polyp at 50 cm (cold biopsy forceps) Recommendations:: Timing of repeat colonoscopy is pending pathology but will likely be between 3-5 years Complications:: No immediate Estimated blood obtained (mL): 1
[2022-12-04 13:07] VITALS: O2SAT 97
[2022-12-04 13:58] VITALS: BP 82/40; PULSE 72; RESP 14; TEMP 36.4; O2SAT 93
[2022-12-04 14:08] VITALS: BP 117/45; PULSE 71; RESP 16; O2SAT 96
[2022-12-04 14:18] VITALS: BP 104/48; PULSE 80; RESP 18; O2SAT 97
[2022-12-04 14:28] VITALS: BP 103/52; PULSE 81; RESP 18; TEMP 36.6; O2SAT 97
== END 2022-12-04 14:30 | disposition home or self-care (01) ==
PROVIDERS: PCP Emergency Medicine; Visit Provider Surgery
PROC: 0DJD8ZZ Inspection of Lower Intestinal Tract, Via Natural or Artificial Opening Endoscopic (ICD-10-PCS; principal; 2022-12-04 12:30)
DX: Z12.11 Encounter for screening for malignant neoplasm of colon (principal); D12.5 Benign neoplasm of sigmoid colon; F17.210 Nicotine dependence, cigarettes, uncomplicated; K57.30 Diverticulosis of large intestine without perforation or abscess without bleeding; Z86.010 Personal history of colon polyps; Z79.899 Other long term (current) drug therapy
CPT/HCPCS: 45380; J2704

== ENCOUNTER → 2022-12-14 11:18 | Outpatient (POV) | payer MEDICARE, MEDICAID, SELFPAY ==
[2022-12-14 12:24] VITALS: BP 139/95; PULSE 65; RESP 18; O2SAT 96; BMI 23.0
--- NOTE | 2022-12-14 12:41 | EXP.PAIN.OV ---
HPI Data of Consult Patient: new to practice Consult date: 12/14/22 Requesting Physician: Harshad Morales CRNA Primary Care Provider: Gama Gil MD Consult Narrative Reason for consult: Cervical neck pain. Left shoulder and arm radicular symptoms. History of present illness: Ms. Hernandez is a 72 year old female who comes our clinic today for initial evaluation regarding chronic cervical neck pain as well as left shoulder and arm radicular symptoms. She rates her pain 10/10. Patient has left shoulder rotator cuff repair in 2019. She is continue to have pain with limited range of motion in the left shoulder. Patient complains the posterior cervical neck pain extends down the left trapezius muscle into the left arm. She complains of numb fingers on the left at times. Upon examination patient has good strength in the left arm. 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 Patient currently taking NSAIDs for the pain. Patient has tried and failed physical therapy within the last year. She continues with a home exercise program to help with range of motion of the left shoulder. However, she continues having pain. Her Chris report #[id number] has been reviewed and appropriate. Cervical MRI shows multilevel cervical degenerative disc C4-5 through C6-7. CC: Harshad Morales CRNA [facility] Disclaimer: The information contained in this section may have been updated after the patient was seen, as this information can be updated by other users. Medical History Abnormal computerized axial tomography of chest Blurry vision COPD (chronic obstructive pulmonary disease) Cryptogenic stroke Currently on best medical therapy. Asymptomatic Dyspnea Dyspnea on exertion Migraine Pulmonary nodule, right Screening for lung cancer Tobacco abuse counseling Tobacco abuse disorder Surgical History History of appendectomy History of cardiac cath History of colonoscopy Hx of cholecystectomy Family History Other Coronary artery disease Heart attack Social History (Updated 12/14/22 @ 12:26 by Nori Leahy RN) Smoking Status: Current every day smoker tobacco type: cigarettes packs per day: 1 alcohol intake: former substance use type: denies use current occupational status: retired Travel in the last 8 weeks: None household members: family housing: apartment number of children: 2 current occupational exposures/hazards: No caffeine: Yes Meds Home Medications and Allergies Home Medications Medication Instructions Recorded Confirmed Type ibuprofen 400 mg tablet 400 mg PO Q8H PRN pain #30 tabs 01/12/22 12/12/22 Rx albuterol sulfate 90 mcg/actuation 2 inh inhalation QID PRN shortness 03/07/22 12/12/22 Rx aerosol inhaler of breath or wheezing 90 days #8.5 grams fremanezumab-vfrm 225 mg/1.5 mL 675 mg SQ [id number] . 05/15/22 12/12/22 History subcutaneous auto-injector (Ajovy) aspirin 81 mg tablet,delayed 81 mg PO DAILY heart healthly 12/04/22 12/12/22 History release atorvastatin 40 mg tablet 40 mg PO DAILY Cholesterol 12/04/22 12/12/22 History metoprolol succinate 25 mg 25 mg PO DAILY hr 12/04/22 12/12/22 History tablet,extended release 24 hr umeclidinium 62.5 mcg-vilanterol 1 inh inhalation DAILY COPD 12/04/22 12/12/22 History 25 mcg/actuation powdr for inhalation (Anoro Ellipta) New Prescriptions to Start Prescriptions: Allergies Allergy/AdvReac Type Severity Reaction Status Date / Time chlorzoxazone Allergy Unknown COULDN'T Verified 12/12/22 13:41 [From SHIRADonn AVERY] MOVE Penicillins [PENICILLINS] Allergy Unknown Verified 12/12/22 13:41 Objective Vital signs: Pulse Resp BP Pulse Ox 65 18 139/95 H 96 12/14/22 12:24 12/14/22 12:24 12/14/22 12:24 12/14/22 12:2
== END ==
PROVIDERS: PCP Emergency Medicine; Visit Provider Nurse Anesthetist, Certified Registered
DX: M50.30 Other cervical disc degeneration, unspecified cervical region (principal); M47.812 Spondylosis without myelopathy or radiculopathy, cervical region
CPT/HCPCS: 99202; G0463

== ENCOUNTER 2023-01-01 12:45 | Day surgery (SDC) | payer MEDICARE, MEDICAID, SELFPAY ==
[2023-01-01 13:05] VITALS: BP 122/54; PULSE 71; RESP 18; TEMP 36.2; O2SAT 97; BMI 20.9
[2023-01-01 13:16] VITALS: BP 137/62; PULSE 75; RESP 18; O2SAT 96
[2023-01-01 13:17] VITALS: BP 137/62; PULSE 75; RESP 20; O2SAT 96
--- NOTE | 2023-01-01 13:18 | P.PCN_ITS ---
Procedure Date: 01/01/23 Time: 13:15 Anesthesiologist:: Harshad Morales CRNA Complications:: None Pre-procedure Diagnosis:: Degenerative disc cervical spine multilevels. Cervical radiculopathy. Post-procedure Diagnosis:: Same. Indications for Procedure:: Patient is a very pleasant 72-year-old female that comes our clinic today for cervical epidural steroid injection. Patient reports cervical neck pain as well as bilateral arm radicular symptoms. She rates her pain 7/10. Procedure Details:: Procedure:Cervical epidural steroid injection Informed consent was obtained and the risks and benefits of the procedure were explained to the patient. The patient was taken to the procedure room and noninvasive monitors placed, including noninvasive blood pressure cuff and pulse oximeter. The neck was prepped using Chloraprep as a cleansing solution. The C6- C7 interspace was viewed using fluroscopy. The skin and subcutaneous tissues were anesthetized using lidocaine 1.5% and a 25-gauge needle. After this an 18- gauge Touhy epidural needle was placed into the C6-C7 interspace under fluroscopy guidance and advanced using loss of resistance to air until the epidural space was encountered. After confirmation of needle placement in the epidural space using contrast dye, a solution containing normal saline, 2 mL and Depo-Medrol 80 mg was incrementally injected into the cervical epidural space.~ The patient tolerated the procedure well with no complications. The patient was observed in the Pain Clinic and then discharged home neurologically intact. Plan and Disposition:: Patient was discharged without incident.
[2023-01-01 13:20] VITALS: BP 131/52; PULSE 68; RESP 18; O2SAT 97
== END 2023-01-01 13:20 | disposition home or self-care (01) ==
PROVIDERS: PCP Emergency Medicine; Visit Provider Nurse Anesthetist, Certified Registered
DX: M50.10 Cervical disc disorder with radiculopathy, unspecified cervical region (principal)
CPT/HCPCS: 62321; J1040; Q9966

== ENCOUNTER → 2023-01-17 14:36 | Outpatient (POV) | payer MEDICARE, MEDICAID, SELFPAY ==
[2023-01-17 15:02] VITALS: BP 132/57; PULSE 70; RESP 18; O2SAT 97; BMI 20.9
--- NOTE | 2023-01-17 15:08 | EXP.PAIN.SOA ---
[facility] Pain Management SOAP Note Subjective:: Patient is a pleasant 72-year-old female who presents today for follow-up of cervical epidural steroid injection C6-C7 on 01/01/2023. We are currently treating the patient for degenerative disc disease of cervical spine with cervical radiculopathy symptoms. Today she states that she had at least 50% improvement following this injection however only lasting approximately 2 days. Patient states during that time she was able to increase her activity with decreased pain symptoms as well as she felt like she had increased range of motion of her neck and upper extremities. Patient does rate her pain a 4 out of 10 and feels like she is back at her baseline today. Patient does describe her pain as an aching, throbbing sensation that is worse with increased activity. Patient did previously have a left rotator cuff repair in 2019 that she continues to have chronic pain at. Patient does have numbness and tingling into her bilateral fingers. She does also states the pain and numbness does affect her ability to perform activities of daily living such as cooking and cleaning. Patient has tried physical therapy within the last year however it did not provide any additional relief. Patient is not on any scheduled medications. Her Chris is [id number]. Its been reviewed and appropriate. Review of Systems: General: No recent weight changes, no fever, no sleep disturbances Respiratory: No cough, no shortness of air, no recurring pulmonary infections Cardiovascular/peripheral vascular: No chest pain, no palpitations, no edema, no shortness of breath Gastrointestinal: No new onset incontinence, normal bowel movements reported Genitourinary: No new onset incontinence Musculoskeletal: Neck pain, bilateral upper arm pain/numbness Psychiatric: [Normal mood/affect] Neurological: [Denies weakness in extremities], [denies balance issues] Objective:: Physical Exam: General: Alert and oriented x3, no acute distress, pleasant and cooperative Lungs: Respirations even and unlabored, symmetrical chest expansion Eyes: PERRL Musculoskeletal: Flexion and extension of cervical [spine] somewhat guarded secondary to pain, [antalgic gait noted] Neurological: Speech clear, no gross sensory deficit Assessment:: Degenerative disc disease of cervical spine multilevels with cervical radiculopathy symptoms, neck pain Plan:: Patient is experiencing worsening pain in her neck with radiating symptoms into her upper extremities. Patient had limited range of motion of her cervical spine during today's visit. I have discussed with the patient that she may benefit from repeat cervical epidural steroid injection. Patient did previously get 50% improvement following her initial injection. Risk and benefits of this procedure were explained to the patient and she would like to proceed forward with this plan of care. Patient has tried and failed conservative therapy such as oral medications, heat and ice, topicals, physical therapy and at home stretching and exercise for longer than 6 weeks. I will also order the patient compounding cream and baclofen 5 mg twice daily and provide a 2-week supply of this medication. Patient will be scheduled for a KELSY C6-C7. Patient has been instructed to contact the clinic with any concerns before the next appointment. Dr. Glynn has reviewed this note and agrees with this plan of care. This note was dictated using voice recognition software and make contain errors or omissions. [facility] Disclaimer: The information contained in this section may have been updated after the patient was seen, as this information can be updated by other users. Medical History Abnormal computerized axial tomography of chest Blurry vision COPD (chronic obstructive pulmonary disease) Cryptogenic stroke Currently on best medical therapy. Asymptomatic Dyspnea Dyspnea on exertion Migraine
== END | disposition home or self-care (01) ==
PROVIDERS: Visit Provider Nurse Practitioner Family
DX: M50.10 Cervical disc disorder with radiculopathy, unspecified cervical region (principal)
CPT/HCPCS: 99212; G0463

== ENCOUNTER → 2023-02-07 15:14 | Outpatient (CLI) | payer MEDICARE, MEDICAID, SELFPAY ==
--- NOTE | 2023-02-07 15:14 | CT_ITS ---
FINAL REPORT TECHNIQUE: Thin section axial images were obtained through the lungs using a low-dose technique per lung cancer screening protocol. Reconstruction images were obtained using the axial data. Exam was performed using dose reduction technique. CLINICAL HISTORY: Patient is current half pack a day smoker. She has been smoking for 20 years. She has copd. COMPARISON: 07/29/2022 FINDINGS: CTDLvol: 2.9 DLP: 96.38 Current smoker 20 pack year history Lungs: Biapical pleural scarring is once again noted, unchanged. Changes in the lung parenchyma compatible with emphysema remain present. The thyroid nodule noted on multiple prior CTs remains unchanged. The 5 mm left upper lobe nodule noted on prior examinations remains stable in appearance and is best seen on image #15. The 3 mm left lower lobe subpleural nodule best seen on image #48 is likely unchanged from prior exams. There is a new 8 mm ground glass appearing nodule best seen on image #56 in the left lower lobe, new since the prior exam. There is also a new 9 mm right lower lobe ground glass nodule best seen on axial image #48. The more lateral ground glass right lower lobe nodule seen previously remains unchanged. Lymph nodes: No thoracic lymphadenopathy. Mediastinum: Heart size is normal. Pleura/pericardium: There is a new small right pleural effusion present. No pericardial effusion is identified. Other: No acute abnormality in the upper abdomen. IMPRESSION: There are several new ground glass nodules in the lower lobes bilaterally, all subcentimeter. The other previously seen nodules remain unchanged in appearance. Lung RADS: 2 Recommendation: 12-month LDCT follow-up Reviewed, Interpreted and Dictated by Amie Sparks MD Transcribed by Sharon Razo Authenticated and [facility]
== END ==
PROVIDERS: PCP Emergency Medicine; Visit Provider Internal Medicine Pulmonary Disease
DX: Z87.891 Personal history of nicotine dependence (principal); Z12.2 Encounter for screening for malignant neoplasm of respiratory organs
CPT/HCPCS: 71271

== ENCOUNTER 2023-03-12 21:33 | Emergency (ER) | payer MEDICARE, MEDICAID, SELFPAY ==
[2023-03-12 21:35] VITALS: BP 157/103; PULSE 67; RESP 19; O2SAT 97; BMI 20.2
[2023-03-12 22:00] VITALS: BP 164/72; PULSE 74; RESP 18; O2SAT 98
--- NOTE | 2023-03-12 22:17 | CT_ITS ---
PROCEDURE INFORMATION: Exam: CT Abdomen And Pelvis With Contrast Exam date and time: 03/12/2023 11:20 PM Age: 72 years old Clinical indication: Abdominal pain; Localized; Right upper quadrant (ruq); Additional info: Unintended weight loss, ruq abd pain TECHNIQUE: Imaging protocol: Computed tomography of the abdomen and pelvis with contrast. Radiation optimization: All CT scans at this facility use at least one of these dose optimization techniques: automated exposure control; mA and/or kV adjustment per patient size (includes targeted exams where dose is matched to clinical indication); or iterative reconstruction. Contrast material: ISOVUE; Contrast volume: 75 ml; Contrast route: IV; REPORTING DATA: Count of CT and Cardiac NM exams in prior 12 months: This patient has received 2 known CTs and 0 known cardiac nuclear medicine studies in the 12 months prior to the current study. COMPARISON: ABDPELW/O CT ABD PELVIS W/O CONTRAST 12/22/2016 10:44 PM FINDINGS: Liver: Normal. No mass. Gallbladder and bile ducts: The patient is status post cholecystectomy. Pancreas: Normal. No ductal dilation. Spleen: Normal. No splenomegaly. Adrenal glands: Normal. No mass. Kidneys and ureters: There are bilateral simple appearing renal cysts. Stomach and bowel: Unremarkable. No obstruction. No mucosal thickening. Appendix: No evidence of appendicitis. Intraperitoneal space: Unremarkable. No free air. No significant fluid collection. Vasculature: There is atherosclerotic disease of the visualized aorta and its major branch vessels. Lymph nodes: Unremarkable. No enlarged lymph nodes. Urinary bladder: Unremarkable as visualized. Reproductive: Unremarkable as visualized. Bones/joints: There is diffuse degenerative disease of the visualized osseous structures. Soft tissues: Unremarkable. Other findings: Please see the dedicated interpretation of the thorax for findings in that region. IMPRESSION: No acute pathology is identified in the abdomen or pelvis. COMMENTS: Consistent with the [employer]'s Incidental Findings Committee white paper (J Am Nicanor Radiol 2018): Any incidental renal lesion less than 1 cm or classified as too small to characterize, or any incidental cystic renal lesion characterized as simple-appearing, is likely benign. No follow-up imaging is recommended for these lesions per consensus recommendations based on imaging criteria.
--- NOTE | 2023-03-12 22:17 | CT_ITS ---
PROCEDURE INFORMATION: Exam: CT Chest With Contrast; Diagnostic Exam date and time: 03/12/2023 11:20 PM Age: 72 years old Clinical indication: Other: Ruq pain; Additional info: Unintended weight loss, right upper quadrant pain TECHNIQUE: Imaging protocol: Diagnostic computed tomography of the chest with contrast. Radiation optimization: All CT scans at this facility use at least one of these dose optimization techniques: automated exposure control; mA and/or kV adjustment per patient size (includes targeted exams where dose is matched to clinical indication); or iterative reconstruction. Contrast material: ISOVUE; Contrast volume: 75 ml; Contrast route: IV; REPORTING DATA: Count of CT and Cardiac NM exams in prior 12 months: This patient has received 2 known CTs and 0 known cardiac nuclear medicine studies in the 12 months prior to the current study. COMPARISON: CT LUNG SCREENING 02/07/2023 3:26 PM FINDINGS: Thyroid: There is heterogeneity of the thyroid gland for which nonemergent thyroid ultrasound should be considered. Lungs: There is some chronic cystic changes within the right middle lobe. There is scattered areas of parenchymal scarring throughout the lung. There is a lingular calcified granuloma. There is scarring at the lung apices, unchanged from prior. Pleural spaces: Unremarkable. No pneumothorax. No pleural effusion. Heart: Unremarkable. No cardiomegaly. No pericardial effusion. Coronary arteries: There is moderate coronary atherosclerotic disease/calcification. Lymph nodes: Unremarkable. No enlarged lymph nodes. Vasculature: Unremarkable. No aortic aneurysm. Intraperitoneal space: Please see the dedicated interpretation of abdomen and pelvis for findings in that region. Bones/joints: Unremarkable. No acute fracture. Soft tissues: Unremarkable. Other findings: There is moderate emphysema. IMPRESSION: 1. There is heterogeneity of the thyroid gland for which nonemergent thyroid ultrasound should be considered. 2. No acute findings.
--- NOTE | 2023-03-12 22:17 | XR_ITS ---
PROCEDURE INFORMATION: Exam: XR Chest Exam date and time: 03/12/2023 11:20 PM Age: 72 years old Clinical indication: Shortness of breath; Additional info: SOA, weak TECHNIQUE: Imaging protocol: Radiologic exam of the chest. Views: 1 view. COMPARISON: CT LUNG SCREENING 02/07/2023 3:26 PM FINDINGS: Lungs: Unremarkable. No consolidation. Pleural spaces: Unremarkable. No pleural effusion. No pneumothorax. Heart/Mediastinum: Unremarkable. No cardiomegaly. Vasculature: There are calcifications of the aortic arch. Bones/joints: Unremarkable. IMPRESSION: No dense parenchymal consolidation, pleural effusion, or pneumothorax.
[2023-03-12 22:27] LABS: Basophils # 0.1 K/mm3 (0-0.2); Basophils % 0.5 % (0.1-2.0); Eosinophils # 0.2 K/mm3 (0.0-0.4); Eosinophils % 1.5 % (0.1-12.0); Hematocrit 46.4 % (37.0-47.0); Hemoglobin 14.9 g/dL (12.2-16.2); Lymphocytes # 2.8 K/mm3 (0.7-4.5); Lymphocytes % 27.3 % (10-50); Mean Corpuscular HGB Conc 32.2 g/dL (31.8-35.4); Mean Corpuscular Hemoglobin 28.2 pg (27.0-31.2); Mean Corpuscular Volume 87.7 fl (81-99); Mean Platelet Volume 8.1 fl (7.4-10.4); Monocytes # 0.5 K/mm3 (0.1-1.0); Neutrophils # 6.7 K/mm3 (1.8-7.8); Neutrophils % 65.7 % (37.0-80.0); Platelet Count 260 K/mm3 (142-424); Red Blood Count 5.29 M/mm3 (4.20-5.40); Red Cell Distribution Width 15.1 % (11.5-17.5); White Blood Count 10.2 K/mm3 (4.8-10.8)
[2023-03-12 22:29] LABS: Microscopic, Urine URINE MICROSCOPIC (MICROSCOPIC)
[2023-03-12 22:31] LABS: Alanine Aminotransferase 17 U/L (12-78); Albumin Level 4.6 g/dl (3.5-5.0); Albumin/Globulin Ratio 1.1 (1.1-1.8); Alkaline Phosphatase 77 U/L (38-126); Anion Gap 13.8 mEq/L (5-15); Aspartate Amino Transferase 31 U/L (14-36); Bilirubin,Total 0.5 mg/dl (0.2-1.3); Blood Urea Nitrogen 15 mg/dl (7-17); Calcium 10.2 mg/dl (8.4-10.2); Carbon Dioxide 27 mmol/L (22.0-30.0); Chloride 98 mmol/L (98-107); Creatinine Clearance Estimated 41 mL/min (50-200); Estimated Glomerular Filt Rate 82 ml/min (>60); GFR (African American) 99 ML/MIN (>60); Globulin 4.1 g/dL (1.3-3.2); Glucose 101 mg/dl (74-100); Lactic Acid 1.2 mmol/L (0.7-2.1); Lipase 61 U/L (23-300); Potassium 4.8 mmoL/L (3.5-5.1); Sodium 134 mmol/L (136-145); Total Protein,Serum 8.7 g/dl (6.3-8.2)
[2023-03-12 22:37] LABS: Appearance,Urine CLEAR (Clear); Bilirubin,Urine Negative (Negative); Blood, Urine 1+ (Negative); Color,Urine YELLOW (Yellow); Glucose,Urine (UA) Negative (Negative); Ketones,Urine TRACE (Negative); Leukocyte Esterase,Urine Negative (Negative); Nitrate,Urine Negative (Negative); PH,Urine 6.5 (5.0-8.5); Protein,Urine Negative (Negative); Specific Gravity, Urine 1.025 (1.005-1.030)
[2023-03-12 22:41] LABS: NT Pro Brain Natriuretic Pep. 135 pg/mL (0-125)
--- NOTE | 2023-03-12 22:47 | HMH.EDGENADL ---
Discharge Plan Disposition Patient Disposition: Home, Self-Care Condition: Good Prescriptions Prescriptions: New ondansetron HCl 4 mg tablet 4 mg PO Q8H PRN (Reason: nausea and vomiting) 5 Days Qty: 30 0RF No Action ibuprofen 400 mg tablet 400 mg PO Q8H PRN (Reason: pain) Qty: 30 0RF albuterol sulfate 90 mcg/actuation HFA aerosol inhaler 2 inh INHALATION QID PRN (Reason: shortness of breath or wheezing) 90 Days Qty: 8.5 2RF atorvastatin 40 mg tablet 40 mg PO DAILY aspirin 81 mg tablet,delayed release (DR/EC) 81 mg PO DAILY Rx Instructions: TAKE ONE TABLET BY MOUTH ONCE A DAY metoprolol succinate 25 mg tablet extended release 24 hr 25 mg PO DAILY Rx Instructions: TAKE ONE TABLET BY MOUTH ONCE A DAY Anoro Ellipta 62.5-25 mcg/actuation blister with device 1 inh IH DAILY baclofen 5 mg tablet 5 mg PO BID Qty: 28 0RF Referrals Follow up/Referrals: Gama Gil MD [Primary Care Provider] - See instructions Activity Restrictions/Add. Instructions Additional Instructions/Restrictions: Please follow-up with your primary care provider regarding the recent changes in her medication and regarding the abnormal thyroid appearance on CT. Please return to the emergency department if you develop any new or worsening symptoms or become concerned for your health. Please take Zofran as needed for nausea and vomiting. Clinical Impressions Clinical Impression: Weakness, Abnormal imaging of thyroid, Lung nodule seen on imaging study, Nausea & vomiting, Unintended weight loss Discharge ED Provider: Constantino Serrano General Adult HPI <Constantino Serrano MD - Last Filed: 03/12/23 23:58> General Chief complaint: Weakness Stated complaint: nauea, weakness Time Seen by Provider: 03/12/23 21:46 Mode of Arrival: Ambulatory Source of Information: Patient Limitations: No Limitations Description of Symptoms (Recalled from ER Triage Doc. by RN): patient states she feels shakey, continuous nausea x 3 wks, not eating much at all, drinking only coffee when tolerated, pain in right upper gastric area feels like marcia horse History of Present Illness HPI narrative: Is a 72-year-old female with history of hypertension, hyperlipidemia, COPD on 2 L nasal cannula at night, pulmonary nodule presenting with nausea and decreased p.o. intake. Patient states that she has had nausea decreased p.o. intake for about 3 weeks. Has had 6 pound weight loss in that time. Denies fevers or chills, dysuria, hematuria, cough, chest pain, constipation, diarrhea, vomiting, but has been nauseated. Intermittent right upper quadrant pain that does not radiate. Related Data Home Medications Medication Instructions Recorded Confirmed aspirin 81 mg tablet,delayed 81 mg PO DAILY heart healthly 12/04/22 02/14/23 release atorvastatin 40 mg tablet 40 mg PO DAILY Cholesterol 12/04/22 02/14/23 metoprolol succinate 25 mg 25 mg PO DAILY hr 12/04/22 02/14/23 tablet,extended release 24 hr umeclidinium 62.5 mcg-vilanterol 1 inh inhalation DAILY COPD 12/04/22 02/14/23 25 mcg/actuation powdr for inhalation (Anoro Ellipta) Previous Rx's Medication Instructions Recorded ibuprofen 400 mg tablet 400 mg PO Q8H PRN pain #30 tabs 01/12/22 albuterol sulfate 90 mcg/actuation 2 inh inhalation QID PRN shortness 03/07/22 aerosol inhaler of breath or wheezing 90 days #8.5 grams baclofen 5 mg tablet 5 mg PO BID #28 tabs 01/17/23 ondansetron HCl 4 mg tablet 4 mg PO Q8H PRN nausea and 03/13/23 vomiting 5 days #30 tabs Allergies Allergy/AdvReac Type Severity Reaction Status Date / Time chlorzoxazone Allergy Unknown COULDN'T Verified 02/14/23 14:43 [From PARAFON FORTE] MOVE Penicillins [PENICILLINS] Allergy Unknown Verified 02/14/23 14:43 [facility] <Constantino Serrano MD - Last Filed: 03/12/23 23:58> [facility] Disclaimer: The information contained in this section may have been updated after the patient was seen, as
[2023-03-12 22:48] LABS: T4 (Thyroxine) 9.9 ug/dl (5.53-11.0)
--- NOTE | 2023-03-12 22:57 | ECG_ITS ---
APPROVED REPORT Exam: Resting ECG HR:57 bpm ECG Measurements Heart Rate 57 AXES MD 186 P 81 QRSd 106 QRS 46 QT 369 T -3 QTc 364 Conclusion SINUS BRADYCARDIA WITH MARKED SINUS ARRHYTHMIA NONSPECIFIC T-WAVE ABNORMALITY BORDERLINE ECG UNCONFIRMED REPORT Electronically signed by : Romulo Flores MD 03/14/2023 06:49:42
[2023-03-12 23:02] LABS: Thyroid Stimulating Hormone 0.84 uIU/mL (0.465-4.68)
[2023-03-12 23:10] LABS: RBC,Urine Occasional #/hpf (0-3); Squamous Epithelial Cell,Urine Occasional #/hpf (0-5)
[2023-03-13 00:15] VITALS: BP 145/64; PULSE 76; RESP 18; TEMP 36.7; O2SAT 93
== END 2023-03-13 00:15 | disposition home or self-care (01) ==
PROVIDERS: Emergency Provider Emergency Medicine; PCP Emergency Medicine
DX: R11.2 Nausea with vomiting, unspecified (principal); R53.1 Weakness; R63.4 Abnormal weight loss; I10 Essential (primary) hypertension; E78.5 Hyperlipidemia, unspecified; J44.9 Chronic obstructive pulmonary disease, unspecified; F17.210 Nicotine dependence, cigarettes, uncomplicated; R10.11 Right upper quadrant pain; R00.1 Bradycardia, unspecified
CPT/HCPCS: 71045; 71260; 74177; 80053; 81001; 83605; 83690; 83880; 84436; 84443; 85025; 93005; 96361; 96374; 99285; J2405; Q9967

== ENCOUNTER → 2023-03-29 13:07 | Outpatient (CLI) | payer MEDICARE, MEDICAID, SELFPAY ==
[2023-03-29 14:47] LABS: Erythrocyte Sedimentation Rate 14 mm/hr (0-30)
[2023-03-29 15:14] LABS: Valproic Acid, (Depakene) < 10.0 ug/ml (50-100)
[2023-03-29 15:35] LABS: Thyroid Stimulating Hormone 0.26 uIU/mL (0.465-4.68)
[2023-03-29 15:54] LABS: Vitamin B12 584 pg/mL (239-931)
== END ==
PROVIDERS: Specialist; PCP Emergency Medicine; Visit Provider Emergency Medicine
DX: E78.2 Mixed hyperlipidemia (principal); R41.3 Other amnesia
CPT/HCPCS: 36415; 80164; 82607; 84443; 85651

== ENCOUNTER → 2023-04-05 08:30 | Outpatient (CLI) | payer MEDICARE, MEDICAID, SELFPAY ==
--- NOTE | 2023-04-05 08:30 | CA_ITS ---
APPROVED REPORT EXAM: Comprehensive 2D, Doppler, and color-flow Echocardiogram Shell Freezing Machine Operator: Kerry Weston RT(R) Ht: 5 ft 3 in Wt: 114lbs BSA: 1.52 BP: 104/52 mmHg Indications: cerebral infarction, COPD, smoker, pulmonary nodule 2D Dimensions LVOT 1.97 cm (M/F) 1.5-2.5 LVEF (Simons's) 62.10 % F: 54 - 74 LV Volume 60.90 mL F: 46 - 106 LV Volume Index 40.07 mL/m2 F: 29 - 61 LA Volume 20.00 mL LA Volume Index 13.16 mL/m2 (M/F) 16-34 M-Mode Dimensions RVDd 2.62 cm (0.9-2.6) LA Diam 3.09 cm (1.9-4.0) LVDd 3.76 cm (3.5-5.7) Ao Diam 2.56 cm (2.0-3.7) LVDs 2.48 cm (3.5-5.7) IVSd 0.84 cm (0.6-1.1) PWd 0.94 cm (0.6-1.1) EF (Teich) 63.70% FS 34.00% EDV (Teich) 60.40 mL ESV (Teich) 21.90 mL LV Diastology E Decel Time 177.00 (160-240 msec) E/A Ratio 0.8 MED E' 7.30 (< 7 cm/sec) E'/MED E' Ratio 10.70 (>14) LAT E' 6.20 (<10 cm/sec) E/LAT E' Ratio 12.60 (>14) Mitral Valve MV E Max Darnell. 78.00 (40-130 cm/s) MV A Velocity 98.00 (40-130 cm/s) E/A Ratio 0.79 MV Decel. Time 177.00 (160-240 ms) MV PHT 52.00 ms Left Ventricle The left ventricle is normal size. The left ventricular systolic function is normal. The left ventricular ejection fraction is within the normal range. There is normal left ventricular wall thickness. There is normal LV segmental wall motion. The left ventricular diastolic function is normal. LVEF is 60%. Right Ventricle The right ventricle is normal size. The right ventricular systolic function is normal. Atria The left atrium size is normal. The right atrium size is normal. There is no Doppler evidence of interatrial shunt. Aortic Valve The aortic valve was mildly thickened. There is no aortic valvular stenosis. No aortic regurgitation is present. Mitral Valve The mitral valve is mildly thickened. No evidence of mitral valve stenosis. Trace mitral regurgitation. Tricuspid Valve The tricuspid valve leaflets are thin and pliable. Trace tricuspid regurgitation. RVSP is normal. Pulmonic Valve The pulmonary valve is normal in structure. There is trace pulmonic valvular regurgitation. Great Vessels The aortic root is normal in size. The ascending aorta is normal in size. IVC is normal in size and collapses >50% with inspiration. Pericardium There is no pericardial effusion. Other Information Study Quality: Fair Conclusion Normal biventricular systolic function. No significant valvular stenosis or regurgitation. Electronically signed by : Kamini Henriquez, 04/09/2023 20:24:54
--- NOTE | 2023-04-05 12:31 | US_ITS ---
FINAL REPORT TECHNIQUE: Limited sonographic images of the thyroid were obtained. CLINICAL HISTORY: abnormal imaging or thyroid COMPARISON: 03/12/2022 FINDINGS: US THYROID/HEAD OR NECK SOFT TISSUE The right lobe of the thyroid measures 4.9 x 1.7 by 2.4 cm. There is a cystic, solid, isoechoic nodule measuring 19 x 22 x 15 mm, previously measured 24 x 22 x 18 mm. Several other less than 5 mm nodules are seen bilaterally, similar to prior. The left lobe of the thyroid measures 4.0 x 1.3 x 1.2 cm. The isthmus measures 2 mm. IMPRESSION: Slightly improved right thyroid nodule, likely benign. If indicated, additional follow-up in 12 months may be helpful. Reviewed, Interpreted and Dictated by Bong Fraga III, MD Transcribed by Angelita Judd Authenticated and [facility]
== END ==
LOC: RT 08:30
PROVIDERS: PCP Emergency Medicine; Visit Provider Emergency Medicine
DX: I63.332 Cerebral infarction due to thrombosis of left posterior cerebral artery (principal); R42 Dizziness and giddiness; R55 Syncope and collapse; R60.9 Edema, unspecified; R94.31 Abnormal electrocardiogram [ECG] [EKG]; R93.89 Abnormal findings on diagnostic imaging of other specified body structures
CPT/HCPCS: 76536; 93306

== ENCOUNTER → 2023-05-06 15:49 | Outpatient (CLI) | payer MEDICARE, MEDICAID, SELFPAY ==
[2023-05-06 16:15] LABS: Basophils # 0.1 K/mm3 (0-0.2); Basophils % 0.6 % (0.1-2.0); Eosinophils # 0.2 K/mm3 (0.0-0.4); Hematocrit 42.9 % (37.0-47.0); Hemoglobin 14.2 g/dL (12.2-16.2); Lymphocytes # 4.1 K/mm3 (0.7-4.5); Lymphocytes % 33.7 % (10-50); Mean Corpuscular HGB Conc 33.1 g/dL (31.8-35.4); Mean Corpuscular Hemoglobin 29.4 pg (27.0-31.2); Mean Corpuscular Volume 88.9 fl (81-99); Mean Platelet Volume 8.4 fl (7.4-10.4); Monocytes # 0.5 K/mm3 (0.1-1.0); Monocytes % 4.4 % (1.7-9.3); Neutrophils # 7.3 K/mm3 (1.8-7.8); Neutrophils % 59.3 % (37.0-80.0); Platelet Count 314 K/mm3 (142-424); Red Blood Count 4.83 M/mm3 (4.20-5.40); Red Cell Distribution Width 14.6 % (11.5-17.5); White Blood Count 12.3 K/mm3 (4.8-10.8)
[2023-05-06 17:20] LABS: Alanine Aminotransferase 22 U/L (12-78); Albumin Level 4.3 g/dl (3.5-5.0); Alkaline Phosphatase 90 U/L (38-126); Anion Gap 13.2 mEq/L (5-15); Aspartate Amino Transferase 29 U/L (14-36); Bilirubin,Direct 0.2 mg/dl (0.0-0.4); Bilirubin,Indirect 0.6 mg/dL (0.0-0.9); Bilirubin,Total 0.8 mg/dl (0.2-1.3); Bilirubin,Unconjugated 0.6 mg/dL (0.0-1.1); Blood Urea Nitrogen 15 mg/dl (7-17); Calcium 10.4 mg/dl (8.4-10.2); Carbon Dioxide 27 mmol/L (22.0-30.0); Chloride 104 mmol/L (98-107); Chol/HDL Ratio 4.7 (1-3.5); Cholesterol 145 mg/dl (140-200); Estimated Glomerular Filt Rate 98 ml/min (>60); GFR (African American) 118 ML/MIN (>60); Glucose 85 mg/dl (74-100); HDL Cholesterol 31 mg/dl (40-60); Magnesium 1.9 mg/dl (1.6-2.3); Potassium 5.2 mmoL/L (3.5-5.1); Sodium 139 mmol/L (136-145); Total Protein,Serum 7.6 g/dl (6.3-8.2); Triglycerides 120 mg/dl (30-150); VLDL Cholesterol 24 mg/dL (0-40)
[2023-05-06 17:31] LABS: Direct LDL Cholesterol 87.22 mg/dL (100-129)
[2023-05-06 17:36] LABS: Free T4 (Free Thyroxine) 0.94 ng/dl (0.78-2.19)
[2023-05-06 17:50] LABS: Thyroid Stimulating Hormone 0.17 uIU/mL (0.465-4.68)
== END ==
PROVIDERS: PCP Emergency Medicine; Visit Provider Physician Assistant
DX: E78.5 Hyperlipidemia, unspecified (principal); I10 Essential (primary) hypertension; I25.10 Atherosclerotic heart disease of native coronary artery without angina pectoris; I65.29 Occlusion and stenosis of unspecified carotid artery; Z72.0 Tobacco use; Z86.73 Personal history of transient ischemic attack (TIA), and cerebral infarction without residual deficits
CPT/HCPCS: 80048; 80061; 80076; 83735; 84439; 84443; 85025

== ENCOUNTER → 2023-05-15 09:35 | Outpatient (CLI) | payer MEDICARE, MEDICAID, SELFPAY ==
[2023-05-15 11:10] VITALS: PULSE 58; PULSE 59
== END ==
PROVIDERS: PCP Emergency Medicine; Visit Provider Specialist
DX: J44.9 Chronic obstructive pulmonary disease, unspecified (principal); J44.89 Other specified chronic obstructive pulmonary disease; G47.36 Sleep related hypoventilation in conditions classified elsewhere
CPT/HCPCS: 94060; 94618; 94640; 94727; 94729

== ENCOUNTER 2023-05-24 15:04 | Emergency (ER) | payer MEDICARE, MEDICAID, SELFPAY ==
[2023-05-24] VITALS (7 sets, daily range): BP systolic 121–188; BP diastolic 70–103; PULSE 62–73; RESP 16–18; TEMP 36.5; O2SAT 96–99; BMI 20.2
--- NOTE | 2023-05-24 15:23 | CT_ITS ---
FINAL REPORT TECHNIQUE: Thin section axial CT with IV contrast supplemented with multiplanar reconstruction under CT angiogram protocol. This study was performed with techniques to keep radiation doses as low as reasonably achievable (ALARA). Individualized dose reduction techniques using automated exposure control or adjustment of mA and/or kV according to the patient''s size were employed. NASCET criteria was utilized during interpretation. CLINICAL HISTORY: LUE numbness COMPARISON: 08/23/2020 FINDINGS: Aortic arch: Arch shows no significant narrowing. Great vessel origins are widely patent. Right carotid: No significant stenosis is seen of the cervical common or internal carotid artery. There is mild calcified plaque at the carotid bulb. Left carotid: No significant stenosis is seen of the cervical common or internal carotid artery. Mild calcified plaque of the carotid bulb. Vertebral: Left vertebral artery is dominant. No significant stenosis is present. IMPRESSION: No significant stenosis or occlusion. Reviewed, Interpreted and Dictated by Bong Fraga III, MD Transcribed by Jennifer Mullen Authenticated and [facility]
--- NOTE | 2023-05-24 15:23 | CT_ITS ---
FINAL REPORT TECHNIQUE: Thin section axial CT with IV contrast supplemented with multiplanar reconstruction under CT angiogram protocol. 3-D reconstructions were performed. This study was performed with techniques to keep radiation doses as low as reasonably achievable (ALARA). Individualized dose reduction techniques using automated exposure control or adjustment of mA and/or kV according to the patient''s size were employed. CLINICAL HISTORY: LUE numbness COMPARISON: 08/23/2020 FINDINGS: The distal vertebral, basilar and distal internal carotid arteries have an unremarkable appearance. No aneurysm is seen. Major intracranial vessels are patent without significant stenosis. Visualized lung fraser demonstrate moderate emphysema. There is abnormal soft tissue in the bilateral lung apices which is mostly stable and consistent with scar. There are is a new area in the anterior right apex measuring 11 mm and favored to be inflammatory over neoplastic. IMPRESSION: No evidence of significant stenosis or occlusion. New 11 mm area of abnormal soft tissue right anterior apex, favor inflammatory over neoplastic. Recommend chest CT in 2-3 months or PET-CT Reviewed, Interpreted and Dictated by Bong Fraga III, MD Transcribed by Jennifer Mullen Authenticated and [facility]
--- NOTE | 2023-05-24 15:23 | CT_ITS ---
FINAL REPORT CLINICAL HISTORY: LUE numbness COMPARISON: 07/19/2021 FINDINGS: Axial images of the head were obtained without contrast. Coronal reformatted images were also obtained. This study was performed with techniques to keep radiation doses as low as reasonably achievable (ALARA). Individualized dose reduction techniques using automated exposure control or adjustment of mA and/or kV according to the patient's size were employed. There is generalized age-appropriate atrophy. Periventricular low-attenuation areas are seen consistent with mild chronic ischemic changes. Left occipital encephalomalacia is stable. There is no evidence of intracranial hemorrhage or mass. There is no evidence of acute infarct. There is no evidence of shift of the midline structures. No skull abnormality is seen on the bone window images. IMPRESSION: Atrophy and mild periventricular chronic ischemic changes. No acute intracranial abnormality identified. Reviewed, Interpreted and Dictated by Bong Fraga III, MD Transcribed by Jennifer Mullen Authenticated and [facility]
--- NOTE | 2023-05-24 15:26 | PC.NURSE ---
pt to CT via stretcher
[2023-05-24 15:35] LABS: Basophils # 0.1 K/mm3 (0-0.2); Eosinophils # 0.3 K/mm3 (0.0-0.4); Eosinophils % 2.7 % (0.1-12.0); Hematocrit 40.7 % (37.0-47.0); Hemoglobin 13.7 g/dL (12.2-16.2); Lymphocytes # 4.6 K/mm3 (0.7-4.5); Lymphocytes % 43.2 % (10-50); Mean Corpuscular HGB Conc 33.7 g/dL (31.8-35.4); Mean Corpuscular Hemoglobin 29.5 pg (27.0-31.2); Mean Corpuscular Volume 87.5 fl (81-99); Mean Platelet Volume 7.4 fl (7.4-10.4); Monocytes # 0.5 K/mm3 (0.1-1.0); Monocytes % 4.3 % (1.7-9.3); Neutrophils # 5.2 K/mm3 (1.8-7.8); Neutrophils % 48.8 % (37.0-80.0); Platelet Count 293 K/mm3 (142-424); Red Blood Count 4.65 M/mm3 (4.20-5.40); Red Cell Distribution Width 14.5 % (11.5-17.5); White Blood Count 10.7 K/mm3 (4.8-10.8)
[2023-05-24 15:42] LABS: Chloride 106 mmol/L (98-107); Potassium 4.6 mmoL/L (3.5-5.1); Sodium 139 mmol/L (136-145)
[2023-05-24 15:44] LABS: Alanine Aminotransferase 21 U/L (12-78); Aspartate Amino Transferase 32 U/L (14-36); Blood Urea Nitrogen 17 mg/dl (7-17); Creatinine Clearance Estimated 40 mL/min (50-200); Estimated Glomerular Filt Rate 82 ml/min (>60); GFR (African American) 99 ML/MIN (>60)
[2023-05-24 15:45] LABS: Albumin Level 4.5 g/dl (3.5-5.0); Albumin/Globulin Ratio 1.3 (1.1-1.8); Alkaline Phosphatase 83 U/L (38-126); Anion Gap 9.6 mEq/L (5-15); Bilirubin,Total 0.2 mg/dl (0.2-1.3); Calcium 9.7 mg/dl (8.4-10.2); Carbon Dioxide 28 mmol/L (22.0-30.0); Globulin 3.6 g/dL (1.3-3.2); Glucose 94 mg/dl (74-100); Total Protein,Serum 8.1 g/dl (6.3-8.2)
[2023-05-24 15:46] LABS: INR 0.94 (0.9-1.1); Prothrombin Time 10.2 seconds (10.1-12.5)
--- NOTE | 2023-05-24 15:53 | HMH.EDGENADL ---
Discharge Plan Disposition Patient Disposition: Xfer Short-Term Hosp Chief Complaint: Neuro Symptoms/Deficit Prescriptions Prescriptions: No Action ibuprofen 400 mg tablet 400 mg PO Q8H PRN (Reason: pain) Qty: 30 0RF albuterol sulfate 90 mcg/actuation HFA aerosol inhaler 2 inh INHALATION QID PRN (Reason: shortness of breath or wheezing) 90 Days Qty: 8.5 2RF spironolactone [Aldactone] 25 mg tablet 25 mg PO DAILY PRN (Reason: edema) Qty: 30 2RF cyproheptadine 4 mg tablet 8 mg PO HS Qty: 60 6RF Qulipta 60 mg tablet 60 mg PO DAILY MDD 60 mg Qty: 30 6RF furosemide [Lasix] 40 mg tablet 40 mg PO DAILY PRN (Reason: edema) Qty: 30 2RF metoprolol succinate 25 mg tablet extended release 24 hr 25 mg PO DAILY Qty: 90 3RF Rx Instructions: TAKE ONE TABLET BY MOUTH ONCE A DAY atorvastatin 40 mg tablet 40 mg PO DAILY Qty: 90 3RF Anoro Ellipta 62.5-25 mcg/actuation blister with device 1 inh IH DAILY 90 Days Qty: 180 3RF aspirin 81 mg tablet,delayed release (DR/EC) 81 mg PO DAILY Rx Instructions: TAKE ONE TABLET BY MOUTH ONCE A DAY ondansetron HCl 4 mg tablet 4 mg PO Q8H PRN (Reason: nausea and vomiting) 5 Days Qty: 30 0RF Referrals Follow up/Referrals: Gama Gil MD [Primary Care Provider] - See instructions Activity Restrictions/Add. Instructions Additional Instructions/Restrictions: You are being transferred to [facility], [place] for continued stroke evaluation. Please follow-up with your family doctor in 2 to 3 months for surveillance of your lung nodule. Clinical Impressions Clinical Impression: Stroke-like symptoms, Apical lung nodule Discharge ED Provider: Amrit Bedolla General Adult HPI General Chief complaint: Neuro Symptoms/Deficit Stated complaint: phy ref, little numbness in Lt hand Time Seen by Provider: 05/24/23 15:10 Mode of Arrival: Ambulatory Source of Information: Patient Limitations: No Limitations Description of Symptoms (Recalled from ER Triage Doc. by RN): Pt reports on Saturday or Saturday of this week (unsure which day) had sudden onset of weakness and tingling in LUE-states had to manually lift LUE to move it. Pt reports weakness and numbness has gradually improved. Now only having tingling in fingers 4 and 5 on L hand. History of Present Illness HPI narrative: Patient is a 73-year-old female with past medical history of COPD, hypertension, hyperlipidemia, coronary artery disease who presents emergency department for altered sensorium. History is obtained by patient at bedside. Saturday or Saturday evening patient had acute inability to use her left upper extremity. She states that she has had multiple left shoulder surgeries and cannot range her shoulder due to pain however she has never been able to simply not move the entire extremity. This lasted approximately 20 minutes with gradual return to baseline. Since then she has had paresthesias radiating down from her elbow into her entire hand which are more prominent on the ulnar aspect. Denies other extremity weakness, other acute complaints at this time, speech changes. Related Data Home Medications Medication Instructions Recorded Confirmed aspirin 81 mg tablet,delayed 81 mg PO DAILY [facility] 12/04/22 05/24/23 release Previous Rx's Medication Instructions Recorded ibuprofen 400 mg tablet 400 mg PO Q8H PRN pain #30 tabs 01/12/22 albuterol sulfate 90 mcg/actuation 2 inh inhalation QID PRN shortness 03/07/22 aerosol inhaler of breath or wheezing 90 days #8.5 grams ondansetron HCl 4 mg tablet 4 mg PO Q8H PRN nausea and 03/13/23 vomiting 5 days #30 tabs furosemide 40 mg tablet (Lasix) 40 mg PO DAILY PRN edema #30 tabs 03/26/23 atorvastatin 40 mg tablet 40 mg PO DAILY Cholesterol #90 tabs 04/09/23 metoprolol succinate 25 mg 25 mg PO DAILY hr #90 tabs 04/09/23 tablet,extended release 24 hr umeclidinium 62.5 mcg-vilanterol 1 inh inhalation DAILY 90 days 05/02/23 25 m
--- NOTE | 2023-05-24 17:50 | PC.NURSE ---
contacting [facility] to speak about transfer to stroke like symptoms
--- NOTE | 2023-05-24 17:53 | PC.NURSE ---
Dr. Bedolla speaking with stroke nurse practitioner at [facility]
--- NOTE | 2023-05-24 17:57 | PC.NURSE ---
pt accepted to [facility] per DR. Jaleel Bates. waiting induction furnace operator back with bed assignment faxing face sheet
--- NOTE | 2023-05-24 18:16 | PC.NURSE ---
report called to peter alonzo at [facility] at this time.
--- NOTE | 2023-05-24 18:27 | ECG_ITS ---
APPROVED REPORT Exam: Resting ECG HR:62 bpm ECG Measurements Heart Rate 62 AXES PA 161 P 78 QRSd 98 QRS 59 QT 369 T 40 QTc 375 Conclusion SINUS RHYTHM NORMAL ECG UNCONFIRMED REPORT Electronically signed by : Romulo Flores MD 05/25/2023 16:53:20
== END 2023-05-24 18:32 | disposition short-term general hospital (02) ==
PROVIDERS: Emergency Provider Emergency Medicine; PCP Emergency Medicine
DX: R29.818 Other symptoms and signs involving the nervous system (principal); R91.1 Solitary pulmonary nodule; F17.210 Nicotine dependence, cigarettes, uncomplicated; J44.9 Chronic obstructive pulmonary disease, unspecified; I25.10 Atherosclerotic heart disease of native coronary artery without angina pectoris; I11.9 Hypertensive heart disease without heart failure; E78.5 Hyperlipidemia, unspecified
CPT/HCPCS: 70450; 70496; 70498; 80053; 85025; 85610; 93005; 99285; Q9967

== ENCOUNTER → 2023-06-04 14:52 | Outpatient (CLI) | payer MEDICARE, MEDICAID, SELFPAY ==
[2023-06-04 16:04] LABS: Chloride 105 mmol/L (98-107); Potassium 4.5 mmoL/L (3.5-5.1); Sodium 141 mmol/L (136-145)
[2023-06-04 16:07] LABS: Anion Gap 10.5 mEq/L (5-15); Blood Urea Nitrogen 19 mg/dl (7-17); Calcium 9.6 mg/dl (8.4-10.2); Carbon Dioxide 30 mmol/L (22.0-30.0); Estimated Glomerular Filt Rate 61 ml/min (>60); GFR (African American) 74 ML/MIN (>60); Glucose 84 mg/dl (74-100)
== END ==
PROVIDERS: PCP Emergency Medicine; Visit Provider Physician Assistant
DX: I11.9 Hypertensive heart disease without heart failure (principal); E78.2 Mixed hyperlipidemia; I25.10 Atherosclerotic heart disease of native coronary artery without angina pectoris; Z72.0 Tobacco use
CPT/HCPCS: 80048

== ENCOUNTER → 2023-07-03 12:41 | Outpatient (CLI) | payer MEDICARE, MEDICAID, SELFPAY | LOC: RT 12:42 | PROVIDERS: PCP Physician Assistant; Visit Provider Specialist | DX: R29.90 Unspecified symptoms and signs involving the nervous system (principal); R42 Dizziness and giddiness; R55 Syncope and collapse | CPT/HCPCS: 93270 ==

== ENCOUNTER 2023-08-21 20:50 | Outpatient (CLI) | payer MEDICARE, MEDICAID, SELFPAY ==
[2023-08-21 19:33] LABS: Thyroid Stimulating Hormone 0.06 uIU/mL (0.465-4.68)
== END 2023-08-21 23:59 ==
LOC: LAB.DROPOF 20:50
PROVIDERS: PCP Internal Medicine; Visit Provider Internal Medicine
DX: E05.90 Thyrotoxicosis, unspecified without thyrotoxic crisis or storm (principal); R94.6 Abnormal results of thyroid function studies
CPT/HCPCS: 84443

== ENCOUNTER 2023-09-18 14:15 | Outpatient (CLI) | payer MEDICARE, MEDICAID, SELFPAY ==
[2023-09-18 16:50] LABS: Vitamin B12 364 pg/mL (239-931)
[2023-09-26 03:52] LABS: Vitamin B1 79.8 nmol/L (66.5-200.0)
== END 2023-09-18 23:59 ==
LOC: LAB 14:16
PROVIDERS: PCP Internal Medicine; Visit Provider Specialist
DX: R41.3 Other amnesia (principal); Z86.39 Personal history of other endocrine, nutritional and metabolic disease; R51.9 Headache, unspecified
CPT/HCPCS: 36415; 82607; 84425

== ENCOUNTER 2023-10-14 10:39 | Outpatient (CLI) | payer MEDICARE, MEDICAID, SELFPAY ==
--- NOTE | 2023-10-14 10:42 | MM_ITS ---
PROCEDURE INFORMATION: Exam: MG Bilateral Screening 3D Mammography Exam date and time: 10/14/2023 10:28 AM Age: 73 years old Clinical indication: Screening. No family history of breast cancer. TECHNIQUE: Imaging protocol: Bilateral Screening tomosynthesis and 2D mammography including computer-aided detection (CAD) when performed. COMPARISON: 1. MG MM DIG SCREENING MAMM BI W/CAD 10/11/2022 10:16 AM 2. MG MM DIG SCREENING MAMM BI W/CAD 12/18/2019 10:17 AM 3. MG DMSB DIG MAMM-SCREEN JOSUE W/CAD 01/18/2017 3:16 PM 4. MG DIGMAMMS MAMMOGRAM SCREEN-SALES LEADER N/C 07/24/2007 3:34 PM FINDINGS: MAMMOGRAPHY: Breast composition: The breasts are heterogeneously dense, which may obscure small masses. Mass: None. Architectural distortion: None. Calcifications: No suspicious calcifications. Asymmetric density: None. Skin thickening: None. Axillary adenopathy: None. IMPRESSION: No mammographic evidence of malignancy. Annual screening is recommended unless otherwise clinically indicated. ASSESSMENT: BI-RADS Category 1: Negative
== END 2023-10-14 23:59 ==
LOC: RAD 10:40
PROVIDERS: PCP Internal Medicine; Visit Provider Internal Medicine
DX: Z12.31 Encounter for screening mammogram for malignant neoplasm of breast (principal)
CPT/HCPCS: 77063; 77067

== ENCOUNTER 2023-10-18 15:05 | Outpatient (CLI) | payer MEDICARE, MEDICAID, SELFPAY ==
--- NOTE | 2023-10-18 15:05 | CT_ITS ---
FINAL REPORT TECHNIQUE: Axial images were obtained from the lung apex to the mid abdomen by computed tomography. This study was performed with techniques to keep radiation doses as low as reasonably achievable, (ALARA). Individualized dose reduction techniques using automated exposure control or adjustment of mA and/or kV according to the patient's size were employed. CLINICAL HISTORY: 6-month follow-up lung nodule right sided COMPARISON: 03/13/2023 FINDINGS: A possible right thyroid lobe mass again noted. There is no axillary adenopathy. There is no hilar or mediastinal adenopathy. The heart is proper size. There is no pericardial or pleural effusion. Limited images of the upper abdomen are unremarkable. There are irregular bilateral apical opacities, right greater than left, stable from the prior exam and most compatible with scarring and less likely neoplasm. There were no new pulmonary opacities. There is bronchiectasis and emphysematous change noted. IMPRESSION: Stable parenchymal pulmonary opacities, favor postinflammatory. Recommend continued CT follow-up in 6 months. Reviewed, Interpreted and Dictated by Krys Wild MD Transcribed by SANDRA Quispe Authenticated and [facility]
== END 2023-10-18 23:59 ==
LOC: RAD 15:05
PROVIDERS: PCP Internal Medicine; Visit Provider Internal Medicine Pulmonary Disease
DX: R91.8 Other nonspecific abnormal finding of lung field (principal)
CPT/HCPCS: 71250

== ENCOUNTER 2023-10-24 09:39 | Outpatient (CLI) | payer MEDICARE, MEDICAID, SELFPAY ==
--- NOTE | 2023-10-24 09:42 | NM_ITS ---
FINAL REPORT TECHNIQUE: Sequential anterior images were obtained after the ingestion of 2 whole eggs scrambled, 1 piece of white toast with butter, and a 6 oz cup of water radiolabeled with 0.52 mCi technetium 99M sulfur colloid. CLINICAL HISTORY: Evaluate emptying time 10:15 am .52 uci sulfur colloid injected into 2 whole eggs scrambled 1 white toast with butter 6oz cup of water COMPARISON: None FINDINGS: GASTRIC EMPTYING SCAN Static images show normal emptying of the stomach into the small bowel. Based on the time activity curve, the estimated half-emptying time is abnormally prolonged at 212 minutes. IMPRESSION: Abnormally prolonged gastric emptying study. Reviewed, Interpreted and Dictated by Bong Fraga III, MD Transcribed by Jennifer Mullen Authenticated and [facility]
[2023-10-24] MEDS: TC99M SULF.COLLOID;1 DOSE (UP TO 20 MCI) IV (10:32)
== END 2023-10-24 23:59 ==
LOC: RAD 09:40
PROVIDERS: PCP Internal Medicine; Visit Provider Nurse Practitioner
DX: R11.0 Nausea (principal); R63.0 Anorexia; R63.4 Abnormal weight loss; Z68.1 Body mass index [BMI] 19.9 or less, adult
CPT/HCPCS: 78264; A9541

== ENCOUNTER 2023-11-20 12:51 | Outpatient (POV) | payer MEDICARE, MEDICAID, SELFPAY ==
[2023-11-20 13:01] VITALS: BP 111/57; PULSE 91; RESP 16; O2SAT 98; BMI 18.4
--- NOTE | 2023-11-20 14:08 | A.OFFVIS_ITS ---
[facility] Pain Management SOAP Note Subjective:: Patient is a pleasant 73-year-old female who presents today for follow-up. She rates her pain today a 4 or 5 out of 10. Patient states that she continues to have chronic pain in her neck with radiating numbness and tingling into her left arm down to her fingers as well as daily headaches. Patient states that this is constant and that she has tried multiple medications with minimal improvement. Patient states that she will occasionally have a migraine from time to time. Patient denies any new trauma or injury from her last visit. Patient has tried cervical epidurals that did provide significant relief however were very short- lived only providing on average a couple of days of relief. Patient does state today that she would like improvement that would provide more consistent relief. Patient does describe her pain as a aching, throbbing sensation with numbness and tingling. Patient does state the pain interferes with her ability to perform activities of daily living such as cooking and cleaning. Patient has tried [id number] medications such as Tylenol and ibuprofen along with heat and ice and topicals with minimal relief. Patient did have physical therapy with minimal relief. Her Chris has been reviewed and is appropriate. Review of Systems: General: No recent weight changes, no fever, no sleep disturbances Respiratory: No cough, no shortness of air, no recurring pulmonary infections Cardiovascular/peripheral vascular: No chest pain, no palpitations, no edema, no shortness of breath Gastrointestinal: No new onset incontinence, normal bowel movements reported Genitourinary: No new onset incontinence Musculoskeletal: Neck pain, left arm numbness tingling, chronic headache Psychiatric: [Normal mood/affect] Neurological: [Denies weakness in extremities], [denies balance issues] Objective:: Physical Exam: General: Alert and oriented x3, no acute distress, pleasant and cooperative Lungs: Respirations even and unlabored, symmetrical chest expansion Eyes: PERRL Musculoskeletal: Flexion and extension of cervical [spine] somewhat guarded secondary to pain, [antalgic gait noted] positive Spurling's test Neurological: Speech clear, no gross sensory deficit Assessment:: Degenerative disc disease of cervical spine with cervical radiculopathy symptoms, chronic headache, neck pain, chronic pain syndrome Plan:: Patient is a very send significant pain throughout her neck with radiating symptoms to her left upper extremity and daily headaches. Patient has been tried on multiple headache medications including valproic acid, Ajovy injections, Qulipta, cyproheptadine, etc. with minimal relief. I have discussed with the patient and counseled her that Botox may be an option if the migraines increase to 15 or more per month. I have discussed with the patient for more consistent relief that she may have better options such as the spinal cord stimulator trial. Risk and benefits and educational handouts were given at today's visit. Patient would like to proceed forward with this option. Patient has tried and failed conservative treatment such as oral medication, heat and ice, topicals, physical therapy, injection therapy and continued at home exercising and stretching for longer than 12 weeks. We will schedule the patient for a psychological evaluation and if she is deemed an appropriate c andidate we will proceed forward with the spinal cord stimulator trial at a later date. Patient will return to clinic in 1 month for reevaluation of symptoms and plan of care. Patient has been instructed to contact the clinic with any concerns before the next appointment. Dr. Glynn has reviewed this note and agrees with this plan of care. This note was dictated using voice recognition software and make contain errors or omissions. [facility] Disclaimer: The information contained in this section may have been updated after the patient was seen, as this information can be updated by other users. Medical History Nausea Loss of appetite Hoarseness Deviated septum Dysphagia Near syncope Dizziness Edema New onset Abnormal EKG Memory loss In January this patient had a Mini-Mental status exam which was unremarkable. She may need to have neuropsychiatric testing and we can think about this and send her to Dr. Armendariz for that if necessary. Migraine Weakness of left upper extremity Left arm weakness 04/2023. Admitted to [facility], 24-hour admission with noncontributory results. Dyspnea on exertion Tobacco abuse disorder Tobacco abuse counseling Pulmonary nodule, right Abnormal computerized axial tomography of chest Screening for lung cancer COPD (chronic obstructive pulmonary disease) Dyspnea Cryptogenic stroke Currently on best medical therapy. Asymptomatic Blurry vision Chronic obstructive pulmonary disease Apparently patient is following with pulmonary at [facility]. She is on albuterol MDI and also Anoro MDI. Will continue those medications. Surgical History History of colonoscopy Hx of cholecystectomy History of cardiac cath History of appendectomy Family History Other Coronary artery disease Heart attack Social History Smoking Status: Current every day smoker tobacco type: cigarettes packs per day: 1 quit status: considering quitting second hand exposure: Yes alcohol intake: current alcohol intake frequency: a few times a month substance use type: denies use current occupational status: other Travel in the last 8 weeks: None household members: family housing: apartment marital status: number of children: 2 education level: high school current occupational exposures/hazards: No caffeine: Yes physical activity: none and walking do you feel safe at home: Yes victim of physical abuse: No victim of emotional abuse: No victim of sexual abuse: No
== END 2023-11-20 23:59 | disposition home or self-care (01) ==
LOC: SC.PAIN 12:52
PROVIDERS: PCP Internal Medicine; Visit Provider Nurse Practitioner Family
DX: M50.10 Cervical disc disorder with radiculopathy, unspecified cervical region (principal); R51.9 Headache, unspecified; G89.4 Chronic pain syndrome
CPT/HCPCS: 99212; G0463

== ENCOUNTER 2024-02-05 10:53 | Outpatient (CLI) | payer MEDICARE, MEDICAID, SELFPAY ==
--- NOTE | 2024-02-05 11:01 | FL_ITS ---
FINAL REPORT CLINICAL HISTORY: 260.16 DAP 5.28 FLUORO TROUBLE SWALLOWING FINDINGS: MODIFIED BARIUM SWALLOW History: Dysphagia FINDINGS: Fluoroscopy was provided for the speech pathologist to evaluate the swallowing mechanism. The patient was given several different consistencies of barium while the swallow was visualized fluoroscopically. The report of the speech pathologist should be consulted prior to making dietary decisions. Fluoroscopy time: 5 minutes 28 seconds Fluoro dose: 260.16 DAP in uGym2 IMPRESSION: Modified barium swallow under fluoroscopic guidance. Please see the report of the speech pathologist for Dietary recommendations. Films reviewed , interpreted and dictated by Dr. Amie Sparks. Transcribed by Brian Vigil PA-C. Reviewed, Interpreted and Dictated by Amie Sparks MD Transcribed by SANDRA Jade Authenticated and [facility]
--- NOTE | 2024-02-05 17:12 | HMH.SLMBS2 ---
Speech & Language Evaluation Speech/Language Mod Barium Swallow Start: 02/05/24 16:48 Freq: once Status: Complete Protocol: Document 02/05/24 16:48 FRANCINE (Rec: 02/05/24 17:11 [facility] [id number]) Co-signed By ST Leah General Information General Current Food Consistancy Regular,Thin Liquids Dentition Poor Dentition Oxygen Status Room Air Facial Symmetry Symmetrical Patient Orientation Person,Place,Time,Situation Ability to Follow Directions Excellent Communication Ability No Impairment MBS Recommendations Diet Dietary Recommendations Regular,Thin Liquids Treatment/Strategies Strategy/Precaution Recommend Sitting Upright (90 deg), Double Swallow,Small Bites and Sips,Alternate Liquids/Solids Referrals/Other Recommended Referrals GI Consult Other Recommendations GI consult 2' nausea with meals, occasional regurgitation at meals, and reports of globus sensation/ mild retrograde flow of bolus trials during MBSS Mod Barium Swallow Impressions Summary and Impressions Oral Phase Impression Mild Impairment Oral Phase Summary Mild impairment of the oral phase of swallow. Patient exhibited adequate labial seal and demonstrated no anterior loss with any consistency trialed. Patient's mastication and manipulation of the bolus was mildly reduced for mechanical soft and regular foods '2 fatigue. Mild lingual residue was present with pudding, puree, mechanical soft, and regular food trials, and was cleared by a double swallow. Pharyngeal Phase Impression Mild Impairment Pharyngeal Phase Summary Mild to moderate impairment of the pharyngeal phase of swallow. No aspiration/ penetration observed on any consistency trialed. Patient's base of tongue retraction was observed to be moderately reduced, and hyolaryngeal excursion/elevation and epiglottic coverage was mildly impaired. Mild-moderate
== END 2024-02-05 23:59 | disposition home or self-care (01) ==
LOC: RAD 10:54
PROVIDERS: PCP Internal Medicine; Visit Provider Nurse Practitioner
DX: R13.10 Dysphagia, unspecified (principal)
CPT/HCPCS: 70371; 92611

== ENCOUNTER 2024-02-10 10:49 | Outpatient (POV) | payer MEDICARE, MEDICAID, SELFPAY ==
[2024-02-10 11:15] VITALS: BP 123/64; PULSE 61; RESP 18; O2SAT 96; BMI 18.4
--- NOTE | 2024-02-10 11:31 | EXP.PAIN.SOA ---
[facility] Disclaimer: The information contained in this section may have been updated after the patient was seen, as this information can be updated by other users. Medical History (Updated 02/10/24 @ 11:34 by Kortney Manning APRN) History of esophageal dilatation Nausea Loss of appetite Hoarseness Deviated septum Dysphagia Near syncope Dizziness Edema Abnormal EKG Memory loss Migraine Weakness of left upper extremity Dyspnea on exertion Tobacco abuse disorder Tobacco abuse counseling Pulmonary nodule, right Abnormal computerized axial tomography of chest Screening for lung cancer COPD (chronic obstructive pulmonary disease) Dyspnea Cryptogenic stroke Blurry vision Chronic obstructive pulmonary disease Surgical History History of colonoscopy Hx of cholecystectomy History of cardiac cath History of appendectomy Family History Sister Cancer, Onset Age: 77 Family/Other Cancer Other Coronary artery disease Heart attack Social History Smoking Status: Current every day smoker tobacco type: cigarettes packs per day: 1 quit status: considering quitting second hand exposure: Yes alcohol intake: current alcohol intake frequency: a few times a month substance use type: denies use current occupational status: other Travel in the last 8 weeks: None household members: family housing: apartment marital status: number of children: 2 education level: high school current occupational exposures/hazards: No caffeine: Yes physical activity: none and walking do you feel safe at home: Yes victim of physical abuse: No victim of emotional abuse: No victim of sexual abuse: No PM Subjective & Objective Subjective Subjective:: Patient is a pleasant 73-year-old female who presents today for follow-up. Today she rates her pain a 4 out of 10. She denies any new trauma or injury. She does state that she continues to have chronic pain throughout her neck and radiating into her left arm down to her fingers with daily headaches. Patient states that overall the right side is doing okay. She does state this is a constant aching, throbbing pain with numbness and tingling that does interfere with her ability to perform ADLs such as cooking and cleaning. Patient at her last visit did discuss possible Botox injections as well as additional epidurals or possibly even a spinal cord stimulator trial. Patient does state today that she would like to proceed forward with the spinal cord stimulator trial. Patient has tried and failed conservative treatment including oral medications, heat and ice, topicals, cervical epidurals, physical therapy and continued at home stretching exercise for longer than 12 weeks. Her Chris has been reviewed and is appropriate. Review of Systems: General: No recent weight changes, no fever, no sleep disturbances Respiratory: No cough, no shortness of air, no recurring pulmonary infections Cardiovascular/peripheral vascular: No chest pain, no palpitations, no edema, no shortness of breath Gastrointestinal: No new onset incontinence, normal bowel movements reported Genitourinary: No new onset incontinence Musculoskeletal: Neck pain, left arm numbness tingling, headaches Psychiatric: [Normal mood/affect] Neurological: [Denies weakness in extremities], [denies balance issues] Pain at rest (0-10 scale): 4 Objective Objective:: Physical Exam: General: Alert and oriented x3, no acute distress, pleasant and cooperative Lungs: Respirations even and unlabored, symmetrical chest expansion Eyes: PERRL Musculoskeletal: Flexion and extension of cervical [spine] somewhat guarded secondary to pain, [antalgic gait noted] positive Spurling's test Neurological: Speech clear, no gross sensory deficit FINDINGS: Multi planar MR imaging was obtained of the cervical spine. There is abnormal decreased signal throughout the cervical discs. The vertebrae are of normal height. There is no malalignment. The cervical cord demonstrates normal signal and configuration. C2-C3: There is no evidence of significant disc bulge or protrusion. There is no significant facet hypertrophy. C3-C4: There is no evidence of significant disc bulge or protrusion. There is no significant facet hypertrophy. C4-C5: Mild disc bulge. Neural foramen are adequately patent. C5-C6: Midline and right paracentral disc protrusion. Mild compromise of the right side of the spinal canal. High-grade right C6 neural foraminal narrowing. C6-C7: Diffuse disc bulge. Endplate hypertrophy eccentric to the right. High-grade right neural foraminal narrowing. C7-T1: There is no evidence of significant disc bulge or protrusion. There is no significant facet hypertrophy. IMPRESSION: Posterolateral protrusion C5-6 and C6-7 with endplate hypertrophy and high-grade right neural foraminal narrowing Reviewed, Interpreted and Dictated by Lul Patton MD Transcribed by Jenniefr Mullen Authenticated and [facility] Has patient had previous pain injection?: No Conservative treatment options previously tried: NSAIDS Length of treatment: Longer than 6 weeks and Home exercise plan Length of treatment: Longer than 6 weeks Meds Home Medications and Allergies Home Medications Medication Instructions Recorded Confirmed Type atorvastatin 80 mg tablet 80 mg PO HS 06/04/23 02/10/24 History spironolactone 25 mg tablet 25 mg PO DAILY PRN edema #90 tabs 06/04/23 02/10/24 Rx (Aldactone) furosemide 40 mg tablet See Rx Instructions .Route 07/01/23 02/10/24 Rx .COMPLEX #90 tabs atogepant 60 mg tablet (Qulipta) 60 mg PO DAILY Episodic migraine 09/18/23 02/10/24 Rx #30 tabs clopidogrel 75 mg tablet 75 mg PO DAILY TIA #30 tabs 09/18/23 02/10/24 Rx cyproheptadine 4 mg tablet 12 mg (3 x 4 mg) PO HS Migraine 09/18/23 02/10/24 Rx #90 tabs thiamine mononitrate (vit B1) 100 100 mg PO DAILY 10/04/23 02/10/24 History mg tablet (Vitamin B-1 (mononitrate)) metoprolol succinate 25 mg 25 mg PO DAILY hr #90 tabs 10/29/23 02/10/24 Rx tablet,extended release 24 hr umeclidinium 62.5 mcg-vilanterol 1 inh inhalation DAILY 90 days 10/30/23 02/10/24 Rx 25 mcg/actuation powdr for #180 ea inhalation (Anoro Ellipta) albuterol sulfate 90 mcg/actuation See Rx Instructions .Route 12/04/23 02/10/24 Rx aerosol inhaler .COMPLEX #8.5 grams docusate sodium 50 mg capsule 50 mg PO .PRN 01/16/24 02/10/24 History (Stool Softener) metoclopramide HCl 15 mg/spray 1 spray intranasal DAILY nausea, 01/16/24 02/10/24 Rx nasal spray with pump (Gimoti) slow gastric empty at 212 min 4 weeks #9.8 mL New Prescriptions to Start Prescriptions: Allergies Allergy/AdvReac Type Severity Reaction Status Date / Time chlorzoxazone Allergy Unknown COULDN'T Verified 02/10/24 11:15 [From PARAFON FORTE] MOVE Penicillins [PENICILLINS] Allergy Unknown Verified 02/10/24 11:15 Assessment and Plan *Assessment and plan (1) Cervical spondylosis: Status: Acute Category: Medical Code(s): M47.812 - Spondylosis without myelopathy or radiculopathy, cervical region (2) Chronic neck pain: Status: Acute Category: Medical Code(s): M54.2 - Cervicalgia; G89.29 - Other chronic pain (3) Cervical radiculopathy: Status: Acute Category: Medical Code(s): M54.12 - Radiculopathy, cervical region Plan Patient continues to have significant pain in her neck with numbness and tingling down her entire right extremity. Patient has had prior cervical epidural that did show degenerative disc throughout and severe narrowing multilevel. I have reviewed over the risk and benefits of the spinal cord stimulator trial and he would like to proceed forward with this plan of care. I will order the patient a psychological evaluation and if she is deemed an appropriate candidate we will proceed forward with the spinal cord stimulator trial at a later date. Patient is agreeable to this plan of care. Patient will return to clinic in 1 month for reevaluation of symptoms and plan of care. Patient has been instructed to contact the clinic with any concerns before the next appointment. Dr. Glynn has reviewed this note and agrees with this plan of care. This note was dictated using voice recognition software and make contain errors or omissions.
== END 2024-02-10 23:59 | disposition home or self-care (01) ==
LOC: SC.PAIN 10:49
PROVIDERS: PCP Internal Medicine; Visit Provider Nurse Practitioner Family
DX: G89.29 Other chronic pain; M47.22 Other spondylosis with radiculopathy, cervical region; F17.200 Nicotine dependence, unspecified, uncomplicated
CPT/HCPCS: 99212; G0463

== ENCOUNTER 2024-03-03 14:43 | Outpatient (CLI) | payer MEDICARE, MEDICAID, SELFPAY ==
--- NOTE | 2024-03-03 14:44 | CT_ITS ---
FINAL REPORT TECHNIQUE: Axial images were obtained from the lung apex to the mid abdomen by computed tomography. This study was performed with techniques to keep radiation doses as low as reasonably achievable (ALARA). Individualized dose reduction techniques using automated exposure control or adjustment of mA and/or kV according to the patient's size were employed. CLINICAL HISTORY: lung cancer screening / ppd x 30 years copd CTDI:2.90 DLP:97.95 COMPARISON: 03/19/2024 FINDINGS: CHEST CT LOW DOSE CTDI vol (mGy): 2.90 DLP (mGy-cm): 97.95 Low-attenuation mass is again seen in the AP window which is stable. It is uncertain if this represents a cystic mass or unusual pericardial recess. No axillary mass is identified. The heart is normal in size. There is no pericardial or pleural effusion. Note is made of moderate emphysema. Mild pulmonary scarring is identified. There are bilateral pulmonary parenchymal opacities, largest in the right apex measures 29 mm. This is stable since the prior. There are new small right middle lobe opacities, likely inflammatory. Calcified granuloma is seen in the left upper lobe. No new mass or nodule is identified. Limited images of the upper abdomen reveal cholecystectomy. There is a probable left adrenal adenoma. IMPRESSION: Stable previously identified opacities, likely scarring. New small right middle lobe opacities, likely inflammatory. Lung RADS category 0. Recommend 3 month follow-up low-dose chest CT. Reviewed, Interpreted and Dictated by Bong Fraga III, MD Transcribed by Angelita Judd Authenticated and [facility]
== END 2024-03-03 23:59 | disposition home or self-care (01) ==
LOC: RAD 14:44
PROVIDERS: PCP Internal Medicine; Visit Provider Internal Medicine
DX: F17.210 Nicotine dependence, cigarettes, uncomplicated (principal)
CPT/HCPCS: 71271

== ENCOUNTER 2024-03-17 22:12 | Outpatient (CLI) | payer MEDICARE, MEDICAID, SELFPAY ==
[2024-03-17 22:37] LABS: Basophils # 0.2 K/mm3 (0-0.2); Basophils % 1.4 % (0.1-2.0); Eosinophils # 0.3 K/mm3 (0.0-0.4); Eosinophils % 2.4 % (0.1-12.0); Hematocrit 43.9 % (37.0-47.0); Hemoglobin 13.3 g/dL (12.2-16.2); Lymphocytes # 4.5 K/mm3 (0.7-4.5); Lymphocytes % 38.3 % (10-50); Mean Corpuscular HGB Conc 30.3 g/dL (31.8-35.4); Mean Corpuscular Hemoglobin 27.8 pg (27.0-31.2); Mean Corpuscular Volume 91.5 fl (81-99); Mean Platelet Volume 9.1 fl (7.4-10.4); Monocytes # 0.6 K/mm3 (0.1-1.0); Monocytes % 5.3 % (1.7-9.3); Neutrophils # 6.2 K/mm3 (1.8-7.8); Neutrophils % 52.6 % (37.0-80.0); Platelet Count 401 K/mm3 (142-424); Red Cell Distribution Width 16.2 % (11.5-17.5); White Blood Count 11.7 K/mm3 (4.8-10.8)
[2024-03-17 22:47] LABS: Alanine Aminotransferase 31 U/L (12-78); Albumin/Globulin Ratio 1.3 (1.1-1.8); Alkaline Phosphatase 82 U/L (38-126); Anion Gap 10.5 mEq/L (5-15); Aspartate Amino Transferase 37 U/L (14-36); Bilirubin,Total 0.6 mg/dl (0.2-1.3); Blood Urea Nitrogen 8 mg/dl (7-17); Carbon Dioxide 25 mmol/L (22.0-30.0); Chloride 110 mmol/L (98-107); Cholesterol 118 mg/dl (140-200); Estimated Glomerular Filt Rate 82 ml/min (>60); GFR (African American) 99 ML/MIN (>60); Globulin 3.1 g/dL (1.3-3.2); Glucose 93 mg/dl (74-100); HDL Cholesterol 40 mg/dl (40-60); Potassium 4.5 mmoL/L (3.5-5.1); Sodium 141 mmol/L (136-145); Total Protein,Serum 7.1 g/dl (6.3-8.2); Triglycerides 103 mg/dl (30-150); VLDL Cholesterol 21 mg/dL (0-40)
[2024-03-17 22:51] LABS: Creatinine,Urine Random 64 mg/dL (Not Estab.)
[2024-03-17 22:58] LABS: Direct LDL Cholesterol 58.08 mg/dL (100-129)
[2024-03-17 23:12] LABS: Microalbumin/Creatinine Ratio 9.5
[2024-03-17 23:17] LABS: Thyroid Stimulating Hormone 0.63 uIU/mL (0.465-4.68)
== END 2024-03-17 23:59 | disposition home or self-care (01) ==
LOC: LAB.DROPOF 22:14
PROVIDERS: PCP Internal Medicine; Visit Provider Internal Medicine
DX: R53.83 Other fatigue (principal); R94.6 Abnormal results of thyroid function studies; R93.89 Abnormal findings on diagnostic imaging of other specified body structures; I10 Essential (primary) hypertension; R79.89 Other specified abnormal findings of blood chemistry
CPT/HCPCS: 80050; 80053; 80061; 82043; 82570; 84443; 85025

== ENCOUNTER 2024-03-27 10:14 | Outpatient (CLI) | payer MEDICARE, MEDICAID, SELFPAY | END 2024-03-27 23:59 | disposition home or self-care (01) | LOC: PREOP 10:15 | PROVIDERS: PCP Internal Medicine; Visit Provider Anesthesiology | DX: Z01.818 Encounter for other preprocedural examination (principal) ==

== ENCOUNTER 2024-04-09 10:36 | Outpatient (CLI) | payer MEDICARE, MEDICAID, SELFPAY ==
[2024-04-09 19:43] LABS: Free T4 (Free Thyroxine) 0.81 ng/dl (0.78-2.19)
[2024-04-09 19:44] LABS: 25-OH Vitamin D, Total 29.4 ng/mL (30-100)
[2024-04-09 19:48] LABS: Hemoglobin A1C 5.8 % (4.0-6.0)
[2024-04-09 20:55] LABS: Vitamin B12 287 pg/mL (239-931)
[2024-04-09 21:01] LABS: Folate 7.37 ng/mL
[2024-04-09 21:55] LABS: HIV (1&2) Antibody Rapid NONREACTIVE (NONREACTIVE)
[2024-04-09 22:39] LABS: Erythrocyte Sedimentation Rate 16 mm/hr (0-30)
[2024-04-11 07:12] LABS: HBsAg Screen Negative (Negative); HCV Ab Non Reactive (Non Reactive); Hep A Ab, IGM Negative (Negative); Hep B Core Ab, IgM Negative (Negative)
[2024-04-11 10:14] LABS: Thyroid Peroxidase Antibodies <9 IU/mL (0-34); Triiodothyronine (T3) Free 2.8 pg/mL (2.0-4.4)
[2024-04-13 15:13] LABS: Thyroglobulin Level <1.0 IU/mL (0.0-0.9)
== END 2024-04-09 23:59 | disposition home or self-care (01) ==
LOC: LAB.DROPOF 04-10 10:37
PROVIDERS: PCP Internal Medicine; Visit Provider Internal Medicine
DX: E55.9 Vitamin D deficiency, unspecified (principal); R60.0 Localized edema; R93.89 Abnormal findings on diagnostic imaging of other specified body structures; R94.6 Abnormal results of thyroid function studies; Z11.59 Encounter for screening for other viral diseases; K74.60 Unspecified cirrhosis of liver; R53.83 Other fatigue; Z13.1 Encounter for screening for diabetes mellitus; Z86.39 Personal history of other endocrine, nutritional and metabolic disease
CPT/HCPCS: 80074; 82306; 82607; 82746; 83036; 84439; 84481; 85651; 86376; 86800; 86803; 87389

== ENCOUNTER 2024-04-20 13:23 | Outpatient (CLI) | payer MEDICARE, MEDICAID, SELFPAY ==
--- NOTE | 2024-04-20 13:23 | US_ITS ---
FINAL REPORT CLINICAL HISTORY: abnormal thyroid COMPARISON: 04/05/2023 FINDINGS: THYROID ULTRASOUND: The right lobe of the thyroid measures 4.7 x 1.7 x 2.2 cm in size. There is a right sided dominant nodule present, in the mid thyroid gland, measuring 2.1 x 1.7 cm in size, essentially stable when compared to the prior exam of March 2023. This nodule is mixed solid and cystic, a TI-RADS category 3 nodule. There are several other small less than 10 mm in size nodules present, some of which are TI-RADS 4 nodules. The left lobe of the thyroid measures 4.3 x 1.3 x 1.4 cm in size. There are several small less than 10 mm in size nodules present, some of which are TI-RADS category 4 nodules. The isthmus of the thyroid measures 2 mm in thickness. IMPRESSION: Dominant right lobe of the thyroid nodule is essentially stable in appearance when compared to the prior exam of March 2023. According to TI-RADS criteria, a 12-month follow-up thyroid ultrasound is suggested. Reviewed, Interpreted and Dictated by Lul Patton MD Transcribed by Sharon Razo Authenticated and [facility]
[2024-04-20 14:57] LABS: Free T4 (Free Thyroxine) 0.61 ng/dl (0.78-2.19)
[2024-04-20 15:12] LABS: Thyroid Stimulating Hormone 0.14 uIU/mL (0.465-4.68)
== END 2024-04-20 23:59 | disposition home or self-care (01) ==
PROVIDERS: PCP Internal Medicine; Visit Provider Nurse Practitioner
DX: R94.6 Abnormal results of thyroid function studies (principal); R93.89 Abnormal findings on diagnostic imaging of other specified body structures; R13.10 Dysphagia, unspecified
CPT/HCPCS: 36415; 76536; 84439; 84443

== ENCOUNTER 2024-05-20 15:30 | Outpatient (CLI) | payer MEDICARE, MEDICAID, SELFPAY ==
[2024-05-20 15:49] LABS: ABG Base Excess -0.4 mmol/L (-2.4-2.3); ABG HCO3 22.4 mmhg (22.0-26.0); ABG Oxygen Saturation 97 % (90-100); ABG PH 7.52 mmol/L (7.35-7.45); ABG PO2 88.2 mmhg (80-100); ABG TCO2 23.3 mmhg (23-27)
[2024-05-20 15:53] LABS: Oxygen ROOM AIR %
[2024-05-20 15:54] LABS: Source RIGHT BRACHIAL
== END 2024-05-20 23:59 | disposition home or self-care (01) ==
LOC: LAB 15:32
PROVIDERS: PCP Internal Medicine; Visit Provider Specialist
DX: J43.9 Emphysema, unspecified (principal); R51.9 Headache, unspecified
CPT/HCPCS: 82803

== ENCOUNTER 2024-05-22 07:56 | Outpatient (CLI) | payer MEDICARE, MEDICAID, SELFPAY ==
--- NOTE | 2024-05-22 | CA_ITS ---
APPROVED REPORT Exam: Resting ECG Tech: Maddy Duarte Ht:5 ft 3 in Wt:114 lbs BSA: 1.52 m2 HR:57 bpm BP:135/60 mmHg Rhythm: Sinus rajendra, ST ST abns Risk Factors Smoking: ECG Measurements Heart Rate 57 AXES Critical Notification Critical Value: No Conclusion During lexiscan pt experinced SOA, head discomfort, mild increase in pretest lower chest discomfort. Rare PAC noted. Exaggeration of baseline ST abn in lead 3. Unremarkable lexiscan stress. Electronically signed by : Kamini Henriquez MD 05/27/2024 12:18:54
--- NOTE | 2024-05-22 08:04 | NM_ITS ---
APPROVED REPORT Exam: Nuclear Stress Test Indication: tob use, fm hx, c.p., sob, fatigue Patient Location: Outpatient Stress Tech: Maddy Duarte NM Tech:Vilma WheelerFARZANA RT (R)(N)(M) Ht: 5 ft 3 in Wt: 118 lbs Bra Size: 34a HR: 57 bpm BP: 135/60 mmHg BSA: 1.54 m2 TID: 1.23 BMI: 20.9 History: tob use, fm hx, c.p., sob, fatigue pt had to leave left arm extended down due to lt shoulder injury pt could not lay on stomach for prone images due to left shoulder Procedure: Patient received 0.4 mg of intravenous Lexiscan, resting heart rate 57 bpm, resting blood pressure 135/60 mmHg, with Lexiscan maximum heart rate achieved was 90 bpm which is % of the maximum predicted heart rate and blood pressure was 141/58 mmHg. Cardiac Stress and Resting SPECT Images: Cardiac Stress and Resting SPECT images were obtained using technetium 99m Myoview 25.2 mCi stress and 7.18 mCi at rest. Resting and stress imaging in supine position no evidence of focal fixed or reversible perfusion defects. There is increase in transient ischemic dilatation ratio (TID 1.23), suggestive of possible multivessel disease or balanced ischemia. Gated imaging demonstrates normal global and regional LV systolic function. LVEF is calculated at 58%. Conclusion: No evidence of focal fixed or reversible perfusion defects. There is increase in transient ischemic dilatation ratio (TID 1.23), suggestive of possible multivessel disease or balanced ischemia. Gated imaging demonstrates normal global and regional LV systolic function. LVEF is calculated at 58%. Electronically signed by : Kamini Henriquez MD 05/25/2024 15:46:27
[2024-05-22] MEDS: SODIUM CHLORIDE 0.9% 10ML SYR (RAD ONLY) 10 ML IV ×2 (08:10→09:10)
[2024-05-22] MEDS: REGADENOSON 0.4MG/5ML SYRINGE 0.4 MG IV (09:10)
[2024-05-22] MEDS: ISOTOPE MYOVIEW (PER STUDY) 1 DOSE IV (10:07)
== END 2024-05-22 23:59 | disposition home or self-care (01) ==
LOC: RAD 07:56
PROVIDERS: PCP Internal Medicine; Visit Provider Nurse Practitioner
DX: R07.9 Chest pain, unspecified (principal); I25.10 Atherosclerotic heart disease of native coronary artery without angina pectoris; R06.09 Other forms of dyspnea
CPT/HCPCS: 78452; 93017; 93018; A9502; J2785

== ENCOUNTER 2024-05-29 10:59 | Outpatient (CLI) | payer MEDICARE, MEDICAID, SELFPAY ==
[2024-05-29 11:16] VITALS: BMI 19.1
[2024-05-29 13:08] LABS: Chloride 104 mmol/L (98-107); Potassium 4.5 mmoL/L (3.5-5.1); Sodium 137 mmol/L (136-145)
[2024-05-29 13:11] LABS: Blood Urea Nitrogen 17 mg/dl (7-17); Creatinine Clearance Estimated 38 mL/min (50-200); Estimated Glomerular Filt Rate 82 ml/min (>60); GFR (African American) 99 ML/MIN (>60)
[2024-05-29 13:12] LABS: Anion Gap 10.5 mEq/L (5-15); Calcium 9.4 mg/dl (8.4-10.2); Carbon Dioxide 27 mmol/L (22.0-30.0); Glucose 144 mg/dl (74-100)
[2024-05-29 13:14] LABS: Basophils # 0.1 K/mm3 (0-0.2); Basophils % 0.9 % (0.1-2.0); Eosinophils # 0.1 K/mm3 (0.0-0.4); Eosinophils % 1.2 % (0.1-12.0); Hematocrit 38.1 % (37.0-47.0); Lymphocytes # 2.7 K/mm3 (0.7-4.5); Lymphocytes % 29.4 % (10-50); Mean Corpuscular HGB Conc 34.2 g/dL (31.8-35.4); Mean Corpuscular Hemoglobin 29.6 pg (27.0-31.2); Mean Corpuscular Volume 86.6 fl (81-99); Mean Platelet Volume 7.6 fl (7.4-10.4); Monocytes # 0.6 K/mm3 (0.1-1.0); Monocytes % 6.3 % (1.7-9.3); Neutrophils # 5.6 K/mm3 (1.8-7.8); Neutrophils % 62.2 % (37.0-80.0); Platelet Count 263 K/mm3 (142-424); Red Blood Count 4.39 M/mm3 (4.20-5.40); Red Cell Distribution Width 15.8 % (11.5-17.5)
== END 2024-05-29 23:59 | disposition home or self-care (01) ==
LOC: PREOP 11:00
PROVIDERS: PCP Internal Medicine; Visit Provider Anesthesiology
DX: M50.121 Cervical disc disorder at C4-C5 level with radiculopathy (principal)
CPT/HCPCS: 80048; 85025

== ENCOUNTER → 2024-06-05 06:05 | Day surgery (SDC) | payer MEDICARE, MEDICAID, SELFPAY ==
[2024-06-05 06:14] VITALS: BMI 19.1
[2024-06-05 06:37] VITALS: BP 117/55; PULSE 54; RESP 18; TEMP 36.3; O2SAT 98
[2024-06-05] MEDS: LACTATED RINGERS 1000ML 1,000 ML 25 ML IV (06:46)
--- NOTE | 2024-06-05 08:58 | EXP.PAIN.SOA ---
[facility] Disclaimer: The information contained in this section may have been updated after the patient was seen, as this information can be updated by other users. Medical History History of esophageal dilatation Nausea Loss of appetite Hoarseness Deviated septum Dysphagia Near syncope Dizziness Edema New onset Abnormal EKG Memory loss In January this patient had a Mini-Mental status exam which was unremarkable. She may need to have neuropsychiatric testing and we can think about this and send her to Dr. Armendariz for that if necessary. Migraine Weakness of left upper extremity Left arm weakness 04/2023. Admitted to [facility], 24-hour admission with noncontributory results. Dyspnea on exertion Tobacco abuse disorder Tobacco abuse counseling Pulmonary nodule, right Abnormal computerized axial tomography of chest COPD (chronic obstructive pulmonary disease) Dyspnea Cryptogenic stroke Blurry vision Chronic obstructive pulmonary disease On O2 at night Surgical History History of intravascular stent placement cranial stents x2 History of colonoscopy Hx of cholecystectomy History of cardiac cath History of appendectomy Family History Sister Cancer, Onset Age: 77 of cancer; not really sure of type but around stomach area Family/Other Cancer Nephew--unsure of age, but started in shoulder; he passed Other Coronary artery disease Heart attack Social History (Updated 06/05/24 @ 06:31 by Yane Jordan RN) Smoking Status: Current every day smoker tobacco type: cigarettes packs per day: 1 quit status: considering quitting second hand exposure: Yes alcohol intake: never substance use type: denies use current occupational status: retired and other Travel in the last 8 weeks: None household members: family housing: apartment marital status: number of children: 2 education level: high school current occupational exposures/hazards: No caffeine: Yes physical activity: none and walking do you feel safe at home: Yes victim of physical abuse: No victim of emotional abuse: No victim of sexual abuse: No PM Subjective & Objective Subjective Subjective:: This patient had a preop visit with her mock up maker yesterday. She did have chest pain which required nitroglycerin. They have signed her up for heart cath. We have decided to cancel this stimulator trial until she is cleared by cardiology and completed heart cath Pain at rest (0-10 scale): 99 Objective Has patient had previous pain injection?: Yes Percent improvement in pain since last injection: Unknown Conservative treatment options previously tried: NSAIDS Length of treatment: Unknown, Home exercise plan Length of treatment: Unknown and Physical Therapy Length of treatment: Unknown Meds Home Medications and Allergies Home Medications ?Medication ?Instructions ?Recorded ?Confirmed ?Type thiamine mononitrate (vit B1) 100 100 mg PO DAILY 10/04/23 06/05/24 History mg tablet (Vitamin B-1 (mononitrate)) metoprolol succinate 25 mg 25 mg PO DAILY hr #90 tabs 10/29/23 06/05/24 Rx tablet,extended release 24 hr umeclidinium 62.5 mcg-vilanterol 1 inh inhalation DAILY 90 days 10/30/23 06/05/24 Rx 25 mcg/actuation powdr for #180 ea inhalation (Anoro Ellipta) metoclopramide HCl 15 mg/spray 1 spray intranasal DAILY nausea, 01/16/24 06/05/24 Rx nasal spray with pump (Gimoti) slow gastric empty at 212 min 4 weeks #9.8 mL varenicline 1 mg tablet (Chantix) 1 mg PO BID 30 days #60 tabs 05/07/24 06/05/24 Rx clopidogrel 75 mg tablet 75 mg PO DAILY TIA #30 tabs 05/13/24 06/05/24 Rx atogepant 60 mg tablet (Qulipta) 60 mg PO DAILY Episodic migraine 05/21/24 06/05/24 Rx #30 tabs cyproheptadine 4 mg tablet 12 mg (3 x 4 mg) PO HS Migraine 05/21/24 06/05/24 Rx #90 tabs albuterol sulfate 90 mcg/actuation See Rx Instructions .Route .COMPLEX 05/29/24 06/05/24 History aerosol inhaler (Ventolin HFA) atorvastatin 80 mg tablet (Lipitor) 80 mg PO HS 05/29/24 06/05/24 History ezetimibe 10 mg tablet (Zetia) 10 mg PO DAILY 05/29/24 06/05/24 History umeclidinium 62.5 mcg-vilanterol 62.5 ea inhalation DAILY 05/29/24 06/05/24 History 25 mcg/actuation powdr for inhalation (Anoro Ellipta) nitroglycerin 0.4 mg sublingual 0.4 mg sublingual ONCE #1 tab 06/04/24 06/05/24 Rx tablet (Nitrostat) New Prescriptions to Start Prescriptions: Allergies Allergy/AdvReac Type Severity Reaction Status Date / Time chlorzoxazone (From PARAFON Allergy Unknown COULDN'T Verified 06/05/24 06:38 FORTE) MOVE Penicillins (PENICILLINS) Allergy Unknown Rash Verified 06/05/24 06:38 Assessment and Plan *Assessment and plan (1) Atypical angina: Status: Acute Category: Medical Code(s): I20.89 - Other forms of angina pectoris (2) Cervical spondylosis: Status: Acute Category: Medical Code(s): M47.812 - Spondylosis without myelopathy or radiculopathy, cervical region Plan This patient was canceled today because of chest pain and being scheduled for heart cath by her mock up maker. We will cancel her stimulator trial today and reschedule after she has been cleared by cardiology and completed her heart cath.
--- NOTE | 2024-06-05 09:29 | SUR.PREOP ---
case cancelled due to pt having ongoing symptoms of chest pain that was first reported yesterday to SANDRA Lopez. Marcelo ordered for pt to have LHC in office yesterday. Decision was made between MD Glynn and BEN Hernandez to cancel procedure. PIV taken out and DEBBIE Martinez in pain management notified.
== END | disposition home or self-care (01) ==
PROVIDERS: PCP Internal Medicine; Visit Provider Anesthesiology
DX: I20.89 Other forms of angina pectoris (principal); M47.812 Spondylosis without myelopathy or radiculopathy, cervical region; Z53.09 Procedure and treatment not carried out because of other contraindication
CPT/HCPCS: J7120

== ENCOUNTER 2024-06-17 07:53 | Day surgery (SDC) | payer MEDICARE, MEDICAID, SELFPAY ==
[2024-06-17] VITALS (10 sets, daily range): BP systolic 119–128; BP diastolic 44–69; PULSE 60–77; RESP 20–25; TEMP 37.1; O2SAT 90–100; BMI 20.3
--- NOTE | 2024-06-17 07:06 | IR_ITS ---
APPROVED REPORT Patient Location: Outpatient Mural Painter: Gama Lobo, RT (R) PROCEDURES Selective coronary angiogram INDICATION Abnormal Myoview, Angina pectoris, Informed consent was obtained prior to the procedure. COMPLICATIONS NONE Estimated Blood Loss: LESS THAN 10 ML TECHNIQUE One percent lidocaine used to anesthetize the right anterior aspect of the wrist. The right radial artery was accessed via the Seldinger technique. A 6 Senegalese sheath was placed in the right radial artery. 2.5 mg of Verapamil, 800 mcg of nitroglycerin, 1mg Lidocaine and 5000 U Heparin were given through the arterial sheath. The 6 [place]e JL 3 guide catheter was used to perform selective coronary angiogram. At the end of the procedure the sheath was removed good hemostasis was achieved using Traclet band, patient was transferred to the postop holding area in stable condition. ANGIOGRAPHIC RESULTS The left main artery Normal The left anterior descending artery Has proximal and mid vessel smooth 10 to 20% luminal regularities The circumflex artery Nondominant yet still large with mid vessel 10 to 20% stenosis The right coronary artery Dominant with a proximal 30 to 40% stenosis and diffuse 10% luminal regularities The GOLD ventriculogram reveals Not performed The left ventricular end-diastolic pressure Not measured IMPRESSION Moderate disease in the proximal dominant right coronary artery as described above Mild diffuse luminal regularities PLAN 1. Aggressive risk factor modification 2. Empiric treatment for diastolic dysfunction 3. Recommend sleep study 4. Further evaluation of noncardiac symptoms Electronically signed by : Keshawn Lang MD 06/17/2024 10:48:26
[2024-06-17 08:21] LABS: Basophils # 0.2 K/mm3 (0-0.2); Basophils % 1.4 % (0.1-2.0); Eosinophils # 0.4 K/mm3 (0.0-0.4); Eosinophils % 3.1 % (0.1-12.0); Hematocrit 39.4 % (37.0-47.0); Hemoglobin 12.6 g/dL (12.2-16.2); Lymphocytes % 33.1 % (10-50); Mean Corpuscular HGB Conc 32.1 g/dL (31.8-35.4); Mean Corpuscular Hemoglobin 27.8 pg (27.0-31.2); Mean Corpuscular Volume 86.4 fl (81-99); Mean Platelet Volume 7.5 fl (7.4-10.4); Monocytes # 0.8 K/mm3 (0.1-1.0); Neutrophils # 6.7 K/mm3 (1.8-7.8); Neutrophils % 55.5 % (37.0-80.0); Platelet Count 308 K/mm3 (142-424); Red Blood Count 4.56 M/mm3 (4.20-5.40); Red Cell Distribution Width 15.7 % (11.5-17.5); White Blood Count 12.1 K/mm3 (4.8-10.8)
[2024-06-17 08:37] LABS: Anion Gap 11.2 mEq/L (5-15); Blood Urea Nitrogen 16 mg/dl (7-17); Calcium 9.4 mg/dl (8.4-10.2); Carbon Dioxide 26 mmol/L (22.0-30.0); Chloride 110 mmol/L (98-107); Creatinine Clearance Estimated 40 mL/min (50-200); Estimated Glomerular Filt Rate 70 ml/min (>60); GFR (African American) 85 ML/MIN (>60); Glucose 85 mg/dl (74-100); Potassium 4.2 mmoL/L (3.5-5.1); Sodium 143 mmol/L (136-145)
[2024-06-17] MEDS: HEPARIN 1,000 UNITS/500ML NS (CATH LAB) 3000 UNIT IV (09:20)
[2024-06-17] MEDS: 0.9 % SODIUM CHLORIDE 500 ML 25 ML IV (09:21)
[2024-06-17] MEDS: VERAPAMIL 2.5MG/ML 2ML VIAL 2.5 MG IV (09:22)
[2024-06-17] MEDS: LIDOCAINE 1% 10ML MDV 20 ML IJ (09:22)
[2024-06-17] MEDS: HEPARIN 1,000 UNITS/ML 10ML VIAL (CATH LAB) 10000 UNIT IV (09:22)
[2024-06-17] MEDS: MIDAZOLAM HCL 1MG/ML 5ML VIAL 1 MG IV (09:23)
[2024-06-17] MEDS: FENTANYL 100MCG/2ML VIAL 50 MCG IV (09:23)
[2024-06-17] MEDS: NITROGLYCERIN 800MCG/8ML SYR (CATH LAB) 800 MCG IA (09:23)
[2024-06-17] MEDS: diphenhydrAMINE 50MG/ML VIAL 50 MG IV (10:24)
[2024-06-17] MEDS: IOPAMIDOL-370 (76%);100ML BOTTLE 50 ML IV (13:16)
== END 2024-06-17 13:33 | disposition home or self-care (01) ==
PROVIDERS: PCP Internal Medicine; Visit Provider Internal Medicine
DX: I25.118 Atherosclerotic heart disease of native coronary artery with other forms of angina pectoris (principal); R94.39 Abnormal result of other cardiovascular function study; J44.9 Chronic obstructive pulmonary disease, unspecified; F17.210 Nicotine dependence, cigarettes, uncomplicated; I65.23 Occlusion and stenosis of bilateral carotid arteries; Z79.899 Other long term (current) drug therapy; I10 Essential (primary) hypertension; E78.5 Hyperlipidemia, unspecified
CPT/HCPCS: 80048; 85025; 93458; 99152; C1725; C1769; J1200; J1644; J2250; J3010; Q9967

== ENCOUNTER 2024-06-24 10:53 | Outpatient (CLI) | payer MEDICARE, MEDICAID, SELFPAY ==
--- NOTE | 2024-06-24 11:02 | CA_ITS ---
FINAL REPORT CLINICAL HISTORY: PT HAD HEART CATH WITH RIGHT WRIST ACCESS ON 06/17, KNOT AT ACCESS SITE,PT ON PLAVIX FINDINGS: Spectral and Doppler waveform evaluations of the right wrist was performed. Spectral analysis was performed. The right radial artery appears patent. There is no evidence of pseudoaneurysm or occlusion. IMPRESSION: No evidence of pseudoaneurysm or occlusion. Reviewed, Interpreted and Dictated by Bong Fraga III, MD Transcribed by Angelita Judd Authenticated and [facility]
== END 2024-06-24 23:59 | disposition home or self-care (01) ==
LOC: RAD 10:55 → RT 10:58
PROVIDERS: PCP Internal Medicine; Visit Provider Nurse Practitioner
DX: Z48.812 Encounter for surgical aftercare following surgery on the circulatory system (principal); M25.531 Pain in right wrist; Z98.890 Other specified postprocedural states
CPT/HCPCS: 93931

== ENCOUNTER 2024-08-10 13:04 | Outpatient (POV) | payer MEDICARE, MEDICAID, SELFPAY ==
--- NOTE | 2024-08-10 13:16 | EXP.PAIN.SOA ---
[facility] Disclaimer: The information contained in this section may have been updated after the patient was seen, as this information can be updated by other users. Medical History History of esophageal dilatation Nausea Loss of appetite Hoarseness Deviated septum Dysphagia Near syncope Dizziness Edema New onset Abnormal EKG Memory loss In January this patient had a Mini-Mental status exam which was unremarkable. She may need to have neuropsychiatric testing and we can think about this and send her to Dr. Armendariz for that if necessary. Migraine Weakness of left upper extremity Left arm weakness 04/2023. Admitted to [facility], 24-hour admission with noncontributory results. Dyspnea on exertion Tobacco abuse disorder Tobacco abuse counseling Pulmonary nodule, right Abnormal computerized axial tomography of chest COPD (chronic obstructive pulmonary disease) Dyspnea Cryptogenic stroke Blurry vision Chronic obstructive pulmonary disease On O2 at night Surgical History History of intravascular stent placement cranial stents x2 History of colonoscopy Hx of cholecystectomy History of cardiac cath History of appendectomy Family History Sister Cancer, Onset Age: 77 of cancer; not really sure of type but around stomach area Family/Other Cancer Nephew--unsure of age, but started in shoulder; he passed Other Coronary artery disease Heart attack Social History Smoking Status: Current every day smoker tobacco type: cigarettes packs per day: 1 quit status: considering quitting second hand exposure: Yes alcohol intake: never substance use type: denies use current occupational status: other Travel in the last 8 weeks: None household members: family housing: apartment marital status: number of children: 2 education level: high school current occupational exposures/hazards: No caffeine: Yes physical activity: none and walking do you feel safe at home: Yes victim of physical abuse: No victim of emotional abuse: No victim of sexual abuse: No Have you lived/traveled outside [place] in past 30 days?: No Contact w/someone who lives/traveled outside US past 30 days?: No Exposure to someone with infectious disease in past 14 days?: No Do you have a fever (greater than 100.4 F or 38 C)?: No Have you tested positive for COVID-19: No Exposed to someone with COVID-19 in past 14 days?: No Do you have a sore throat?: No Do you have a cough?: No Do you have shortness of breath?: No Do you have a headache?: No Do you have any weakness?: No Are you experiencing any nausea/vomitting?: No Do you have any diarrhea?: No Are you experiencing any unusual bleeding?: No Do you have any muscle aches/pain?: No Do you have any abdominal pain?: No Are you experiencing loss of taste or smell?: No PM Subjective & Objective Subjective Subjective:: Patient is a pleasant 74-year-old female who presents today for follow-up. Today she rates her pain a 8 out of 10. She denies any new trauma or injury. She does state from our last appointment she has moved to [place] with her son. Patient was previously scheduled for spinal cord stimulator trial in May however it was canceled due to having chest pain and needed to be cleared by cardiology and possible heart cath. Today she states she did end up having the cardiac cath and had a 40% blockage. She states that I did not end up stenting this. Patient is still seeing regularly Dr. Lang's office. She does state that he never mentioned whether or not he had any restrictions regarding the spinal cord stimulator trial or implant. She does state that she is still very interested in this option. She states she continues to have the chronic neck pain with radiating numbness and tingling into her left arm down to her fingers as well as daily headaches. It is constant and that she has tried multiple medications and states it does continue to interfere with activities of daily living such as cooking and cleaning. Patient has continued conservative treatment including oral medications such as Tylenol and ibuprofen along with heat and ice and topicals with minimal relief. Patient did have physical therapy with minimal relief. Patient has continued at home stretching exercise for longer than 12 weeks with no additional relief. Her Chris has been reviewed and is appropriate. Review of Systems: General: No recent weight changes, no fever, no sleep disturbances Respiratory: No cough, no shortness of air, no recurring pulmonary infections Cardiovascular/peripheral vascular: No chest pain, no palpitations, no edema, no shortness of breath Gastrointestinal: No new onset incontinence, normal bowel movements reported Genitourinary: No new onset incontinence Musculoskeletal: Neck pain, left arm numbness tingling, chronic headache Psychiatric: [Normal mood/affect] Neurological: [Denies weakness in extremities], [denies balance issues] Pain at rest (0-10 scale): 8 Objective Objective:: Physical Exam: General: Alert and oriented x3, no acute distress, pleasant and cooperative Lungs: Respirations even and unlabored, symmetrical chest expansion Eyes: PERRL Musculoskeletal: Flexion and extension of cervical [spine] somewhat guarded secondary to pain, [antalgic gait noted] positive Spurling's test Neurological: Speech clear, no gross sensory deficit Has patient had previous pain injection?: No Conservative treatment options previously tried: Home exercise plan Length of treatment: Longer than 12 weeks Meds Home Medications and Allergies Home Medications ?Medication ?Instructions ?Recorded ?Confirmed ?Type thiamine mononitrate (vit B1) 100 100 mg PO DAILY 10/04/23 08/10/24 History mg tablet (Vitamin B-1 (mononitrate)) umeclidinium 62.5 mcg-vilanterol 1 inh inhalation DAILY 90 days 10/30/23 08/10/24 Rx 25 mcg/actuation powdr for #180 ea inhalation (Anoro Ellipta) metoclopramide HCl 15 mg/spray 1 spray intranasal DAILY nausea, 01/16/24 08/10/24 Rx nasal spray with pump (Gimoti) slow gastric empty at 212 min 4 weeks #9.8 mL varenicline tartrate 1 mg tablet 1 mg PO BID 30 days #60 tabs 05/07/24 08/10/24 Rx (Chantix) clopidogrel 75 mg tablet 75 mg PO DAILY TIA #30 tabs 05/13/24 08/10/24 Rx atogepant 60 mg tablet (Qulipta) 60 mg PO DAILY Episodic migraine 05/21/24 08/10/24 Rx #30 tabs cyproheptadine 4 mg tablet 12 mg (3 x 4 mg) PO HS Migraine 05/21/24 08/10/24 Rx #90 tabs albuterol sulfate 90 mcg/actuation See Rx Instructions .Route .COMPLEX 05/29/24 08/10/24 History aerosol inhaler (Ventolin HFA) atorvastatin 80 mg tablet (Lipitor) 80 mg PO HS 05/29/24 08/10/24 History ezetimibe 10 mg tablet (Zetia) 10 mg PO DAILY 05/29/24 08/10/24 History nitroglycerin 0.4 mg sublingual 0.4 mg sublingual ONCE #1 tab 06/04/24 08/10/24 Rx tablet (Nitrostat) metoprolol succinate 25 mg 25 mg PO DAILY hr #90 tabs 07/08/24 08/10/24 Rx tablet,extended release 24 hr New Prescriptions to Start Prescriptions: Allergies Allergy/AdvReac Type Severity Reaction Status Date / Time chlorzoxazone (From PARAFON Allergy Unknown COULDN'T Verified 07/09/24 14:53 FORTE) MOVE Penicillins (PENICILLINS) Allergy Unknown Rash Verified 07/09/24 14:53 Assessment and Plan *Assessment and plan (1) Cervical radiculopathy: Status: Acute Category: Medical Code(s): M54.12 - Radiculopathy, cervical region (2) Chronic neck pain: Status: Acute Category: Medical Code(s): M54.2 - Cervicalgia; G89.29 - Other chronic pain Plan Patient is experiencing significant pain with numbness and tingling radiating down into her left extremity and daily headaches. I did discuss with the patient that we will plan on reaching out to Dr. Lang's office to confirm whether or not he has any contraindications to the spinal cord stimulator trial or implant if she has significant relief. Patient was counseled due to her worsening symptoms that she may benefit from a cervical epidural steroid injection. Patient did have limited range of motion of her cervical spine and a positive Spurling's test. Risk and benefits were reviewed with the patient and she would like to proceed forward with this plan of care. Patient is currently on blood thinners and will have to stop this medication prior to this injection. Patient acknowledges understanding. We will confirm with Dr. Lang's office if there are no contraindications. Patient has not had any cervical epidural since 2022 however would get good relief however frequently was just very temporary. Patient's last imaging did have more significant narrowing at the C5-C6 level. I have discussed that I do believe that it would be more beneficial to proceed forward at this epidural space. Patient will be scheduled for a KELSY C5-C6 under fluoroscopy. Patient has continued conservative treatment with no additional improvement including physician guided at home stretching exercise for longer than 12 weeks. Patient has been instructed to contact the clinic with any concerns before the next appointment. Dr. Glynn has reviewed this note and agrees with this plan of care. This note was dictated using voice recognition software and make contain errors or omissions. All injections are used with Lidocaine, Bupivacaine and Depo Medrol. Occasionally urine drug screen is needed to verify patient's compliance with our office pain contract. This is ordered based off specific treatments related to chronic pain with the potential to abuse certain medications.
[2024-08-10 13:54] VITALS: BP 141/67; PULSE 91; RESP 16; O2SAT 100; BMI 20.9
== END 2024-08-10 23:59 | disposition home or self-care (01) ==
LOC: SC.PAIN 13:05
PROVIDERS: PCP Internal Medicine; Visit Provider Nurse Practitioner Family
DX: M54.12 Radiculopathy, cervical region (principal); M54.2 Cervicalgia; G89.29 Other chronic pain; F17.210 Nicotine dependence, cigarettes, uncomplicated; Z73.89 Other problems related to life management difficulty
CPT/HCPCS: 99212; G0463

== ENCOUNTER 2025-01-01 10:48 | Outpatient (CLI) | payer MEDICARE, MEDICAID, SELFPAY ==
--- OUTSIDE RECORDS SUMMARY | 2025-01-01 10:55 | XMS_ITS | Clinical Summary ---
Author Organization [employer] Address [address] [place] [address] Care Team Providers Care Electrical Hardware Engineer Name Role Phone Paulo Wills DO Primary Care Provider [phone] Allergies No known active allergies Medications ezetimibe (ZETIA) 10 mg tablet Take 1 tablet (10 mg total) by mouth nightly. Active metoprolol succinate (TOPROL-XL) 25 MG 24 hr tablet Take 1 tablet (25 mg total) by mouth daily. Active thiamine (vitamin B-1) 100 MG tablet Take 1 tablet (100 mg total) by mouth daily. Active atogepant 60 mg tab Take by mouth. Active atorvastatin (LIPITOR) 20 MG tablet Take 1 tablet (20 mg total) by mouth nightly. Active clopidogreL (PLAVIX) 75 mg tablet Take 1 tablet (75 mg total) by mouth daily Look-kenzie e/Sound-ali ke medication* *. Active spironolactone (ALDACTONE) 25 MG tablet Take 1 tablet (25 mg total) by mouth daily. Active Social History Tobacco Use Types Packs/Day Years Used Date Smoking Tobacco: Former Cigarettes Smokeless Tobacco: Never Tobacco Cessation:Counseling Given: No Alcohol Use Standard Drinks/Week Comments Yes 0 (1 standard drink = 0.6 oz pur e alcohol) Comments Unknown Sex and Gender Information Value Date Recorded Sex Assigned at Not on file Legal Sex Female 11:21 AM CDT Gender Identity Not on file Sexual Orientation Not on file Last Filed Vital Signs Vital Sign Reading Time Taken Comments Blood Pressure 141/63 09/03/2024 11:33 PM EST Pulse 62 09/03/2024 11:33 PM EST Temperature 37 C (98.6 F) 09/03/2024 11:50 PM EST Respiratory Rate 17 09/03/2024 8:15 PM EST Oxygen Saturation 96% 09/03/2024 11:33 PM EST Inhaled Oxygen Concentration - - Weight 53.5 kg (118 lb) 09/03/2024 8:15 PM EST Height 160 cm (5' 3 ) 09/03/2024 8:15 PM EST Body Mass Index 20.9 09/03/2024 8:15 PM EST Plan of Treatment Health Maintenance Due Date Last Done Comments CT Colonography 1949 Colonoscopy 1949 Colorectal Cancer Screening 1949 DXA SCAN 1949 FOBT/FIT 1949 Fit-DNA (Cologuard) 1949 Sigmoidoscopy 1949 Depression Screening (12+) 1961 Hepatitis C Screening 1967 Pneumococcal 50+ years (1 of 1 - PCV) 1999 Shingles Vaccine (Zoster) (1 of 2) 1999 DTAP/TDAP/TD VACCINES (2 - Td or Tdap) 09/23/2006 COVID-19 VACCINE ( - season) 2024 Respiratory Syncytial Virus (RSV) Adult or (1 - 1-dose 75+ series) 2024 Falls Risk Screening 07/22/2024 Medicare IPPE (Welcome to Medicare) [id number] 08/22/2024 Influenza Vaccine (Season Ended) 2025 Tobacco Cessation Counseling and Screening (12+) 09/0309/03/2024 Insurance [employer] Care Teams Electrical Hardware Engineer Relationship Specialty Start Date End Date Paulo Wills DO PCP - General Internal Medicine 09/03/24
--- OUTSIDE RECORDS SUMMARY | 2025-01-01 10:55 | XMS_ITS | Referral Summary ---
Author Organization [employer] Address [address] [place] [address] Care Team Providers Care Babcock Tester Name Role Phone Paulo Wills DO Primary Care Provider [phone] Allergies No known active allergies Medications ezetimibe [...] 09/03/2024 8:15 PM EST Plan of Treatment Not on file Insurance [employer] Care Teams Babcock Tester Relationship Specialty Start Date End Date Paulo Wills DO PCP - General Internal Medicine 09/03/24
--- OUTSIDE RECORDS SUMMARY | 2025-01-01 11:55 | XMS_ITS | CCD ---
Author Organization Unknown Care Team Providers Care Leak Operator Paraffin Plant Name Role Phone Unavailable Primary Care Provider Unavailabl e Unavailable Chronic Care Management Unavaila ble Summary Purpose DataExchange Insurance Providers Payer name Policy type / Coverage type Covered alliance party ID Effective Begin Date Effective End Date [facility] [id number] Unknown Unknown Family History Family History data not found Medication Administered No Medication Administered data Reason For Visit No Reason For Visit data Medical Equipment No Medical Equipment data Advance Directives No Advance Directive data
--- OUTSIDE RECORDS SUMMARY | 2025-01-01 11:55 | XMS_ITS | CCD ---
Author Organization Unknown Care Team Providers Care Forging Press Operator Name Role Phone Unavailable Primary Care Provider Unavailabl e Unavailable Chronic Care Management Unavaila ble Summary Purpose DataExchange Insurance Providers Payer name Policy type / Coverage type Covered republican ID Effective Begin Date Effective End Date [facility] [id number] Unknown Unknown Family History Family History data not found Medication Administered No Medication Administered data Reason For Visit No Reason For Visit data Medical Equipment No Medical Equipment data Advance Directives No Advance Directive data
--- NOTE | 2025-01-01 13:00 | CT_ITS ---
FINAL REPORT TECHNIQUE: Axial images were obtained through the chest without contrast. Reconstructed images were obtained and reviewed. This study was performed with techniques to keep radiation doses as low as reasonably achievable, (ALARA). Individualized dose reduction techniques using automated exposure control or adjustment of mA and/or kV according to the patient's size were employed. CLINICAL HISTORY: Nodule, smoker x 25 yrs, cough COMPARISON: 03/03/2024 and 03/12/2023 FINDINGS: There is dense vascular calcification of the aortic arch. The gallbladder is surgically absent. There are mild couple benign-appearing cysts in the left kidney. Individual cysts measure up to 2.7 cm. There is lipomatous hypertrophy of the interatrial septum. There is bilateral pleural and parenchymal scarring, similar to prior. Findings are asymmetrically more evident on the right than left. These findings have been stable since September 2023. There is an opacity in the anterior right upper lobe measuring 2.1 x 1.7 cm, previously measured 1.5 x 1.0 cm. There is scarring in the right middle lobe and both bases. There is a small nodular density at the left base measuring 6 mm in greatest dimension. This is new since prior and well-seen on image 68 of series 2. IMPRESSION: Density in the anterior right upper lobe nodule measures 2.1 x 1.7 cm. This has increased in size as compared to more remote prior exams. Recommend PET/CT to further characterize. Reviewed, Interpreted and Dictated by Lul Patton MD Transcribed by Angelita Judd Authenticated and [facility]
== END 2025-01-01 23:59 | disposition home or self-care (01) ==
LOC: RAD 10:50
PROVIDERS: PCP Family Medicine; Visit Provider Internal Medicine Pulmonary Disease
DX: R91.1 Solitary pulmonary nodule (principal); J98.4 Other disorders of lung; N28.1 Cyst of kidney, acquired; D17.4 Benign lipomatous neoplasm of intrathoracic organs; Z90.49 Acquired absence of other specified parts of digestive tract
CPT/HCPCS: 71250